=== PATIENT | male | born 1955 | race Caucasian/White ===

== ENCOUNTER 2017-08-20 07:09 | Outpatient (CLI) ==
--- NOTE | 2017-08-20 07:55 | DI ---
Exam: Three x-rays of the chest. Comparison: 12/23/2013. Reason for exam: Cough. FINDINGS: No pneumothorax, pleural effusion, or focal consolidation. The cardiac silhouette is not enlarged. Operative changes are seen after anterior cervical discectomy and fusion. There is flatten ing of the hemidiaphragms suggesting chronic lung disease. Impression: No acute cardiopulmonary process.
--- NOTE | 2017-08-20 07:58 | DI ---
Exam: Two x-rays of the right hip. Comparison: None available. Reason for exam: Pain. FINDINGS: No acute fracture or malalignment. The femoral head articulates with the acetabulum. Alexander gical clips are seen in the right groin. There is mild degenerative disease with acetabular sclerosi s. Impression: No acute fracture or malalignment in the right hip with mild degenerative disease
--- NOTE | 2017-08-20 08:00 | DI ---
Exam: Three x-rays of the lumbar spine. Comparison: None available. Reason for exam: Pain. FINDINGS: Intervertebral body graft spacer placement is seen at L4-L5. There is multilevel degenera tive disease with osteophyte formation and facet hypertrophy with intervertebral body disc space heig ht narrowing. There is no evidence of acute fracture or graft extrusion. Vascular calcifications ar e seen within the abdominal aorta. Impression: 1. No acute fracture or listhesis in the lumbar spine. 2. Multilevel degenerative disease with osteophyte formation, facet hypertrophy, and intervertebral body disc space height narrowing. 3. Intervertebral body graft spacer placement at L4-L5 without evidence of graft extrusion. Recomme nd comparison to previous imaging.
== END 2017-08-20 07:10 | disposition home or self-care (01) ==
LOC: RAD 07:09
PROVIDERS: ATTEND Internal Medicine
DX: M54.41 Lumbago with sciatica, right side (principal); R05 Cough

== ENCOUNTER 2018-04-19 16:46 | Emergency (ER) ==
[2018-04-19 16:52] VITALS: TEMP 97.8; BMI 26.9
[2018-04-19] MEDS ORDERED: DILAUDID 0.5 MG/0.5 ML SYRINGE IVP STA (17:05)
[2018-04-19] MEDS ORDERED: ZOFRAN 4 MG/2 ML IVP STA (17:07)
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
[2018-04-19] MEDS ORDERED: TENIVAC IM ONE (17:27)
[2018-04-19] MEDS ORDERED: ROCEPHIN 1 GM in SODIUM CHLORIDE 50 ML IV STA (17:28)
[2018-04-19] MEDS ORDERED: ROCEPHIN ONE (17:31)
[2018-04-19 18:06] VITALS: BP 100/70
== END 2018-04-19 18:25 | disposition short-term general hospital (02) ==
LOC: ED 16:46
DX: T23.352A Burn of third degree of left palm, initial encounter (principal); T23.342A Burn of third degree of multiple left fingers (nail), including thumb, initial encounter; T23.392A Burn of third degree of multiple sites of left wrist and hand, initial encounter; W40.1XXA Explosion of explosive gases, initial encounter; E11.9 Type 2 diabetes mellitus without complications; I10 Essential (primary) hypertension
CPT/HCPCS: 36415; 80053; 85025; 90471; 90714; 96361; 96365; 96375; 99285

== ENCOUNTER 2018-06-01 13:31 | Outpatient (CLI) ==
[2018-06-01 22:26] VITALS: TEMP 98.8
[2018-06-01 23:03] VITALS: BP 116/80
== END 2018-06-01 23:30 | disposition home or self-care (01) ==
LOC: LAB 13:31 → OPMED 23:30
PROVIDERS: ATTEND Internal Medicine
DX: R06.02 Shortness of breath (principal); I25.10 Atherosclerotic heart disease of native coronary artery without angina pectoris; D64.9 Anemia, unspecified
CPT/HCPCS: 36415; 36430; 82607; 82728; 82746; 83540; 83550; 85025; 85045; 86850; 86900; 86922

== ENCOUNTER 2018-06-08 10:51 | Outpatient (CLI) | END 2018-06-08 10:52 | disposition home or self-care (01) | LOC: LAB 10:51 | PROVIDERS: ATTEND Internal Medicine | DX: D64.9 Anemia, unspecified (principal) | CPT/HCPCS: 36415; 85025 ==

== ENCOUNTER 2018-06-15 10:37 | Outpatient (CLI) | END 2018-06-15 10:38 | disposition home or self-care (01) | LOC: LAB 10:37 | PROVIDERS: ATTEND Internal Medicine | DX: D64.9 Anemia, unspecified (principal) | CPT/HCPCS: 36415; 85025 ==

== ENCOUNTER 2022-01-29 16:25 | Inpatient (IN) ==
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
[2022-01-29] MEDS ORDERED: DUONEB NEB ONE (17:08)
[2022-01-29 17:09] LABS: BASOPHILS % (AUTO) 0.1 % (0.0-3.0); EOSINOPHILS % (AUTO) 0.1 % (0.0-7.0); HEMATOCRIT 22.9 % (42.0-52.0); IMMATURE GRANULOCYTE % (AUTO) 0.4 % (0.0-5.0); LYMPHOCYTES # (AUTO) 1.1 K/uL (0.60-3.4); LYMPHOCYTES % (AUTO) 13.2 (10.0-50.0); MEAN CORPUSCULAR HEMOGLOBIN 32.4 pg (27.0-31.0); MEAN CORPUSCULAR HGB CONC 34.9 (31.8-35.4); MEAN CORPUSCULAR VOLUME 92.7 fl (80.0-94.0); MONOCYTES # (AUTO) 0.7 K/uL (0.4-2.0); MONOCYTES % (AUTO) 8.3 (0-10); NEUTROPHILS # (AUTO) 6.4 K/ul (2.0-6.9); NEUTROPHILS % (AUTO) 77.9 % (42.2-75.2); PLATELET COUNT 104 10^3/uL (140-440); RDW COEFFICIENT OF VARIATION 14.1 % (11.6-14.8); RED BLOOD COUNT 2.47 10^6/ul (4.70-6.10); WHITE BLOOD COUNT 8.18 K/ul (4.2-10.2)
[2022-01-29 17:20] LABS: ALBUMIN 3.95 g/dL (3.5-5.0); ALKALINE PHOSPHATASE 48.5 U/L (56-119); ASPARTATE AMINO TRANSFERASE 146.6 U/L (17-59); BILIRUBIN,TOTAL 0.68 mg/dL (0.2-1.3); BLOOD UREA NITROGEN 38.8 mg/dL (9-20); CALCIUM 8.89 mg/dL (8.4-10.2); CARBON DIOXIDE 24.4 mmol/L (22-30.0); CHLORIDE 92.4 mmol/L (98-107); GLUCOSE 119.5 mg/dL (74-106); POTASSIUM 4.62 mmol/L (3.5-5.1); SODIUM 127.1 mmol/L (134.5-145); TOTAL PROTEIN 6.5 g/dL (6.3-8.2)
--- NOTE | 2022-01-29 18:46 | CT ---
EXAM: CT of the cervical spine without contrast TECHNIQUE: Noncontrast CT of the cervical spine performed with multiplanar reformats. HISTORY: Fall, neck pain. COMPARISON: CT cervical spine 09/06/2019. FINDINGS: No acute fracture. Straightening of the cervical lordosis. Status post C3 - C6 ACDF. No evidence of hardware complication. Multilevel degenerative changes are present including severe facet arthrosis on the left at C2-C3 and severe disc height loss and endplate degeneration and C6-C7. Degenerative pannus also noted around the dens. No evidence of severe osseous spinal canal stenosis. Multilevel moderate and severe osseous neural f oraminal stenosis. Multifocal calcific atherosclerosis including heavy calcified plaque at the bilaterally. Paraseptal emphysematous changes at the lung apices IMPRESSION: No fracture of the cervical spine. Status post C3 - C6 ACDF, no evidence of hardware complication. All CT scans are performed using dose optimization techniques as appropriate to the performed exam an d include at least one of the following: Automated exposure control, adjustment of the mA and/or kV according t o size, and the use of iterative reconstruction technique.
--- NOTE | 2022-01-29 18:46 | CT ---
EXAM: CT scan of head without contrast. HISTORY: Fall, forehead laceration COMPARISON: CT 09/06/2019 TECHNIQUE: Axial scans acquired at 5 mm slice thicknesses. Coronal and sagittal sequence completed FINDINGS: There is no intra or extra-axial hemorrhage seen. No mass or shift of midline structures is seen. There is some cortical atrophy involving the frontal and parietal lobes. There is decrease d attenuation seen in the periventricular matter consistent with chronic microvascular ischemic hyman es. No acute large vessel cerebrovascular accident is seen. Ventricles appear normal considering de gree of atrophy. There are no air-fluid levels visualized sinuses and no opacification mastoid air c ells is seen. IMPRESSION: 1. No acute intracranial finding is seen. 2. No intracranial hemorrhage or large vessel cerebrovascular accident identified. Mild cerebral at rophy and mild chronic supratentorial small vessel ischemic changes. Cavernous internal carotid kathrine morris atherosclerosis 3. Scalp contusion/laceration involving frontal scalp without adjacent cranial fracture. No radiopa que foreign body involving scalp All CT scans are performed using dose optimization techniques as appropriate to the performed exam an d include at least one of the following: Automated exposure control, adjustment of the mA and/or kV according t o size, and the use of iterative reconstruction technique.
[2022-01-29] MEDS ORDERED: NORCO 10-325 PO ONE (18:53)
[2022-01-29 20:19] LABS: OCCULT BLOOD SAMPLE 1 POSITIVE (NEGATIVE)
[2022-01-29 21:55] LABS: ADENOVIRUS (PCR) NOT DETECTED (NOT DETECT); BORDETELLA PARAPERTUSSIS (PCR) NOT DETECTED (NOT DETECT); BORDETELLA PERTUSSIS (PCR) NOT DETECTED (NOT DETECT); CHLAMYDIA PNEUMONIAE (PCR) NOT DETECTED (NOT DETECT); CORONAVIRUS 229E (PCR) NOT DETECTED (NOT DETECT); CORONAVIRUS HKU1 (PCR) NOT DETECTED (NOT DETECT); CORONAVIRUS NL63 (PCR) NOT DETECTED (NOT DETECT); CORONAVIRUS OC43 (PCR) NOT DETECTED (NOT DETECT); HUMAN METAPNEUMOVIRUS (PCR) NOT DETECTED (NOT DETECT); HUMAN RHINOVIRUS/ENTEROV (PCR) NOT DETECTED (NOT DETECT); INFLUENZA B (PCR) NOT DETECTED (NOT DETECT); MYCOPLASMA PNEUMONIAE (PCR) NOT DETECTED (NOT DETECT); PARAINFLUENZA VIRUS 1 (PCR) NOT DETECTED (NOT DETECT); PARAINFLUENZA VIRUS 2 (PCR) NOT DETECTED (NOT DETECT); PARAINFLUENZA VIRUS 3 (PCR) NOT DETECTED (NOT DETECT); PARAINFLUENZA VIRUS 4 (PCR) NOT DETECTED (NOT DETECT); RESPIRATORY SYNCYTIAL V (PCR) NOT DETECTED (NOT DETECT); SARS_COV_2 (PCR) NOT DETECTED (NOT DETECT)
[2022-01-29 22:12] LABS: ABG PH 7.52 (7.35-7.45)
[2022-01-29 22:13] LABS: BEecf 0.8 (-2.0-3.0); COHb 1.9 (0.5-1.5); HCO3 23.7 (21-28)
[2022-01-29 22:14] LABS: ABG O2 HGB 93.9 % (95-100); MetHb 1.4 (0-1.5); TCO2 24.6 (19-24); sO2 95.7 % (94-98); tHb 8.5 g/dl (11.7-17.4)
[2022-01-29] MEDS ORDERED: ATROPINE SULFATE PFS IVP PRN (23:34)
[2022-01-29] MEDS ORDERED: NITROSTAT SL PRN (23:34)
[2022-01-30] MEDS: SODIUM CHLORIDE 1,000 ML IV SCH ×2 (00:11→09:27)
[2022-01-30] MEDS: DECADRON IVP SCH ×2 (00:11→09:29)
[2022-01-30 01:13] VITALS: BMI 21.2
[2022-01-30] MEDS ORDERED: NORCO 10-325 PO PRN (01:53)
[2022-01-30 05:29] LABS: BASOPHILS % (AUTO) 0.2 % (0.0-3.0); HEMATOCRIT 20.3 % (42.0-52.0); HEMOGLOBIN 7.1 g/dl (14.0-18.0); IMMATURE GRANULOCYTE % (AUTO) 0.3 % (0.0-5.0); LYMPHOCYTES # (AUTO) 0.6 K/uL (0.60-3.4); LYMPHOCYTES % (AUTO) 10.2 (10.0-50.0); MEAN CORPUSCULAR HEMOGLOBIN 32.1 pg (27.0-31.0); MEAN CORPUSCULAR VOLUME 91.9 fl (80.0-94.0); MONOCYTES # (AUTO) 0.3 K/uL (0.4-2.0); MONOCYTES % (AUTO) 4.6 (0-10); NEUTROPHILS # (AUTO) 5.1 K/ul (2.0-6.9); NEUTROPHILS % (AUTO) 84.7 % (42.2-75.2); PLATELET COUNT 87 10^3/uL (140-440); RDW COEFFICIENT OF VARIATION 14.1 % (11.6-14.8); RED BLOOD COUNT 2.21 10^6/ul (4.70-6.10); WHITE BLOOD COUNT 6.06 K/ul (4.2-10.2)
[2022-01-30 05:42] LABS: ALANINE AMINOTRANSFERASE 70.7 U/L (0-50); ALBUMIN 3.55 g/dL (3.5-5.0); ALKALINE PHOSPHATASE 45.9 U/L (56-119); ASPARTATE AMINO TRANSFERASE 139.8 U/L (17-59); BILIRUBIN,TOTAL 0.58 mg/dL (0.2-1.3); BLOOD UREA NITROGEN 39.2 mg/dL (9-20); CALCIUM 8.28 mg/dL (8.4-10.2); CARBON DIOXIDE 23.8 mmol/L (22-30.0); CHLORIDE 93.9 mmol/L (98-107); CREATININE 1.79 mg/dL (0.60-1.10); GLUCOSE 120.5 mg/dL (74-106); POTASSIUM 4.19 mmol/L (3.5-5.1); TOTAL PROTEIN 6.05 g/dL (6.3-8.2)
[2022-01-30 05:53] LABS: TROPONIN I 0.051 ng/ml (0.0000-0.120)
[2022-01-30 05:58] LABS: CREATINE KINASE MB 2.77 ng/ml (0.0-2.38)
[2022-01-30 07:58] LABS: BILIRUBIN,URINE Negative (NEGATIVE); CLARITY,URINE Clear (CLEAR); COLOR,URINE Yellow (YELLOW); GLUCOSE, URINE (UA) Negative (NEGATIVE); KETONES,URINE Negative (NEGATIVE); LEUKOCYTE ESTERASE ,URINE Negative (NEGATIVE); NITRITE,URINE Negative (NEGATIVE); PH,URINE 5.5 (5-9); PROTEIN,URINE Negative (NEGATIVE); URINE, BLOOD Negative (NEGATIVE); UROBILINOGEN,URINE 0.2 (0.2)
[2022-01-30] MEDS ORDERED: GLUCOPHAGE PO SCH (08:30)
[2022-01-30] MEDS ORDERED: PRILOSEC PO SCH (09:00)
[2022-01-30] MEDS: PLAVIX PO SCH (09:29)
[2022-01-30] MEDS: LEXAPRO PO SCH (09:29)
[2022-01-30] MEDS: PROTONIX PO SCH ×2 (09:29→16:29)
[2022-01-30] MEDS: SODIUM CHLORIDE 500 ML IV SCH ×2 (09:29→15:57)
[2022-01-30] MEDS: ROCEPHIN 1 GM/50 ML D5W 1 GM/50 ML BAG IV SCH (09:29)
[2022-01-30] MEDS: NEURONTIN PO SCH ×2 (09:29→20:15)
[2022-01-30 10:14] LABS: ALANINE AMINOTRANSFERASE 73.1 U/L (0-50); ALBUMIN 3.51 g/dL (3.5-5.0); ALKALINE PHOSPHATASE 46.3 U/L (56-119); ASPARTATE AMINO TRANSFERASE 139.4 U/L (17-59); BILIRUBIN,TOTAL 0.62 mg/dL (0.2-1.3); TOTAL PROTEIN 5.76 g/dL (6.3-8.2)
--- NOTE | 2022-01-30 10:41 | PCM.PROG ---
Attending Provider: ATTENDING PROVIDER: Dr. CHIRAG JUDGE This patient is seen with Colleen Farmer, Nurse Practitioner. DATE OF SERVICE: 01/30/22 SUBJECTIVE: This 67 year old /WHITE M was hospitalized 01/29/22. The patient came through the ER last night. He had fallen at home hitting his head on coffee table. Kidney function is significantly elevated. Liver function is elevated. Renal function has improved this morning. Hgb is down to 7.1. He has weakness, pallor and shortness of breath. He says he has slight abdominal pain but denies any tenderness. REVIEW OF SYSTEMS: CONSTITUTIONAL: No night sweats. No fatigue, malaise, lethargy. No fever or chills. Weakness. HEENT: Eyes: No visual changes. No eye pain. No eye discharge. ENT: No runny nose. No epistaxis. No sinus pain. No odynophagia. No congestion. RESPIRATORY: No cough, no congestion. No hemoptysis. No shortness of breath. CARDIOVASCULAR: No angina symptoms. No CHF symptoms. No atypical chest pain for CAD. No palpitations. No orthopnea.. GASTROINTESTINAL: Abdominal pain. No nausea or vomiting. No diarrhea or constipation. No hematemesis. No hematochezia. GENITOURINARY: No urgency. No frequency. No dysuria. No hematuria. No obstructive symptoms. No discharge. No pain. No significant abnormal bleeding. MUSCULOSKELETAL: No musculoskeletal pain; no joint swelling. NEUROLOGICAL: Awake, alert, oriented to time, place and person. No headache. No neck pain. No syncope. No seizures. No dizziness. PSYCHIATRIC: Not anxious. No depression. No suicidal thoughts. No homicidal thoughts. SKIN: No rash. No lesions. No wounds. Pallor. ENDOCRINE: No unexplained weight loss. No weight gain. HEMATOLOGIC/LYMPHATIC: Anemia. No purpura. No petechiae. No prolonged or excessive bleeding. No palpable lymph nodes. PHYSICAL EXAMINATION: GENERAL: The patient is awake, alert and oriented, sitting in bed in no distress. VITAL SIGNS: Temperature 98.3 F, Pulse 95, Respiratory Rate 18, BP 119/68, Pulse Ox 96% HEENT: Head normocephalic, atraumatic. Eyes: Extraocular muscles are intact. Pupils are equal, round and reactive to light and accommodation. Ears: No lesions. Nose appeared normal. Throat: No exudate or erythema. NECK: Supple. No JVD, no carotid bruit. No lymphadenopathy or thyromegaly. LUNGS: Diminished breath sounds. Clear to auscultation. Percussion note normal. Chest symmetrical. HEART: S1, S2, no S3. No murmurs. No cyanosis or clubbing. No ascites. Pulses: Dorsalis pedis and posterior tibial pulses +1 to +2 both sides. ABDOMEN: Soft. Non-tender. Bowel sounds active. No CVA tenderness. No mass felt. EXTREMITIES: No edema. Full range of motion of all extremities, equal. NEUROLOGIC: No focal deficit. Cranial nerves II through XII are grossly intact. No headache. No double vision. SKIN: Not dry. Intact. Turgor-normal. Pallor LYMPHATIC: No palpable lymph nodes/no lymphedema. MUSCULOSKELETAL: Normal joints with no swelling. Muscle tone is normal. LAB REVIEW: 01/30/22 05:09 01/30/22 05:09 01/30/22 07:40: Urine Color Yellow, Urine Clarity Clear, Urine pH 5.5, Ur Specific [place] 1.025, Urine Protein Negative, Urine Glucose (UA) Negative, Urine Ketones Negative, Urine Blood Negative, Urine Nitrite Negative, Urine Bili giraldo Negative, Urine Urobilinogen 0.2, Ur Leukocyte Esterase Negative 01/30/22 05:09: Sodium 126.0 L, Potassium 4.19, Chloride 93.9 L, Carbon Dioxide 23.8, Anion Gap 12.49, BUN 39.2 H, Creatinine 1.79 H, Estimated GFR (MDRD) 38.00, BUN/Creatinine Ratio 21.89, Glucose 120.5 H, Calcium 8.28 L, Total Bilirubin 0.58, AST 139.8 H, ALT 70.7 H, Alkaline Phosphatase 45.9 L, Total Creatine Kinase 258.0 H, CK-MB (CK-2) 2.770 H, CK-MB (CK-2) % 1.0700, Troponin I 0.051, Total Protein 6.05 L, Albumin 3.55, Globulin 2.50, Albumin/Globulin Ratio 1.42 01/30/22 05:09: WBC 6.06, RBC 2.21 L, Hgb 7.1 L, Hct 20.3 L, MCV 91.9, MCH 32.1 H, MCHC 35.0, RDW Coeff of Delia 14.1, Plt Count 87 L, Immature Gran % (Auto) 0.3, Neut % (Auto) 84.7 H, Lymph % (Auto) 10.2, [place] % (Auto) 4.6, Eos % (Auto) 0.0, Baso % (Auto) 0.2, Neut # (Auto) 5.1, Lymph # (Auto) 0.6, [place] # (Auto) 0.3 L, Eos # (Auto) 0.0, Baso # (Auto) 0.0, Immature Gran # (Auto) 0.0 01/29/22 21:00: Adenovirus (PCR) Not detected, B. pertussis DNA (PCR) Not detected, B.parapertussis DNA PCR Not detected, C. pneumoniae DNA (PCR) Not detected, Coronavirus OC43 (PCR) Not detected, Coronavirus HKU1 (PCR) Not detected, Coronavirus 229E (PCR) Not detected, Coronavirus NL63 (PCR) Not detected, Human Metapneumovir PCR Not detected, Influenza Type A (PCR) Not detected, Influenza B (RT-PCR) Not detected, M. pneumoniae (PCR) Not detected, Parainfluenza 1 (PCR) Not detected, Parainfluenza 2 (PCR) Not detected, Parainfluenza 3 (PCR) Not detected, Parainfluenza 4 (PCR) Not detected, RSV (PCR) Not detected, Entero/Rhino (PCR) Not detected, SARS-CoV-2 (PCR) Not detected 01/29/22 21:00: Puncture Site Rrad, Base Excess 0.8, O2 Saturation 95.7, ABG pH 7.52 H*, ABG pCO2 29.0 L, ABG pO2 71.0 L, ABG HCO3 23.7, ABG Total CO2 24.6 H, Tony Test +, Hemoglobin 1.4, Oxyhemoglobin 93.9 L, Carboxyhemoglobin 1.9 H, Total Hemoglobin 8.5 L 01/29/22 18:53: Stl Occult Blood (IFOB) Positive 01/29/22 17:03: Sodium 127.1 L, Potassium 4.62, Chloride 92.4 L, Carbon Dioxide 24.4, Anion Gap 14.92, BUN 38.8 H, Creatinine 2.00 H, Estimated GFR (MDRD) 33 .00, BUN/Creatinine Ratio 19.40, Glucose 119.5 H, Calcium 8.89, Total Bilirubin 0.68, AST 146.6 H, ALT 59.0 H, Alkaline Phosphatase 48.5 L, Total Protein 6.50, Albumin 3.95, Globulin 2.55, Albumin/Globulin Ratio 1.54 01/29/22 17:03: WBC 8.18, RBC 2.47 L, Hgb 8.0 L, Hct 22.9 L, MCV 92.7, MCH 32.4 H, MCHC 34.9, RDW Coeff of Delia 14.1, Plt Count 104 L, Immature Gran % (Auto) 0.4, Neut % (Auto) 77.9 H, Lymph % (Auto) 13.2, [place] % (Auto) 8.3, Eos % (Auto) 0.1, Baso % (Auto) 0.1, Neut # (Auto) 6.4, Lymph # (Auto) 1.1, [place] # (Auto) 0.7, Eos # (Auto) 0.0, Baso # (Auto) 0.0, Immature Gran # (Auto) 0.0 ASSESSMENT: Please see below. 1. Symptomatic anemia, positive occult 2. Elevated liver function 3. Acute kidney injury 4. Head injury with laceration PLAN: 1. CTA neck 2. Type and cross and give two unit 3. CT of abdomen and pelvis with and without 3. Decrease fluids to 83cc an hour 5. Hepatitis Panel 6. Hold Metformin 7. Chest x-ray 8. Protonix 40mg BID 9. Discontinue Omeprazole 10.Hold Lipitor 11.Restart Plavix Plan and coordination of the patient's care discussed in the presence of Helper Shear Operator and nurse. SCRIBED BY: Kyle CARVERist scribed while in presence of service performed by Dr. Judge/Colleen Farmer APRN on 01/30/22 ([id number])
[2022-01-30] MEDS: TYLENOL PO PRN (12:03)
[2022-01-30 12:32] LABS: OCCULT BLOOD SAMPLE 2 NO SPECIMEN RECEIVED (NEGATIVE); OCCULT BLOOD SAMPLE 3 NO SPECIMEN RECEIVED (NEGATIVE)
--- NOTE | 2022-01-30 14:07 | DI ---
EXAM: Chest one view, frontal view only. HISTORY: Chest trauma due to a fall. Chronic obstructive pulmonary disease. COMPARISON: 01/21/2022. FINDINGS: The heart size is normal. There is no pulmonary vascular congestion. Calcified granuloma tous changes noted. The lungs are clear. No pleural effusion or pneumothorax is seen. No acute oss eous abnormality is identified. Old left-sided rib fractures. Since the prior study, there has been no significant interval change. IMPRESSION: No acute cardiopulmonary process.
--- NOTE | 2022-01-30 14:27 | PN ---
DATE OF SERVICE: 01/29/22 SUBJECTIVE: The patient was brought to the emergency room by family as he had fallen 2-[address] scan of the head was negative. Also had further test done where his creatinine was 2 with BUN more than 30 and dehydrated. The patient has history of anemia and atrial fibrillation. The patient's anemia is chronic. The patient's Guaiac stools were negative. The patient has been followed by hematology/oncologist and he was supposed to go there. We don't know where he has gone and seen artist color separation or not. In the patient he was followed by Hematology/oncologist for his anemia. The patient has no chest pain, no PND. She is just weak and tired. No cough and no congestion. Oxygen saturation on room air is 93%. PLAN: 1. Admit the patient 2. IV fluids 3. Telemetry 4. Monitor CBC and CMP 5. The patient is smoker, noncompliant of all aspect of medical care. 6. He is single and lives by himself with the help of ex-wfe. TIME SPENT: More than 30 minutes. Plan and coordination of the patient's care discussed in the presence of nurse. BERTA
--- NOTE | 2022-01-30 15:00 | CT ---
EXAM: CT abdomen pelvis with and without contrast HISTORY: Fall with stomach pain COMPARISON: None TECHNIQUE: Serial axial images of the abdomen pelvis were performed before and after 100 mL is of Om nipaque IV contrast was administered. These were obtained from the lung bases through the inferior p perez. FINDINGS: The lung bases are clear. The liver is unremarkable. Gallbladder is minimally distended. The adrenal glands are unremarkable. The kidneys are normal with two small low attenuation cysts on the left. Spleen demonstrates calci fied granulomas. Pancreas is unremarkable. The stomach is mildly distended with extensive gastric w all thickening. Small bowel in the abdomen pelvis is unremarkable. The colon is unremarkable. Prostate is normal. Urinary bladder is partially distended. The osseous structures demonstrate degenerative disease. IMPRESSION: 1. Extensive gastric wall thickening concerning for neoplasm versus lymphoma. Recommend direct visu alization to further evaluate. 2. Calcific atherosclerotic disease. All CT scans are performed using dose optimization techniques as appropriate to the performed exam an d include at least one of the following: Automated exposure control, adjustment of the mA and/or kV according t o size, and the use of iterative reconstruction technique.
--- NOTE | 2022-01-30 15:26 | CT ---
EXAM: CTA of the neck was performed with and without contrast TECHNIQUE: Helical axial CTA of the neck was performed with and without contrast with multiplanar re constructions and separate work station 3-D renderings. COMPARISON: Carotid duplex from 01/21/2022. HISTORY: Dizziness and weakness. FINDINGS: There is no acute soft tissue abnormality. There are no neck masses or pathologic lymph nod es. The thyroid gland is unremarkable. No acute abnormality in the upper chest. There are no acute os seous abnormalities. There are postoperative changes in the cervical spine and advanced degenerative changes. Aorta: The top of the aorta demonstrates a calcific atherosclerosis. There is a focal high-grade st enosis at the origin of the right subclavian artery with a post stenotic dilatation. There is normal branching anatomy of the great vessels. Right carotid artery: The right common carotid artery is occluded at its origin. There is some recon stitution of the external carotid artery branches via muscular collaterals from the thyrocervical yisel nks. Left carotid artery: The left common carotid artery is occluded at its origin. There is some reconst itution of the external carotid artery from collaterals from the thyrocervical trunks. Right vertebral artery: There is mild to moderate narrowing of the origin of the right vertebral art jm due to calcific atherosclerosis at the origin. The right vertebral artery is dominant. The cour se of the right vertebral artery in the neck is normal with no additional stenosis or dissection or a neurysm. Left vertebral artery: The left vertebral artery is occluded proximally and is reconstituted in the proximal V2 segment by muscular collaterals. The left vertebral artery is congenitally very diminuti ve but is patent in the V2 and V3 segments distally. Intracranial circulation: The vessels of the [place] are included in this examination des deep for evaluation of the cervical vessels. There is reconstitution of the bilateral supraclinoid in ternal carotid arteries via large posterior communicating arteries and retrograde flow in the ophthal lois arteries. Middle cerebral artery M1 and M2 segments appear to be widely patent as well as the an terior cerebral arteries. The vertebral basilar system is also widely patent. IMPRESSION: 1. Prior occlusion of the bilateral common carotid arteries at their origins from the aortic arch. There is reconstitution of the bilateral external carotid arteries via muscular collaterals from the bilateral thyrocervical trunks. 2. Prior occlusion of the proximal aspect of the left vertebral artery which is reconstituted in the proximal V2 segment via a muscular collaterals as well. The left vertebral artery is congenitally v jm diminutive but is patent to the skull base and the intracranial V4 segment. 3. Mild to moderate stenosis of the origin of the dominant right vertebral artery. The right verteb ral artery in the neck is otherwise widely patent. 4. Reconstitution of the bilateral supraclinoid internal carotid arteries via large posterior commun icating arteries as well as retrograde flow in the bilateral ophthalmic arteries. 5. No large vessel occlusion is seen intracranially. The middle cerebral artery M1 and M2 branches and the anterior cerebral arteries and basilar artery and vertebral arteries and posterior cerebral a rteries appear to be widely patent. 6. 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 Results called to Colleen Farmer NP at 3:[address] scans are performed using dose optimization techniques as appropriate to the performed exam an d include at least one of the following: Automated exposure control, adjustment of the mA and/or kV according t o size, and the use of iterative reconstruction technique.
[2022-01-30] MEDS: DUONEB NEB PRN (16:00)
[2022-01-30 17:29] LABS: HEMATOCRIT 26.2 % (42.0-52.0); HEMOGLOBIN 9.1 g/dl (14.0-18.0)
[2022-01-30] MEDS: ELIQUIS PO SCH (20:15)
[2022-01-31 04:54] LABS: BASOPHILS % (AUTO) 0.2 % (0.0-3.0); HEMATOCRIT 22.6 % (42.0-52.0); HEMOGLOBIN 8.1 g/dl (14.0-18.0); IMMATURE GRANULOCYTE % (AUTO) 0.7 % (0.0-5.0); LYMPHOCYTES # (AUTO) 0.9 K/uL (0.60-3.4); LYMPHOCYTES % (AUTO) 20.1 (10.0-50.0); MEAN CORPUSCULAR HEMOGLOBIN 31.8 pg (27.0-31.0); MEAN CORPUSCULAR HGB CONC 35.8 (31.8-35.4); MEAN CORPUSCULAR VOLUME 88.6 fl (80.0-94.0); MONOCYTES # (AUTO) 0.4 K/uL (0.4-2.0); MONOCYTES % (AUTO) 8.7 (0-10); NEUTROPHILS # (AUTO) 3.1 K/ul (2.0-6.9); NEUTROPHILS % (AUTO) 70.3 % (42.2-75.2); PLATELET COUNT 65 10^3/uL (140-440); RDW COEFFICIENT OF VARIATION 14.7 % (11.6-14.8); RED BLOOD COUNT 2.55 10^6/ul (4.70-6.10); WHITE BLOOD COUNT 4.38 K/ul (4.2-10.2)
[2022-01-31 05:15] LABS: ALANINE AMINOTRANSFERASE 81.8 U/L (0-50); ALBUMIN 3.15 g/dL (3.5-5.0); ALKALINE PHOSPHATASE 39.5 U/L (56-119); ASPARTATE AMINO TRANSFERASE 111.7 U/L (17-59); BILIRUBIN,TOTAL 1.27 mg/dL (0.2-1.3); BLOOD UREA NITROGEN 32.2 mg/dL (9-20); CALCIUM 8.12 mg/dL (8.4-10.2); CARBON DIOXIDE 22.2 mmol/L (22-30.0); CHLORIDE 97.6 mmol/L (98-107); CREATININE 1.37 mg/dL (0.60-1.10); GLUCOSE 108.3 mg/dL (74-106); POTASSIUM 3.44 mmol/L (3.5-5.1); SODIUM 127.9 mmol/L (134.5-145); TOTAL PROTEIN 5.52 g/dL (6.3-8.2)
[2022-01-31] MEDS: PROTONIX PO SCH ×2 (05:40→17:45)
[2022-01-31] MEDS: SODIUM CHLORIDE 500 ML IV SCH ×4 (07:11→22:10)
[2022-01-31] MEDS: NEURONTIN PO SCH ×2 (08:55→20:19)
[2022-01-31] MEDS: ELIQUIS PO SCH ×2 (08:56→20:19)
[2022-01-31] MEDS: LEXAPRO PO SCH (08:56)
[2022-01-31] MEDS: ROCEPHIN 1 GM/50 ML D5W 1 GM/50 ML BAG IV SCH (08:56)
[2022-01-31] MEDS: PLAVIX PO SCH (08:56)
[2022-01-31] MEDS ORDERED: K-DUR PO SCH (09:00)
[2022-01-31] MEDS: DECADRON IVP SCH (09:30)
[2022-01-31] MEDS: POTASSIUM CHL 10% ORAL SOL PO SCH ×2 (09:36→17:54)
--- NOTE | 2022-01-31 09:55 | PCM.PROG ---
Attending Provider: ATTENDING PROVIDER: Dr. CHIRAG RAZA DATE OF SERVICE: 01/31/22 SUBJECTIVE: This 67 year old /WHITE M was hospitalized 01/29/22 with dehydration and COPD exacerbation. The patient's COPD exacerbation seems under control. The patient had anemia. With hydration done by IV fluids HGB dropped to 7.1 and was symptomatic. He was given 2 units of PRBCs. He is oriented times three. REVIEW OF SYSTEMS: CONSTITUTIONAL: No night sweats. No fatigue, malaise, lethargy. No fever or chills. HEENT: Eyes: No visual changes. No eye pain. No eye discharge. ENT: No runny nose. No epistaxis. No sinus pain. No odynophagia. No congestion. RESPIRATORY: No cough, no congestion. No hemoptysis. No shortness of breath. CARDIOVASCULAR: No angina symptoms. No CHF symptoms. No atypical chest pain for CAD. No palpitations. No orthopnea.. GASTROINTESTINAL: Poor appetite. No abdominal pain. No nausea or vomiting. No diarrhea or constipation. No hematemesis. No hematochezia. GENITOURINARY: No urgency. No frequency. No dysuria. No hematuria. No obstructive symptoms. No discharge. No pain. No significant abnormal bleeding. MUSCULOSKELETAL: No musculoskeletal pain; no joint swelling. NEUROLOGICAL: Awake, alert, oriented to time, place and person. No headache. No neck pain. No syncope. No seizures. No dizziness. PSYCHIATRIC: Not anxious. No depression. No suicidal thoughts. No homicidal thoughts. SKIN: No rash. No lesions. No wounds. ENDOCRINE: No unexplained weight loss. No weight gain. HEMATOLOGIC/LYMPHATIC: No anemia. No purpura. No petechiae. No prolonged or excessive bleeding. No palpable lymph nodes. PHYSICAL EXAMINATION: GENERAL: The patient is awake, alert and oriented, lying/sitting in bed in no distress. VITAL SIGNS: Temperature 97.6 F, Pulse 71, Respiratory Rate 18, BP 121/70, Pulse Ox 96% HEENT: Head normocephalic, atraumatic. Eyes: Extraocular muscles are intact. Pupils are equal, round and reactive to light and accommodation. Ears: No lesions. Nose appeared normal. Throat: No exudate or erythema. NECK: Supple. No JVD, no carotid bruit. No lymphadenopathy or thyromegaly. LUNGS: Decreased breath sounds. Clear to auscultation. Percussion note normal. Chest symmetrical. HEART: S1, S2, no S3. No murmurs. No cyanosis or clubbing. No ascites. Pulses: Dorsalis pedis and posterior tibial pulses +1 to +2 both sides. ABDOMEN: Soft. Non-tender. Bowel sounds active. No CVA tenderness. No mass felt. EXTREMITIES: Pedal pulses feeble. No edema. Full range of motion of all extremities, equal. NEUROLOGIC: No focal deficit. Cranial nerves II through XII are grossly intact. No headache, no double vision or headache. SKIN: Warm and dry. Intact. Turgor-normal. LYMPHATIC: No palpable lymph nodes/no lymphedema. MUSCULOSKELETAL: Normal joints with no swelling. Muscle tone is normal. LAB REVIEW: 01/31/22 04:31 01/31/22 04:31 01/31/22 04:31: Sodium 127.9 L, Potassium 3.44 L, Chloride 97.6 L, Carbon Dioxide 22.2, Anion Gap 11.54, BUN 32.2 H, Creatinine 1.37 H, Estimated GFR (M DRD) 52.00, BUN/Creatinine Ratio 23.50, Glucose 108.3 H, Calcium 8.12 L, Total Bilirubin 1.27, AST 111.7 H D, ALT 81.8 H, Alkaline Phosphatase 39.5 L, Total Protein 5.52 L, Albumin 3.15 L, Globulin 2.37, Albumin/Globulin Ratio 1.32 01/31/22 04:31: WBC 4.38, RBC 2.55 L, Hgb 8.1 L, Hct 22.6 L, MCV 88.6, MCH 31.8 H, MCHC 35.8 H, RDW Coeff of Delia 14.7, Plt Count 65 L, Immature Gran % (Auto) 0.7, Neut % (Auto) 70.3, Lymph % (Auto) 20.1, [place] % (Auto) 8.7, Eos % (Auto) 0.0, Baso % (Auto) 0.2, Neut # (Auto) 3.1, Lymph # (Auto) 0.9, [place] # (Auto) 0.4, Eos # (Auto) 0.0, Baso # (Auto) 0.0, Immature Gran # (Auto) 0.0 01/30/22 17:20: Hgb 9.1 L, Hct 26.2 L 01/30/22 09:45: Total Bilirubin 0.62, Direct Bilirubin 0.00, AST 139.4 H, ALT 73.1 H, Alkaline Phosphatase 46.3 L, Total Protein 5.76 L, Albumin 3.51 01/30/22 09:45: Blood Type A NEGATIVE, Antibody Screen Negative, Crossmatch (AHG) See Detail 01/29/22 18:53: Stool Occult Blood #2 No specimen received, Stool Occult Blood #3 No specimen received ASSESSMENT: Please see below. 1. COPD is under control. 2. Renal azotemia resolved. 3. 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 He has refused to see a vascular surgeon. 4. He has paroxysmal atrial fibrillation and is on Eliquis. Monitoring CBC and CMP daily. 5. The other finding during this hospitalization is thickening of the gastric wall which could be lymphoma versus neoplasm. He has chronic anemia and may not be stable enough to undergo surgery. The patient declines to be referred to a GI specialist at the present time. 6. Hypokalemia treated with potassium supplement. PLAN: 1. D/C Plavix as the patient is on Eliquis. 2. Continue Rocephin IV. 3. K-tab 20 mEq twice a day. Plan and coordination of the patient's care discussed in the presence of Head Resident and nurse. EDUCATION: The patient's ex- is present today and all things discussed. Yesterday Lakeisha Wallis was present and all diagnoses discussed at that time. The patient is DNR and wants to be DNR. CONDITION: STABLE SCRIBED BY: ARELIS CARPENTER, Electronics Technology Department Chair scribed while in presence of service performed by Dr. CHIRAG RAZA on 01/31/22 ([id number])
--- NOTE | 2022-01-31 10:50 | RS.PTINEVL ---
Subjective - Patient information Date of Evaluation: 01/31/22 Date of Arrival on Unit: 01/29/22 Admitted From:: Home Diagnosis: anemia, falls, lacerations to head Usual Living Arrangement: Alone Home Environment: House, Stairs (few), Rail Medical History: Hypertension, COPD, Diabetes, Arthritis Medical History Comments:: GERD, depression, anxiety Surgical History: Cervical Spine, Lumbar Spine Surgical History Comments:: amputation L hand Medications: see chart Subjective Information/ Patient Comments:: pt states that he has fallen several times at home. He reports that he gets very dizzy. pt is agreeable to try to get up with PT. Nursing reports pt has refused treatment by vascular or GI and that he is aware of the risks. - Level of function Prior to this admission, the patient could do the following:: Independent Selfcare, Independent ADL's, Independent Ambulation Current Level of Function: Partially Dependent Current Equipment Used at Home: cane at times Interventions - Objective Patient Orientation: Person, Place, Time, Situation Current Interventions: IV's, Telemetry Observation: pt with lacerations to face and bruising due to fall. Range of Motion - ROM Right Upper Extremity AROM: WFL's Left Upper Extremity AROM: WFL's Right Lower Extremity AROM: WFL's Left Lower Extremity AROM: WFL's Muscle Strength - Muscle Strength Right Upper Extremity Strength: Mild Weakness (grossly 4/5) Left Upper Extremity Strength: Mild Weakness (shld flex 4-/5, elbow flex/ext 4/5) Right Lower Extremity Strength: Mild Weakness (hip flex 4-/5, knee flex/ext 4/5, ankle DF/PF 4/5) Left Lower Extremity Strength: Mild Weakness (hip flex 4-/5, knee flex/ext 4/5, ankle DF/PF 4/5) Sensation - Sensation Right Upper Extremity Sensation: Impaired (n/t R hand) Left Upper Extremity Sensation: Intact/Normal Right Lower Extremity Sensation: Intact/Normal Left Lower Extremity Sensation: Impaired (n/t LLE) Palpation Palpation Findings: None/Normal Balance - Sitting Balance and Reactions Static Sitting Balance: Good Dynamic Sitting Balance: Fair - Standing Balance and Reactions Static Standing Balance: Poor Dynamic Standing Balance: Poor Standing Equilibrium Reactions: Delayed Left, Delayed Right Standing Protective Reactions: Delayed Left, Delayed Right Functional Mobility - Bed Mobility Rolling R/L: CGA Supine to Sit: CGA Sit to Supine: Min Assist - Transfers Sit to Stand: Min Assist Stand to Sit: Min Assist - Safety Awareness Safety Awareness: Fair JIMMIE INDEX SCORE: n/a Ambulation - Ambulation Assistive Device Used: Platform Walker (rolling walker) Orthotic/Prosthetic Device: No Distance: 80ft Assistance needed with Ambulation: Min Assist, 1 person assist, 2 person assist Quality of Ambulation: min x 1 +1 for IV. Required assist to guide rwx Gait Deviations: Forward posture, Short stride, Deviates from path Factors Affecting Ambulation: Decreased Balance, Weakness, Decreased Safety, Limited Endurance, Limited Sensation Treatment time - Time with patient Length of Evaluation: 19 Total treatment time: 28 Patient Education - Education Patient Education: Activity Modification, Education of Plan of Care Teaching Recipient: Patient Teaching Methods: Discussion Comments: discussion regarding POC and safety with transfers Assessment - Assessment Problem List:: Decreased level of function, Requires training/education, Decreased safety/Risk of falls, Weakness, Cognitive status limits abilities Rehab Potential: Fair Further Therapy Indicated?: Yes Candidate for Swing Bed for Therapy Services?: Feel pt may not be a candidate for swing bed for therapy due to medical diagnosis, may not be able to tolerate amount of therapy time required in swing bed. Comments: Feel pt would benefit from w/c and/or rolling walker w platform attachment. Evaluation Complexity: HISTORY: Medium, EXAM OF BODY SYSTEMS: Medium, CLINICAL PRESENTATION: Medium, CLINICAL DECISION MAKING: Medium Patient's Goal(s): pt wants to return home. Short Term Goals GOAL #1: pt independent with rolling and scooting in bed. Goal to be met by: 02/03/22 GOAL #2: Transfer sup to/from sit SBA Goal to be met by: 02/03/22 GOAL #3: Transfers sit to/from stand CGA to SBA Goal to be met by: 02/03/22 GOAL #4: pt amb with platform RWX 100ft with CGA x 1. Goal to be met by: 02/03/22 GOAL #5: Dyn sit balance fair+ Goal to be met by: 02/03/22 [employer] Goals GOAL #1: pt transfer sup to/from sit to/from stand SBA to independent Goal to be met by: 02/05/22 GOAL #2: pt amb with platform rwx functional household distances SBA Goal to be met by: 02/05/22 GOAL #3: Dyn stand balance fair- Goal to be met by: 02/05/22 Plan Plan of Care: Therapeutic EX, Therapeutic Activity Other:: gait training Frequency of Treatment: 1-2 X day, as tolerated Duration of Treatment: 5 days Anticipated Discharge Destination: Home Treatment Diagnosis (ICD 10 Codes): impaired balance R 26.81. difficulty wa lking R 26.2. falls R 29.6. weakness M62.81 Has the Physician been added for Co-signature?: Yes
[2022-01-31] MEDS: DUONEB NEB PRN (15:35)
[2022-01-31] MEDS: HUMULIN R SUBCUT PRN (17:46)
[2022-02-01] MEDS: SODIUM CHLORIDE 500 ML IV SCH ×2 (05:06→17:42)
[2022-02-01 05:23] LABS: EOSINOPHILS % (AUTO) 0.3 % (0.0-7.0); HEMATOCRIT 22.8 % (42.0-52.0); HEMOGLOBIN 7.9 g/dl (14.0-18.0); IMMATURE GRANULOCYTE % (AUTO) 0.6 % (0.0-5.0); LYMPHOCYTES # (AUTO) 0.9 K/uL (0.60-3.4); LYMPHOCYTES % (AUTO) 28.3 (10.0-50.0); MEAN CORPUSCULAR HEMOGLOBIN 31.9 pg (27.0-31.0); MEAN CORPUSCULAR HGB CONC 34.6 (31.8-35.4); MEAN CORPUSCULAR VOLUME 91.9 fl (80.0-94.0); MONOCYTES # (AUTO) 0.3 K/uL (0.4-2.0); MONOCYTES % (AUTO) 8.9 (0-10); NEUTROPHILS % (AUTO) 61.9 % (42.2-75.2); PLATELET COUNT 84 10^3/uL (140-440); RDW COEFFICIENT OF VARIATION 14.9 % (11.6-14.8); RED BLOOD COUNT 2.48 10^6/ul (4.70-6.10); WHITE BLOOD COUNT 3.15 K/ul (4.2-10.2)
[2022-02-01 05:37] LABS: ALANINE AMINOTRANSFERASE 81.1 U/L (0-50); ALBUMIN 3.17 g/dL (3.5-5.0); ALKALINE PHOSPHATASE 36.1 U/L (56-119); ASPARTATE AMINO TRANSFERASE 86.1 U/L (17-59); BILIRUBIN,TOTAL 0.67 mg/dL (0.2-1.3); BLOOD UREA NITROGEN 23.4 mg/dL (9-20); CALCIUM 8.34 mg/dL (8.4-10.2); CARBON DIOXIDE 21.7 mmol/L (22-30.0); CHLORIDE 101.6 mmol/L (98-107); CREATININE 1.08 mg/dL (0.60-1.10); GLUCOSE 118.2 mg/dL (74-106); POTASSIUM 3.52 mmol/L (3.5-5.1); SODIUM 130.9 mmol/L (134.5-145); TOTAL PROTEIN 5.48 g/dL (6.3-8.2)
[2022-02-01] MEDS: PROTONIX PO SCH ×2 (05:41→16:27)
[2022-02-01] MEDS: LEXAPRO PO SCH (08:26)
[2022-02-01] MEDS: NEURONTIN PO SCH ×2 (08:26→21:01)
[2022-02-01] MEDS: POTASSIUM CHL 10% ORAL SOL PO SCH ×2 (08:27→16:28)
[2022-02-01] MEDS: ELIQUIS PO SCH ×3 (08:28→21:02)
[2022-02-01] MEDS: ROCEPHIN 1 GM/50 ML D5W 1 GM/50 ML BAG IV SCH (08:31)
[2022-02-01] MEDS: DECADRON IVP SCH (10:07)
[2022-02-01] MEDS: DUONEB NEB PRN (14:12)
[2022-02-01] MEDS: HUMULIN R SUBCUT PRN ×2 (17:20→21:06)
[2022-02-01] MEDS ORDERED: SODIUM CHLORIDE 1,000 ML IV SCH (17:36)
[2022-02-01] MEDS: SODIUM CHLORIDE 1,000 ML IV SCH (18:23)
[2022-02-02] MEDS: PROTONIX PO SCH ×2 (05:41→16:35)
[2022-02-02] MEDS: SODIUM CHLORIDE 1,000 ML IV SCH (06:23)
[2022-02-02] MEDS: DECADRON IVP SCH (08:27)
[2022-02-02] MEDS: ROCEPHIN 1 GM/50 ML D5W 1 GM/50 ML BAG IV SCH (08:27)
[2022-02-02] MEDS: LEXAPRO PO SCH (08:28)
[2022-02-02] MEDS: POTASSIUM CHL 10% ORAL SOL PO SCH ×2 (08:28→16:34)
[2022-02-02] MEDS: ELIQUIS PO SCH ×2 (08:29→20:24)
[2022-02-02] MEDS: NEURONTIN PO SCH ×2 (08:30→20:23)
[2022-02-02] MEDS: DUONEB NEB PRN ×2 (09:23→19:48)
[2022-02-02] MEDS: TYLENOL PO PRN (16:35)
[2022-02-02] MEDS: HUMULIN R SUBCUT PRN (16:35)
[2022-02-03 05:33] LABS: EOSINOPHILS # (AUTO) 0.1 K/ul (0.0-0.7); EOSINOPHILS % (AUTO) 1.6 % (0.0-7.0); HEMATOCRIT 23.5 % (42.0-52.0); IMMATURE GRANULOCYTE % (AUTO) 0.3 % (0.0-5.0); MEAN CORPUSCULAR HEMOGLOBIN 31.7 pg (27.0-31.0); MEAN CORPUSCULAR VOLUME 93.3 fl (80.0-94.0); MONOCYTES # (AUTO) 0.2 K/uL (0.4-2.0); MONOCYTES % (AUTO) 7.4 (0-10); NEUTROPHILS # (AUTO) 1.8 K/ul (2.0-6.9); NEUTROPHILS % (AUTO) 57.7 % (42.2-75.2); PLATELET COUNT 87 10^3/uL (140-440); RDW COEFFICIENT OF VARIATION 15.3 % (11.6-14.8); RED BLOOD COUNT 2.52 10^6/ul (4.70-6.10); WHITE BLOOD COUNT 3.12 K/ul (4.2-10.2)
[2022-02-03] MEDS: PROTONIX PO SCH ×2 (05:43→16:18)
[2022-02-03 05:44] LABS: ALANINE AMINOTRANSFERASE 98.2 U/L (0-50); ALBUMIN 3.03 g/dL (3.5-5.0); ALKALINE PHOSPHATASE 37.5 U/L (56-119); ASPARTATE AMINO TRANSFERASE 93.1 U/L (17-59); BILIRUBIN,TOTAL 0.46 mg/dL (0.2-1.3); BLOOD UREA NITROGEN 19.4 mg/dL (9-20); CALCIUM 8.29 mg/dL (8.4-10.2); CARBON DIOXIDE 26.6 mmol/L (22-30.0); CHLORIDE 102.5 mmol/L (98-107); CREATININE 0.98 mg/dL (0.60-1.10); GLUCOSE 102.7 mg/dL (74-106); POTASSIUM 3.47 mmol/L (3.5-5.1); SODIUM 133.2 mmol/L (134.5-145); TOTAL PROTEIN 5.29 g/dL (6.3-8.2)
[2022-02-03] MEDS: NEURONTIN PO SCH ×2 (08:53→20:22)
[2022-02-03] MEDS: GLUCOPHAGE PO SCH ×2 (08:53→16:18)
[2022-02-03] MEDS: LEXAPRO PO SCH (08:53)
[2022-02-03] MEDS: ROCEPHIN 1 GM/50 ML D5W 1 GM/50 ML BAG IV SCH (08:53)
[2022-02-03] MEDS: ELIQUIS PO SCH ×2 (08:54→20:22)
[2022-02-03] MEDS: POTASSIUM CHL 10% ORAL SOL PO SCH ×2 (08:54→16:18)
[2022-02-03] MEDS ORDERED: K-DUR PO ONE (09:25)
[2022-02-03] MEDS: DECADRON IVP SCH (09:26)
--- NOTE | 2022-02-03 10:07 | ECHO2D ---
Date of Exam: 02/01/2022 Ordering Physician: DR. CHIRAG RAZA Room #: 106 Reason for Echo: SOB, COPD, BILATERAL CAROTID ARTERY OCCLUSION, PAD M-Mode Normal Adult Results LV Dimensions Normal Adult Results AoV Opening excursions >1.6 >1.6 LVEDD-base- 3.5-5.8 4.0 Ao root dimensions 2.0-3.7 3.6 LVESD-base- 3.1-4.6 L. Atrium dimensions 1.9-3.8 4.2 Post. Wall thickness 0.8-1.1 1.1 IV septum (thickness) 0.7-1.2 1.2 Post. Wall excursion 0.72-1.3 NORMAL Septal motion 0.7 Systolic motion R. Ventricular cavity 1.5-2.0 3.0 LVEF 60% 55% Paradoxical septal wall motion NORMAL 2-D : MILDLY HYPOKINETIC SEPTAL WALL--ENLARGED LEFT ATRIAL CAVITY AND RIGHT VENTRICLE CAVITIES--NORMAL VALVES--NO EFFUSION, NO THROMBUS M-MODE: MV: NORMAL AV: NORMAL TV: NORMAL PV: CHAMBER SIZE: ENLARGED LEFT ATRIAL AND RIGHT VENTRICLE CAVITIES WALL MOTION: HYPOKINETIC SEPTUM PERICARDIUM: NORMAL INTERPRETATION: 1. BORDERLINE LEFT VENTRICLE HYPERTROPHY WITH ENLARGED LEFT ATRIAL CAVITY 2. ENLARGED RIGHT VENTRICLE CAVITY 3. HYPOKINETIC SEPTAL WALL WITH EJECTION FRACTION 55% 4. NORMAL VALVES MTDD
--- NOTE | 2022-02-03 11:20 | PCM.PROG ---
Attending Provider: ATTENDING PROVIDER: Dr. CHIRAG RAZA This patient is seen with Colleen Farmer, Nurse Practitioner. DATE OF SERVICE: 02/03/22 SUBJECTIVE: This 67 year old /WHITE M was hospitalized 01/29/22. Hgb stable at 8, still very weak and dizzy on standing. Therapy provided a new walker to accommodate amputation. He will continue to work with therapy. REVIEW OF SYSTEMS: CONSTITUTIONAL: No night sweats. No fatigue, malaise, lethargy. No fever or chills. Weakness. HEENT: Eyes: No visual changes. No eye pain. No eye discharge. ENT: No runny nose. No epistaxis. No sinus pain. No odynophagia. No congestion. RESPIRATORY: No cough, no congestion. No hemoptysis. No shortness of breath. CARDIOVASCULAR: No angina symptoms. No CHF symptoms. No atypical chest pain for CAD. No palpitations. No orthopnea.. GASTROINTESTINAL: No abdominal pain. No nausea or vomiting. No diarrhea or constipation. No hematemesis. No hematochezia. GENITOURINARY: No urgency. No frequency. No dysuria. No hematuria. No obstructive symptoms. No discharge. No pain. No significant abnormal bleeding. MUSCULOSKELETAL: No musculoskeletal pain; no joint swelling. NEUROLOGICAL: Awake, alert, oriented to time, place and person. No headache. No neck pain. No syncope. No seizures. Dizziness. PSYCHIATRIC: Not anxious. No depression. No suicidal thoughts. No homicidal thoughts. SKIN: No rash. No lesions. No wounds. ENDOCRINE: No unexplained weight loss. No weight gain. HEMATOLOGIC/LYMPHATIC: Anemia. No purpura. No petechiae. No prolonged or excessive bleeding. No palpable lymph nodes. PHYSICAL EXAMINATION: GENERAL: The patient is awake, alert and oriented, lying in bed in no distress. VITAL SIGNS: Temperature 97.4 F, Pulse 66, Respiratory Rate 20, BP 150/70, Pulse Ox 100% HEENT: Head normocephalic, atraumatic. Eyes: Extraocular muscles are intact. Pupils are equal, round and reactive to light and accommodation. Ears: No lesions. Nose appeared normal. Throat: No exudate or erythema. NECK: Supple. No JVD, no carotid bruit. No lymphadenopathy or thyromegaly. LUNGS: Diminished breath sounds. Clear to auscultation. Percussion note jenny l. Chest symmetrical. HEART: S1, S2, no S3. No murmurs. No cyanosis or clubbing. No ascites. P ulses: Dorsalis pedis and posterior tibial pulses +1 to +2 both sides. ABDOMEN: Soft. Non-tender. Bowel sounds active. No CVA tenderness. No mass felt. EXTREMITIES: No edema. Full range of motion of all extremities, equal. NEUROLOGIC: No focal deficit. Cranial nerves II through XII are grossly intact. No headache. No double vision. SKIN: Not dry. Intact. Turgor-normal. LYMPHATIC: No palpable lymph nodes/no lymphedema. MUSCULOSKELETAL: Normal joints with no swelling. Muscle tone is normal. LAB REVIEW: 02/03/22 05:12 02/03/22 05:12 02/03/22 05:12: Sodium 133.2 L, Potassium 3.47 L, Chloride 102.5, Carbon Dioxide 26.6, Anion Gap 7.57, BUN 19.4, Creatinine 0.98, Estimated GFR (MDRD) 76.00, BUN/Creatinine Ratio 19.79, Glucose 102.7, Calcium 8.29 L, Total Bilirubin 0.46, AST 93.1 H, ALT 98.2 H, Alkaline Phosphatase 37.5 L, Total Protein 5.29 L, Albumin 3.03 L, Globulin 2.26, Albumin/Globulin Ratio 1.34 02/03/22 05:12: WBC 3.12 L, RBC 2.52 L, Hgb 8.0 L, Hct 23.5 L, MCV 93.3, MCH 3 1.7 H, MCHC 34.0, RDW Coeff of Delia 15.3 H, Plt Count 87 L, Immature Gran % (Auto) 0.3, Neut % (Auto) 57.7, Lymph % (Auto) 33.0, Thurston % (Auto) 7.4, Eos % (Auto) 1.6, Baso % (Auto) 0.0, Neut # (Auto) 1.8 L, Lymph # (Auto) 1.0, Thurston # (Auto) 0.2 L, Eos # (Auto) 0.1, Baso # (Auto) 0.0, Immature Gran # (Auto) 0.0 ASSESSMENT: Please see below. 1. Acute COPD exacerbation 2. Chronic anemia 3. 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 Hypokalemia 5. Severe Carotid artery occlusion. PLAN: 1. The patient continues to refused vascular and oncology. he states he is a DNR. We have discussed his prognosis at length this morning. He is agreeable to Hospice at discharge. This will likely be the best option 2. Metformin 500mg BID Plan and coordination of the patient's care discussed in the presence of [employer] Fishing Crew Member and nurse. SCRIBED BY: DEEPTI VIDAL Wet Machine Operator scribed while in presence of service performed by Dr. Raza/Colleen Farmer APRN on 02/03/22 ([id number])
--- NOTE | 2022-02-03 13:21 | PN ---
DATE OF SERVICE: 02/02/22 SUBJECTIVE: 67 year old white female hospitalized with dehydration and acute renal azotemia. The patient's kidney functions now are creatinine of 1 with BUN of 23. His overall status has improved. He says that he is eating and his appetite has improved. Feeling a lot better. Less dizziness. REVIEW OF SYSTEMS: CONSTITUTIONAL: No night sweats. No fatigue, malaise, lethargy. No fever or chills. HEENT: Eyes: No visual changes. No eye pain. No eye discharge. ENT: No runny nose. No epistaxis. No sinus pain. No sore throat. No odynophagia. No congestion. RESPIRATORY: No cough, no congestion. No hemoptysis. No shortness of breath. CARDIOVASCULAR: No angina symptoms. No CHF symptoms. No atypical chest pain for CAD. No palpitations. No PND. No orthopnea. GASTROINTESTINAL: No abdominal pain. No nausea or vomiting. No diarrhea or constipation. No hematemesis. No hematochezia. GENITOURINARY: No urgency. No frequency. No dysuria. No hematuria. No obstructive symptoms. No discharge. No pain. No significant abnormal bleeding. MUSCULOSKELETAL: No musculoskeletal pain; no joint swelling. NEUROLOGICAL: No headache. No neck pain. No syncope. No seizures. No dizziness. PSYCHIATRIC: Not anxious. No depression. No suicidal thoughts. No homicidal thoughts. SKIN: No rash. No lesions. No wounds. ENDOCRINE: No unexplained weight loss. No weight gain. HEMATOLOGIC/LYMPHATIC: No anemia. No purpura. No petechiae. No prolonged or excessive bleeding. No palpable lymph nodes. PHYSICAL EXAMINATION: VITAL SIGNS: Temperature 97.8,. pulse 70, respiratory rate 20, blood pressure 122/62 and pulse ox 99%. HEENT: Head normocephalic, atraumatic. Eyes: Extraocular muscles are intact. Pupils are equal, round and reactive to light and accommodation. Ears: No lesions. Nose appeared normal. Throat: No exudate or erythema. NECK: Supple. No JVD, no carotid bruit. No lymphadenopathy or thyromegaly. LUNGS: Decreased breath sounds but Clear to auscultation. Percussion note normal. Chest symmetrical. HEART: S1, S2, no S3. No murmurs. No cyanosis or clubbing. No ascites. Pulses: Dorsalis pedis and posterior tibial pulses +1 to +2 bilaterally. ABDOMEN: Soft. Nontender. Bowel sounds active. No CVA tenderness. No mass felt. EXTREMITIES: No edema. Full range of motion of all extremities, equal. NEUROLOGIC: No focal deficit. Cranial nerves II through XII are grossly intact. No headache. No double vision. SKIN: Not dry. Intact. Turgor - normal. LYMPHATIC: No palpable lymph nodes/no lymphedema. MUSCULOSKELETAL: Normal joints with no swelling. Muscle tone is normal. LABS: hgb 7.9, hct 22, WBC 3,100 normal differential, creatinine 1, BUN 23, potassium 3.5. ASSESSMENT: 1. Acute renal azotemia seems to have resolved 2. Dehydration, resolved 3. Anemia, seems to be stable with no evidence of GI bleed 4. The patient has possibility of lymphoma. Stomach wall is thickened along with neoplasm that needs to do EGD. PLAN: 1. We will refer the patient to GI specialist but the patient's medical condition may not be able or could be high risk for any procedures. 2. The patient declined any referral for his carotid occlusive disease. I talked to him and the daughter the day before yesterday and explained to her about all his medical conditions. Explained to her that his prognosis is poor. 3. The patient is a smoker. Counseling for smoking done. 4. The patient is intelligent. Noncompliant of all aspects of medical care. TIME SPENT: More than 30 minutes. Plan and coordination of the patient's care discussed in the presence of nurse. [facility]
[2022-02-03 15:49] LABS: OCCULT BLOOD SAMPLE 1 POSITIVE (NEGATIVE)
[2022-02-04] MEDS: PROTONIX PO SCH ×2 (05:44→17:06)
[2022-02-04 05:49] LABS: EOSINOPHILS # (AUTO) 0.1 K/ul (0.0-0.7); EOSINOPHILS % (AUTO) 2.3 % (0.0-7.0); HEMATOCRIT 22.9 % (42.0-52.0); HEMOGLOBIN 7.8 g/dl (14.0-18.0); IMMATURE GRANULOCYTE % (AUTO) 0.4 % (0.0-5.0); MEAN CORPUSCULAR HEMOGLOBIN 32.1 pg (27.0-31.0); MEAN CORPUSCULAR HGB CONC 34.1 (31.8-35.4); MEAN CORPUSCULAR VOLUME 94.2 fl (80.0-94.0); MONOCYTES # (AUTO) 0.2 K/uL (0.4-2.0); MONOCYTES % (AUTO) 8.2 (0-10); NEUTROPHILS # (AUTO) 1.3 K/ul (2.0-6.9); NEUTROPHILS % (AUTO) 52.1 % (42.2-75.2); PLATELET COUNT 95 10^3/uL (140-440); RED BLOOD COUNT 2.43 10^6/ul (4.70-6.10); WHITE BLOOD COUNT 2.57 K/ul (4.2-10.2)
[2022-02-04 05:59] LABS: ALANINE AMINOTRANSFERASE 122.9 U/L (0-50); ALBUMIN 2.94 g/dL (3.5-5.0); ALKALINE PHOSPHATASE 40.7 U/L (56-119); ASPARTATE AMINO TRANSFERASE 109.5 U/L (17-59); BILIRUBIN,TOTAL 0.52 mg/dL (0.2-1.3); BLOOD UREA NITROGEN 15.2 mg/dL (9-20); CALCIUM 8.02 mg/dL (8.4-10.2); CARBON DIOXIDE 26.6 mmol/L (22-30.0); CHLORIDE 103.2 mmol/L (98-107); CREATININE 0.94 mg/dL (0.60-1.10); GLUCOSE 89.1 mg/dL (74-106); POTASSIUM 3.89 mmol/L (3.5-5.1); SODIUM 134.8 mmol/L (134.5-145); TOTAL PROTEIN 5.21 g/dL (6.3-8.2)
[2022-02-04 06:08] LABS: OCCULT BLOOD SAMPLE 2 NO SPECIMEN RECEIVED (NEGATIVE); OCCULT BLOOD SAMPLE 3 NO SPECIMEN RECEIVED (NEGATIVE)
[2022-02-04] MEDS: LEXAPRO PO SCH (09:18)
[2022-02-04] MEDS: NEURONTIN PO SCH ×2 (09:18→20:50)
[2022-02-04] MEDS: GLUCOPHAGE PO SCH ×2 (09:18→17:07)
[2022-02-04] MEDS: ELIQUIS PO SCH (09:19)
[2022-02-04] MEDS: POTASSIUM CHL 10% ORAL SOL PO SCH ×2 (09:19→17:09)
[2022-02-04] MEDS: DECADRON IVP SCH (09:43)
--- NOTE | 2022-02-04 10:46 | PCM.PROG ---
Attending Provider: ATTENDING PROVIDER: Dr. CHIRAG JUDGE This patient is seen with Colleen Farmer, Nurse Practitioner. DATE OF SERVICE: 02/04/22 SUBJECTIVE: This 67 year old /WHITE M was hospitalized 01/29/22. Hgb is down to 7.8, still dizzy. New walker provided by therapy which helped. Yesterday I spoke with the patient about going home with Hospice, he did not want any referrals. Ex- is present and would like him to see GI and Hematology/Oncology. We have discussed that the Patient and family need to be in agreement with treatment plan. REVIEW OF SYSTEMS: CONSTITUTIONAL: No night sweats. No fatigue, malaise, lethargy. No fever or chills. Weakness. HEENT: Eyes: No visual changes. No eye pain. No eye discharge. ENT: No runny nose. No epistaxis. No sinus pain. No odynophagia. No congestion. RESPIRATORY: No cough, no congestion. No hemoptysis. Shortness of breath. CARDIOVASCULAR: No angina symptoms. No CHF symptoms. No atypical chest pain for CAD. No palpitations. No orthopnea.. GASTROINTESTINAL: No abdominal pain. No nausea or vomiting. No diarrhea or constipation. No hematemesis. No hematochezia. GENITOURINARY: No urgency. No frequency. No dysuria. No hematuria. No obstructive symptoms. No discharge. No pain. No significant abnormal bleeding. MUSCULOSKELETAL: No musculoskeletal pain; no joint swelling. NEUROLOGICAL: Awake, alert, oriented to time, place and person. No headache. No neck pain. No syncope. No seizures. Dizziness. PSYCHIATRIC: Not anxious. No depression. No suicidal thoughts. No homicidal thoughts. SKIN: No rash. No lesions. No wounds. ENDOCRINE: No unexplained weight loss. No weight gain. HEMATOLOGIC/LYMPHATIC: Anemia. No purpura. No petechiae. No prolonged or excessive bleeding. No palpable lymph nodes. PHYSICAL EXAMINATION: GENERAL: The patient is awake, alert and oriented, lying in bed in no distress. VITAL SIGNS: Temperature 98.4 F, Pulse 68, Respiratory Rate 18, BP 140/68, Pulse Ox 99% HEENT: Head normocephalic, atraumatic. Eyes: Extraocular muscles are intact. Pupils are equal, round and reactive to light and accommodation. Ears: No lesions. Nose appeared normal. Throat: No exudate or erythema. NECK: Supple. No JVD, no carotid bruit. No lymphadenopathy or thyromegaly. LUNGS: Diminished breath sounds. Clear to auscultation. Percussion note normal. Chest symmetrical. HEART: S1, S2, no S3. No murmurs. No cyanosis or clubbing. No ascites. Pulses: Dorsalis pedis and posterior tibial pulses +1 to +2 both sides. ABDOMEN: Soft. Non-tender. Bowel sounds active. No CVA tenderness. No mass felt. EXTREMITIES: No edema. Full range of motion of all extremities, equal. NEUROLOGIC: No focal deficit. Cranial nerves II through XII are grossly intact. No headache. No double vision. SKIN: Not dry. Intact. Turgor-normal. Pallor. LYMPHATIC: No palpable lymph nodes/no lymphedema. MUSCULOSKELETAL: Normal joints with no swelling. Muscle tone is normal. LAB REVIEW: 02/04/22 05:15 02/04/22 05:15 02/04/22 05:15: Sodium 134.8, Potassium 3.89, Chloride 103.2, Carbon Dioxide 26.6, Anion Gap 8.89, BUN 15.2, Creatinine 0.94, Estimated GFR (MDRD) 80.00, BUN/Creatinine Ratio 16.17, Glucose 89.1, Calcium 8.02 L, Total Bilirubin 0.52, AST 109.5 H, ALT 122.9 H, Alkaline Phosphatase 40.7 L, Total Protein 5.21 L, Albumin 2.94 L, Globulin 2.27, Albumin/Globulin Ratio 1.29 02/04/22 05:15: WBC 2.57 L, RBC 2.43 L, Hgb 7.8 L, Hct 22.9 L, MCV 94.2 H, MCH 32.1 H, MCHC 34.1, RDW Coeff of Delia 15.0 H, Plt Count 95 L, Immature Gran % (Auto) 0.4, Neut % (Auto) 52.1, Lymph % (Auto) 37.0, Upson % (Auto) 8.2, Eos % (Auto) 2.3, Baso % (Auto) 0.0, Neut # (Auto) 1.3 L, Lymph # (Auto) 1.0, Upson # (Auto) 0.2 L, Eos # (Auto) 0.1, Baso # (Auto) 0.0, Immature Gran # (Auto) 0.0 02/03/22 15:37: Stl Occult Blood (IFOB) Positive, Stool Occult Blood #2 No specimen received, Stool Occult Blood #3 No specimen received ASSESSMENT: Please see below. 1. Symptomatic anemia causing shortness of breath and dizziness 2. Lymphoma possible causing anemia PLAN: 1. We will make appointment with Dr. Harris 2. The patient already has appointment with Dr. Valencia 3. At this point the patient has been transfused two units and blood count still dropping. Unable to be by himself. Anemia is causing shortness of breath. He is having some confusion and altered mental status since being here. Plan and coordination of the patient's care discussed in the presence of Printing Pressman and nurse. SCRIBED BY: DEEPTI VIDAL Peer Specialist scribed while in presence of service performed by Dr. Judge/Colleen Farmer APRN on 02/04/22 ([id number])
--- NOTE | 2022-02-04 11:13 | PN ---
DATE OF SERVICE: 02/03/22 SUBJECTIVE: The patient was seen and examined with the Nurse Practitioner. The patient's has accepted Hospice but the family I don't know about. His and daughter don't accept that. In any case the patient is going to be step up to see [facility] and hematology/oncologist. Abnormal finding on CT scan which showed stomach wall to be thickened with possibility of lymphoma on neoplasm. The patient has severe anemia, chronic. He is being followed by Dr. Harris but he is noncompliant on followups. TIME SPENT: More than 30 minutes. Plan and coordination of the patient's care discussed in the presence of nurse. BERTA
[2022-02-04] MEDS: DUONEB NEB PRN (13:15)
--- NOTE | 2022-02-04 13:33 | PN ---
DATE OF SERVICE: 02/04/22 SUBJECTIVE: The patient was seen and examined with the Nurse Practitioner. The patient's condition is stable. We are going to give him one more unit of packed red cells because he is feeling fatigued, tired. He is still thinking about having Hospice. Family doesn't seem to be interested in it but in any case it is the patient's decision. TIME SPENT: More than 30 minutes. Plan and coordination of the patient's care discussed in the presence of nurse. BERTA
[2022-02-04 19:29] LABS: HEMATOCRIT 26.8 % (42.0-52.0)
[2022-02-04] MEDS: HUMULIN R SUBCUT PRN (20:50)
[2022-02-05 05:33] LABS: BASOPHILS % (AUTO) 0.4 % (0.0-3.0); EOSINOPHILS # (AUTO) 0.1 K/ul (0.0-0.7); EOSINOPHILS % (AUTO) 2.2 % (0.0-7.0); HEMATOCRIT 26.5 % (42.0-52.0); HEMOGLOBIN 8.8 g/dl (14.0-18.0); IMMATURE GRANULOCYTE % (AUTO) 0.4 % (0.0-5.0); LYMPHOCYTES # (AUTO) 1.1 K/uL (0.60-3.4); LYMPHOCYTES % (AUTO) 40.1 (10.0-50.0); MEAN CORPUSCULAR HEMOGLOBIN 30.9 pg (27.0-31.0); MEAN CORPUSCULAR HGB CONC 33.2 (31.8-35.4); MONOCYTES # (AUTO) 0.3 K/uL (0.4-2.0); MONOCYTES % (AUTO) 9.4 (0-10); NEUTROPHILS # (AUTO) 1.3 K/ul (2.0-6.9); NEUTROPHILS % (AUTO) 47.5 % (42.2-75.2); PLATELET COUNT 96 10^3/uL (140-440); RDW COEFFICIENT OF VARIATION 15.1 % (11.6-14.8); RED BLOOD COUNT 2.85 10^6/ul (4.70-6.10); WHITE BLOOD COUNT 2.77 K/ul (4.2-10.2)
[2022-02-05] MEDS: PROTONIX PO SCH ×2 (05:39→18:01)
[2022-02-05 05:48] LABS: ALANINE AMINOTRANSFERASE 117.5 U/L (0-50); ASPARTATE AMINO TRANSFERASE 86.1 U/L (17-59); BILIRUBIN,TOTAL 0.62 mg/dL (0.2-1.3); BLOOD UREA NITROGEN 14.4 mg/dL (9-20); CALCIUM 7.98 mg/dL (8.4-10.2); CARBON DIOXIDE 28.1 mmol/L (22-30.0); CHLORIDE 101.6 mmol/L (98-107); CREATININE 0.99 mg/dL (0.60-1.10); GLUCOSE 89.6 mg/dL (74-106); POTASSIUM 3.84 mmol/L (3.5-5.1); SODIUM 134.7 mmol/L (134.5-145); TOTAL PROTEIN 5.35 g/dL (6.3-8.2)
[2022-02-05] MEDS: POTASSIUM CHL 10% ORAL SOL PO SCH ×2 (08:59→18:01)
[2022-02-05] MEDS: XARELTO PO SCH ×2 (09:01→21:18)
[2022-02-05] MEDS: NEURONTIN PO SCH ×2 (09:17→21:18)
[2022-02-05] MEDS: GLUCOPHAGE PO SCH ×2 (09:18→18:01)
[2022-02-05] MEDS: LEXAPRO PO SCH (09:18)
[2022-02-05] MEDS: DECADRON IVP SCH (09:18)
[2022-02-05] MEDS: DUONEB NEB PRN (09:27)
[2022-02-06 05:42] LABS: BASOPHILS % (AUTO) 0.3 % (0.0-3.0); EOSINOPHILS # (AUTO) 0.1 K/ul (0.0-0.7); EOSINOPHILS % (AUTO) 1.9 % (0.0-7.0); HEMATOCRIT 25.4 % (42.0-52.0); HEMOGLOBIN 8.6 g/dl (14.0-18.0); IMMATURE GRANULOCYTE % (AUTO) 0.3 % (0.0-5.0); LYMPHOCYTES # (AUTO) 1.1 K/uL (0.60-3.4); LYMPHOCYTES % (AUTO) 34.4 (10.0-50.0); MEAN CORPUSCULAR HEMOGLOBIN 31.3 pg (27.0-31.0); MEAN CORPUSCULAR HGB CONC 33.9 (31.8-35.4); MEAN CORPUSCULAR VOLUME 92.4 fl (80.0-94.0); MONOCYTES # (AUTO) 0.3 K/uL (0.4-2.0); MONOCYTES % (AUTO) 8.4 (0-10); NEUTROPHILS # (AUTO) 1.7 K/ul (2.0-6.9); NEUTROPHILS % (AUTO) 54.7 % (42.2-75.2); PLATELET COUNT 91 10^3/uL (140-440); RDW COEFFICIENT OF VARIATION 14.8 % (11.6-14.8); RED BLOOD COUNT 2.75 10^6/ul (4.70-6.10); WHITE BLOOD COUNT 3.08 K/ul (4.2-10.2)
[2022-02-06] MEDS: PROTONIX PO SCH ×2 (05:47→17:50)
[2022-02-06 06:00] LABS: ALANINE AMINOTRANSFERASE 100.8 U/L (0-50); ALBUMIN 2.97 g/dL (3.5-5.0); ALKALINE PHOSPHATASE 40.1 U/L (56-119); ASPARTATE AMINO TRANSFERASE 64.6 U/L (17-59); BILIRUBIN,TOTAL 0.45 mg/dL (0.2-1.3); BLOOD UREA NITROGEN 16.3 mg/dL (9-20); CALCIUM 8.13 mg/dL (8.4-10.2); CARBON DIOXIDE 27.1 mmol/L (22-30.0); CHLORIDE 101.4 mmol/L (98-107); CREATININE 1.04 mg/dL (0.60-1.10); GLUCOSE 86.5 mg/dL (74-106); POTASSIUM 3.54 mmol/L (3.5-5.1); TOTAL PROTEIN 5.31 g/dL (6.3-8.2)
[2022-02-06] MEDS: PREDNISONE PO SCH (10:41)
[2022-02-06] MEDS: LIPITOR PO SCH (10:42)
[2022-02-06] MEDS: GLUCOPHAGE PO SCH ×2 (10:42→17:50)
[2022-02-06] MEDS: NEURONTIN PO SCH ×2 (10:43→20:57)
[2022-02-06] MEDS: LEXAPRO PO SCH (10:44)
--- NOTE | 2022-02-06 10:49 | PCM.PROG ---
Attending Provider: ATTENDING PROVIDER: Dr. CHIRAG RAZA This patient is seen with Colleen Farmer, Nurse Practitioner. DATE OF SERVICE: 02/06/22 SUBJECTIVE: This 67 year old /WHITE M was hospitalized 01/29/22. HGb is stable. Blood pressure is stable. Has had some constipation issues. Still with si gnificant dizziness. REVIEW OF SYSTEMS: CONSTITUTIONAL: No night sweats. No fatigue, malaise, lethargy. No fever or chills. Weakness. HEENT: Eyes: No visual changes. No eye pain. No eye discharge. ENT: No runny nose. No epistaxis. No sinus pain. No odynophagia. No congestion. RESPIRATORY: No cough, no congestion. No hemoptysis. No shortness of breath. CARDIOVASCULAR: No angina symptoms. No CHF symptoms. No atypical chest pain for CAD. No palpitations. No orthopnea.. GASTROINTESTINAL: No abdominal pain. No nausea or vomiting. No diarrhea or constipation. No hematemesis. No hematochezia. GENITOURINARY: No urgency. No frequency. No dysuria. No hematuria. No obstruct zach symptoms. No discharge. No pain. No significant abnormal bleeding. MUSCULOSKELETAL: No musculoskeletal pain; no joint swelling. NEUROLOGICAL: Awake, alert, oriented to time, place and person. No headache. No neck pain. No syncope. No seizures. Dizziness. PSYCHIATRIC: Not anxious. No depression. No suicidal thoughts. No homicidal thoughts. SKIN: No rash. No lesions. No wounds. ENDOCRINE: No unexplained weight loss. No weight gain. HEMATOLOGIC/LYMPHATIC: Anemia. No purpura. No petechiae. No prolonged or excessive bleeding. No palpable lymph nodes. PHYSICAL EXAMINATION: GENERAL: The patient is awake, alert and oriented, sitting in bed in no distress. VITAL SIGNS: Temperature 98.1 F, Pulse 68, Respiratory Rate 15, BP 91/55, Pulse Ox 97% HEENT: Head normocephalic, atraumatic. Eyes: Extraocular muscles are intact. Pupils are equal, round and reactive to light and accommodation. Ears: No lesions. Nose appeared normal. Throat: No exudate or erythema. NECK: Supple. No JVD, no carotid bruit. No lymphadenopathy or thyromegaly. LUNGS: Diminished breath sounds. Clear to auscultation. Percussion note normal. Chest symmetrical. HEART: S1, S2, no S3. No murmurs. No cyanosis or clubbing. No ascites. Pulses: Dorsalis pedis and posterior tibial pulses +1 to +2 both sides. ABDOMEN: Soft. Non-tender. Bowel sounds active. No CVA tenderness. No mass felt. EXTREMITIES: No edema. Full range of motion of all extremities, equal. NEUROLOGIC: No focal deficit. Cranial nerves II through XII are grossly intact. No headache. No double vision. SKIN: Not dry. Intact. Turgor-normal. Pallor. LYMPHATIC: No palpable lymph nodes/no lymphedema. MUSCULOSKELETAL: Normal joints with no swelling. Muscle tone is normal. LAB REVIEW: 02/06/22 05:03 02/06/22 05:03 02/06/22 05:03: Sodium 134.0 L, Potassium 3.54, Chloride 101.4, Carbon Dioxide 27.1, Anion Gap 9.04, BUN 16.3, Creatinine 1.04, Estimated GFR (MDRD) 71.00, BUN/Creatinine Ratio 15.67, Glucose 86.5, Calcium 8.13 L, Total Bilirubin 0.45, AST 64.6 H, ALT 100.8 H, Alkaline Phosphatase 40.1 L, Total Protein 5.31 L, Albumin 2.97 L, Globulin 2.34, Albumin/Globulin Ratio 1.26 02/06/22 05:03: WBC 3.08 L, RBC 2.75 L, Hgb 8.6 L, Hct 25.4 L, MCV 92.4, MCH 31.3 H, MCHC 33.9, RDW Coeff of Delia 14.8, Plt Count 91 L, Immature Gran % (Auto) 0.3, Neut % (Auto) 54.7, Lymph % (Auto) 34.4, Hall % (Auto) 8.4, Eos % (Auto) 1.9, Baso % (Auto) 0.3, Neut # (Auto) 1.7 L, Lymph # (Auto) 1.1, Hall # (Auto) 0.3 L, Eos # (Auto) 0.1, Baso # (Auto) 0.0, Immature Gran # (Auto) 0.0 ASSESSMENT: Please see below. 1. Anemia 2. Hypotension 3. Lymphoma 4. Bilateral carotid occlusion 5. Severe PAD 6. COPD PLAN: 1. Continue to monitor hgb Plan and coordination of the patient's care discussed in the presence of Ball Truing Machine Operator and nurse. SCRIBED BY: DEEPTI VIDAL Safety Consultant scribed while in presence of service performed by Dr. Raza/Colleen Farmer APRN on 02/06/22 ([id number])
[2022-02-06] MEDS: XARELTO PO SCH ×2 (10:50→20:57)
[2022-02-06] MEDS: POTASSIUM CHL 10% ORAL SOL PO SCH ×2 (10:55→17:50)
[2022-02-06] MEDS: MIRALAX PO SCH (10:57)
[2022-02-07 05:36] LABS: BASOPHILS % (AUTO) 0.6 % (0.0-3.0); EOSINOPHILS # (AUTO) 0.1 K/ul (0.0-0.7); HEMATOCRIT 27.3 % (42.0-52.0); HEMOGLOBIN 9.2 g/dl (14.0-18.0); IMMATURE GRANULOCYTE % (AUTO) 0.3 % (0.0-5.0); LYMPHOCYTES # (AUTO) 1.1 K/uL (0.60-3.4); LYMPHOCYTES % (AUTO) 30.8 (10.0-50.0); MEAN CORPUSCULAR HEMOGLOBIN 31.6 pg (27.0-31.0); MEAN CORPUSCULAR HGB CONC 33.7 (31.8-35.4); MEAN CORPUSCULAR VOLUME 93.8 fl (80.0-94.0); MONOCYTES # (AUTO) 0.2 K/uL (0.4-2.0); MONOCYTES % (AUTO) 5.6 (0-10); NEUTROPHILS # (AUTO) 2.2 K/ul (2.0-6.9); NEUTROPHILS % (AUTO) 60.7 % (42.2-75.2); PLATELET COUNT 103 10^3/uL (140-440); RDW COEFFICIENT OF VARIATION 14.7 % (11.6-14.8); RED BLOOD COUNT 2.91 10^6/ul (4.70-6.10); WHITE BLOOD COUNT 3.54 K/ul (4.2-10.2)
[2022-02-07 05:48] LABS: ALANINE AMINOTRANSFERASE 99.4 U/L (0-50); ALBUMIN 3.18 g/dL (3.5-5.0); ALKALINE PHOSPHATASE 47.8 U/L (56-119); BILIRUBIN,TOTAL 0.32 mg/dL (0.2-1.3); BLOOD UREA NITROGEN 17.8 mg/dL (9-20); CALCIUM 8.23 mg/dL (8.4-10.2); CHLORIDE 102.2 mmol/L (98-107); CREATININE 1.03 mg/dL (0.60-1.10); GLUCOSE 88.6 mg/dL (74-106); POTASSIUM 3.86 mmol/L (3.5-5.1); TOTAL PROTEIN 5.66 g/dL (6.3-8.2)
[2022-02-07] MEDS: PROTONIX PO SCH ×2 (06:14→17:27)
[2022-02-07] MEDS: XARELTO PO SCH ×2 (09:34→20:44)
[2022-02-07] MEDS: LIPITOR PO SCH (09:34)
[2022-02-07] MEDS: PREDNISONE PO SCH (09:35)
[2022-02-07] MEDS: MIRALAX PO SCH (09:36)
[2022-02-07] MEDS: GLUCOPHAGE PO SCH ×2 (09:36→17:27)
[2022-02-07] MEDS: NEURONTIN PO SCH ×2 (09:36→20:43)
[2022-02-07] MEDS: LEXAPRO PO SCH (09:36)
[2022-02-07] MEDS: POTASSIUM CHL 10% ORAL SOL PO SCH (09:36)
[2022-02-07] MEDS ORDERED: K-DUR PO SCH (10:00)
[2022-02-07] MEDS: K-DUR PO SCH ×2 (10:11→17:28)
[2022-02-07] MEDS: TYLENOL PO PRN (10:11)
--- NOTE | 2022-02-07 10:18 | PCM.PROG ---
Attending Provider: ATTENDING PROVIDER: Dr. CHIRAG RAZA DATE OF SERVICE: 02/07/22 SUBJECTIVE: This 67 year old /WHITE M was hospitalized 01/29/22 with dehydration and COPD exacerbation. The patient's other problems is continued smoking with COPD. He also has carotid occlusive disease bilaterally with common carotid artery blockage, one vertebral blockage. He also has peripheral arterial disease . The patient has thickening of the stomach wall with possible lymphoma with chronic anemia. The patient is going to [facility] in [place], waiting on insurance clearance. Family and patient have decided against Hospice. REVIEW OF SYSTEMS: CONSTITUTIONAL: No night sweats. No fatigue, malaise, lethargy. No fever or chills. HEENT: Eyes: No visual changes. No eye pain. No eye discharge. ENT: No runny nose. No epistaxis. No sinus pain. No odynophagia. No congestion. RESPIRATORY: No cough, no congestion. No hemoptysis. No shortness of breath. CARDIOVASCULAR: No angina symptoms. No CHF symptoms. No atypical chest pain for CAD. No palpitations. No orthopnea.. GASTROINTESTINAL: No abdominal pain. No nausea or vomiting. No diarrhea or constipation. No hematemesis. No hematochezia. GENITOURINARY: No urgency. No frequency. No dysuria. No hematuria. No obstructive symptoms. No discharge. No pain. No significant abnormal bleeding. MUSCULOSKELETAL: No musculoskeletal pain; no joint swelling. NEUROLOGICAL: Awake, alert, oriented to time, place and person. No headache. No neck pain. No syncope. No seizures. Mild dizziness. PSYCHIATRIC: Not anxious. No depression. No suicidal thoughts. No homicidal thoughts. SKIN: No rash. No lesions. No wounds. ENDOCRINE: No unexplained weight loss. No weight gain. HEMATOLOGIC/LYMPHATIC: No anemia. No purpura. No petechiae. No prolonged or excessive bleeding. No palpable lymph nodes. PHYSICAL EXAMINATION: GENERAL: The patient is awake, alert and oriented, lying in bed in no distress. VITAL SIGNS: Temperature 97.9 F, Pulse 70, Respiratory Rate 18, BP 141/75, Pulse Ox 97% HEENT: Head normocephalic, atraumatic. Eyes: Extraocular muscles are intact. Pupils are equal, round and reactive to light and accommodation. Ears: No lesions. Nose appeared normal. Throat: No exudate or erythema. NECK: Supple. No JVD, no carotid bruit. No lymphadenopathy or thyromegaly. LUNGS: Clear to auscultation. Percussion note normal. Chest symmetrical. HEART: S1, S2, no S3. No murmurs. No cyanosis or clubbing. No ascites. Pulses: Dorsalis pedis and posterior tibial pulses +1 to +2 both sides. ABDOMEN: Soft. Non-tender. Bowel sounds active. No CVA tenderness. No mass felt. EXTREMITIES: No edema. Full range of motion of all extremities, equal. NEUROLOGIC: No focal deficit. Cranial nerves II through XII are grossly intact. No headache, no double vision or headache. SKIN: Warm and dry. Intact. Turgor-normal. LYMPHATIC: No palpable lymph nodes/no lymphedema. MUSCULOSKELETAL: Normal joints with no swelling. Muscle tone is normal. LAB REVIEW: 02/07/22 05:30 02/07/22 05:08 02/07/22 05:30: WBC 3.54 L, RBC 2.91 L, Hgb 9.2 L, Hct 27.3 L, MCV 93.8, MCH 31.6 H, MCHC 33.7, RDW Coeff of Delia 14.7, Plt Count 103 L, Immature Gran % (Auto) 0.3, Neut % (Auto) 60.7, Lymph % (Auto) 30.8, Dewitt % (Auto) 5.6, Eos % (Auto) 2.0, Baso % (Auto) 0.6, Neut # (Auto) 2.2, Lymph # (Auto) 1.1, Dewitt # (Auto) 0.2 L, Eos # (Auto) 0.1, Baso # (Auto) 0.0, Immature Gran # (Auto) 0.0 02/07/22 05:08: Sodium 136.0, Potassium 3.86, Chloride 102.2, Carbon Dioxide 28.0, Anion Gap 9.66, BUN 17.8, Creatinine 1.03, Estimated GFR (MDRD) 72.00, BUN/Creatinine Ratio 17.28, Glucose 88.6, Calcium 8.23 L, Total Bilirubin 0.32, AST 68.0 H, ALT 99.4 H, Alkaline Phosphatase 47.8 L, Total Protein 5.66 L, Albumin 3.18 L, Globulin 2.48, Albumin/Globulin Ratio 1.28 ASSESSMENT: Please see below. 1. Anemia 2. Hypotension 3. Lymphoma 4. Bilateral carotid occlusion 5. Severe PAD 6. COPD PLAN: 1. The patient is to be seen by Gastroenteritis, Informatics Scientist/Oncologist. Plan and coordination of the patient's care discussed in the presence of Production Material Handler and nurse. CONDITION: Stable PROGNOSIS: Poor SCRIBED BY: Lillie CARVER scribed while in presence of service performed by Dr. CHIRAG RAZA on 02/07/22 ([id number])
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
--- NOTE | 2022-02-07 11:47 | PN ---
DATE OF SERVICE: 02/06/22 SUBJECTIVE: The patient was seen and examined with the Nurse Practitioner. The patient is going to be discharged to one of the places which is more or less a rehab type of center to the [facility]. In any case the patient's prognosis is poor considering his multiple medical problems. Always changing what they want to do everyday. Usually goes along with it but his ideas are different. The patient is DNR. TIME SPENT: More than 30 minutes. Plan and coordination of the patient's care discussed in the presence of nurse. BERTA
--- NOTE | 2022-02-07 13:33 | PN ---
DATE OF SERVICE: 02/05/22 SUBJECTIVE: 67 year old white male hospitalized with dehydration, renal azotemia and COPD exacerbation. The patient's condition has improved. His appetite has improved and he is gaining weight. The ex- is present in the room and agreed to see Hospice when he is discharged. The patient is going to be seen by clinical staff anesthesiologist and Dr. Harris registered nurse bone marrow transplant. REVIEW OF SYSTEMS: CONSTITUTIONAL: No night sweats. No fatigue, malaise, lethargy. No fever or chills. HEENT: Eyes: No visual changes. No eye pain. No eye discharge. ENT: No runny nose. No epistaxis. No sinus pain. No sore throat. No odynophagia. No congestion. RESPIRATORY: No cough, no congestion. No hemoptysis. No shortness of breath. CARDIOVASCULAR: No angina symptoms. No CHF symptoms. No atypical chest pain for CAD. No palpitations. No PND. No orthopnea. GASTROINTESTINAL: No abdominal pain. No nausea or vomiting. No diarrhea or constipation. No hematemesis. No hematochezia. GENITOURINARY: No urgency. No frequency. No dysuria. No hematuria. No obstructive symptoms. No discharge. No pain. No significant abnormal bleeding. MUSCULOSKELETAL: No musculoskeletal pain; no joint swelling. NEUROLOGICAL: No headache. No neck pain. No syncope. No seizures. less dizziness. PSYCHIATRIC: Not anxious. No depression. No suicidal thoughts. No homicidal thoughts. SKIN: No rash. No lesions. No wounds. ENDOCRINE: No unexplained weight loss. No weight gain. HEMATOLOGIC/LYMPHATIC: No anemia. No purpura. No petechiae. No prolonged or excessive bleeding. No palpable lymph nodes. PHYSICAL EXAMINATION: VITAL SIGNS: Temperature 98.1, pulse 65, respiratory rate 18, blood pressure 150/75 and pulse ox 100% on room air. HEENT: Head normocephalic, atraumatic. Eyes: Extraocular muscles are intact. Pupils are equal, round and reactive to light and accommodation. Ears: No lesions. Nose appeared normal. Throat: No exudate or erythema. NECK: Supple. No JVD, no carotid bruit. No lymphadenopathy or thyromegaly. LUNGS: Decreased breath sounds but clear to auscultation. Percussion note normal. Chest symmetrical. HEART: S1, S2, no S3. No murmurs. No cyanosis or clubbing. No ascites. Pulses: Feeble pulses. ABDOMEN: Soft. Nontender. Bowel sounds active. No CVA tenderness. No mass felt. EXTREMITIES: No edema. Full range of motion of all extremities, equal. NEUROLOGIC: No focal deficit. Cranial nerves II through XII are grossly intact. No headache. No double vision. SKIN: Not dry. Intact. Turgor - normal. LYMPHATIC: No palpable lymph nodes/no lymphedema. MUSCULOSKELETAL: Normal joints with no swelling. Muscle tone is normal. LABS: hgb 8.8, hct 26, WBC 2,700 normal differential, creatinine 0.9, BUN 14, potassium 3.8 ASSESSMENT: 1. Acute renal azotemia, resolved 2. Exacerbation of COPD under control 3. Chronic lung disease 4. Possibility of lymphoma with thickening of the stomach wall 5. Chronic anemia, multifactorial 6. Peripheral arterial disease completely occluded one of the vertebral arteries and both common carotid arteries. 7. History of smoking PLAN: 1. The patient's prognosis is poor. He is being referred to the consultants mentioned above. TIME SPENT: More than 30 minutes. Plan and coordination of the patient's care discussed in the presence of nurse. BERTA
[2022-02-07] MEDS ORDERED: NORCO 10-325 PO PRN (15:22)
[2022-02-08 05:17] LABS: BASOPHILS % (AUTO) 0.5 % (0.0-3.0); EOSINOPHILS # (AUTO) 0.1 K/ul (0.0-0.7); EOSINOPHILS % (AUTO) 2.1 % (0.0-7.0); IMMATURE GRANULOCYTE % (AUTO) 0.2 % (0.0-5.0); LYMPHOCYTES # (AUTO) 1.2 K/uL (0.60-3.4); LYMPHOCYTES % (AUTO) 27.9 (10.0-50.0); MEAN CORPUSCULAR HEMOGLOBIN 31.1 pg (27.0-31.0); MEAN CORPUSCULAR HGB CONC 33.3 (31.8-35.4); MEAN CORPUSCULAR VOLUME 93.4 fl (80.0-94.0); MONOCYTES # (AUTO) 0.3 K/uL (0.4-2.0); MONOCYTES % (AUTO) 6.6 (0-10); NEUTROPHILS # (AUTO) 2.7 K/ul (2.0-6.9); NEUTROPHILS % (AUTO) 62.7 % (42.2-75.2); PLATELET COUNT 99 10^3/uL (140-440); RDW COEFFICIENT OF VARIATION 14.6 % (11.6-14.8); RED BLOOD COUNT 2.89 10^6/ul (4.70-6.10); WHITE BLOOD COUNT 4.27 K/ul (4.2-10.2)
[2022-02-08 05:30] LABS: ALBUMIN 3.15 g/dL (3.5-5.0); ALKALINE PHOSPHATASE 48.5 U/L (56-119); ASPARTATE AMINO TRANSFERASE 65.4 U/L (17-59); BILIRUBIN,TOTAL 0.46 mg/dL (0.2-1.3); BLOOD UREA NITROGEN 19.1 mg/dL (9-20); CALCIUM 8.45 mg/dL (8.4-10.2); CARBON DIOXIDE 26.6 mmol/L (22-30.0); CREATININE 0.95 mg/dL (0.60-1.10); GLUCOSE 85.8 mg/dL (74-106); POTASSIUM 4.11 mmol/L (3.5-5.1); SODIUM 134.7 mmol/L (134.5-145); TOTAL PROTEIN 5.66 g/dL (6.3-8.2)
[2022-02-08] MEDS: PROTONIX PO SCH ×2 (05:58→17:14)
[2022-02-08] MEDS: NEURONTIN PO SCH ×2 (08:57→20:32)
[2022-02-08] MEDS: LEXAPRO PO SCH (08:58)
[2022-02-08] MEDS: LIPITOR PO SCH (08:58)
[2022-02-08] MEDS: XARELTO PO SCH ×2 (08:58→20:30)
[2022-02-08] MEDS: K-DUR PO SCH ×2 (08:58→17:14)
[2022-02-08] MEDS: MIRALAX PO SCH (08:59)
[2022-02-08] MEDS: GLUCOPHAGE PO SCH ×2 (08:59→17:14)
[2022-02-08] MEDS: PREDNISONE PO SCH (08:59)
[2022-02-08] MEDS: TYLENOL PO PRN (14:33)
[2022-02-08] MEDS ORDERED: SODIUM CHLORIDE 1,000 ML IV ONE (17:16)
[2022-02-08] MEDS: HUMULIN R SUBCUT PRN (20:32)
[2022-02-09 05:40] LABS: BASOPHILS % (AUTO) 0.5 % (0.0-3.0); EOSINOPHILS # (AUTO) 0.1 K/ul (0.0-0.7); EOSINOPHILS % (AUTO) 2.3 % (0.0-7.0); HEMATOCRIT 26.5 % (42.0-52.0); HEMOGLOBIN 8.7 g/dl (14.0-18.0); IMMATURE GRANULOCYTE % (AUTO) 0.3 % (0.0-5.0); LYMPHOCYTES # (AUTO) 1.2 K/uL (0.60-3.4); LYMPHOCYTES % (AUTO) 30.8 (10.0-50.0); MEAN CORPUSCULAR HEMOGLOBIN 31.2 pg (27.0-31.0); MEAN CORPUSCULAR HGB CONC 32.8 (31.8-35.4); MONOCYTES # (AUTO) 0.3 K/uL (0.4-2.0); MONOCYTES % (AUTO) 7.7 (0-10); NEUTROPHILS # (AUTO) 2.3 K/ul (2.0-6.9); NEUTROPHILS % (AUTO) 58.4 % (42.2-75.2); PLATELET COUNT 80 10^3/uL (140-440); RDW COEFFICIENT OF VARIATION 14.6 % (11.6-14.8); RED BLOOD COUNT 2.79 10^6/ul (4.70-6.10)
[2022-02-09 05:51] LABS: ALBUMIN 3.15 g/dL (3.5-5.0); ALKALINE PHOSPHATASE 54.5 U/L (56-119); ASPARTATE AMINO TRANSFERASE 68.7 U/L (17-59); BILIRUBIN,TOTAL 0.3 mg/dL (0.2-1.3); BLOOD UREA NITROGEN 18.6 mg/dL (9-20); CALCIUM 8.13 mg/dL (8.4-10.2); CARBON DIOXIDE 26.4 mmol/L (22-30.0); CHLORIDE 105.9 mmol/L (98-107); CREATININE 0.99 mg/dL (0.60-1.10); GLUCOSE 90.3 mg/dL (74-106); POTASSIUM 4.35 mmol/L (3.5-5.1); SODIUM 136.9 mmol/L (134.5-145); TOTAL PROTEIN 5.59 g/dL (6.3-8.2)
[2022-02-09] MEDS: PROTONIX PO SCH ×2 (06:03→16:27)
[2022-02-09] MEDS: K-DUR PO SCH ×2 (08:32→16:27)
[2022-02-09] MEDS: LIPITOR PO SCH (08:33)
[2022-02-09] MEDS: LEXAPRO PO SCH (08:33)
[2022-02-09] MEDS: PREDNISONE PO SCH (08:33)
[2022-02-09] MEDS: XARELTO PO SCH ×2 (08:33→20:18)
[2022-02-09] MEDS: GLUCOPHAGE PO SCH ×2 (08:33→16:27)
[2022-02-09] MEDS: NEURONTIN PO SCH ×2 (08:33→20:18)
[2022-02-09] MEDS: MIRALAX PO SCH (08:38)
[2022-02-09] MEDS: TYLENOL PO PRN (09:20)
[2022-02-09] MEDS: HUMULIN R SUBCUT PRN (11:50)
[2022-02-10 04:57] LABS: BASOPHILS % (AUTO) 0.5 % (0.0-3.0); EOSINOPHILS # (AUTO) 0.1 K/ul (0.0-0.7); EOSINOPHILS % (AUTO) 2.7 % (0.0-7.0); HEMATOCRIT 26.1 % (42.0-52.0); HEMOGLOBIN 8.6 g/dl (14.0-18.0); IMMATURE GRANULOCYTE % (AUTO) 0.3 % (0.0-5.0); LYMPHOCYTES # (AUTO) 1.1 K/uL (0.60-3.4); LYMPHOCYTES % (AUTO) 30.8 (10.0-50.0); MEAN CORPUSCULAR HEMOGLOBIN 30.9 pg (27.0-31.0); MEAN CORPUSCULAR VOLUME 93.9 fl (80.0-94.0); MONOCYTES # (AUTO) 0.3 K/uL (0.4-2.0); MONOCYTES % (AUTO) 7.9 (0-10); NEUTROPHILS # (AUTO) 2.1 K/ul (2.0-6.9); NEUTROPHILS % (AUTO) 57.8 % (42.2-75.2); PLATELET COUNT 100 10^3/uL (140-440); RDW COEFFICIENT OF VARIATION 14.4 % (11.6-14.8); RED BLOOD COUNT 2.78 10^6/ul (4.70-6.10); WHITE BLOOD COUNT 3.67 K/ul (4.2-10.2)
[2022-02-10 05:12] LABS: ALANINE AMINOTRANSFERASE 90.9 U/L (0-50); ALBUMIN 3.11 g/dL (3.5-5.0); ALKALINE PHOSPHATASE 51.4 U/L (56-119); ASPARTATE AMINO TRANSFERASE 66.3 U/L (17-59); BILIRUBIN,TOTAL 0.22 mg/dL (0.2-1.3); BLOOD UREA NITROGEN 19.5 mg/dL (9-20); CALCIUM 8.45 mg/dL (8.4-10.2); CARBON DIOXIDE 24.9 mmol/L (22-30.0); CHLORIDE 104.4 mmol/L (98-107); CREATININE 1.02 mg/dL (0.60-1.10); GLUCOSE 84.1 mg/dL (74-106); POTASSIUM 4.3 mmol/L (3.5-5.1); SODIUM 135.4 mmol/L (134.5-145); TOTAL PROTEIN 5.57 g/dL (6.3-8.2)
[2022-02-10] MEDS ORDERED: VISTARIL PO PRN (05:25)
[2022-02-10] MEDS: PROTONIX PO SCH ×2 (05:51→16:36)
[2022-02-10] MEDS: XARELTO PO SCH ×2 (09:08→20:52)
[2022-02-10] MEDS: NEURONTIN PO SCH ×2 (09:10→20:52)
[2022-02-10] MEDS: LIPITOR PO SCH (09:10)
[2022-02-10] MEDS: GLUCOPHAGE PO SCH ×2 (09:10→16:36)
[2022-02-10] MEDS: LEXAPRO PO SCH (09:11)
[2022-02-10] MEDS: K-DUR PO SCH ×2 (09:11→16:37)
[2022-02-10] MEDS: PREDNISONE PO SCH (09:11)
[2022-02-10] MEDS: MIRALAX PO SCH (09:12)
--- NOTE | 2022-02-10 09:35 | PCM.PROG ---
Attending Provider: ATTENDING PROVIDER: Dr. CHIRAG JUDGE This patient is seen with Colleen Farmer, Nurse Practitioner. DATE OF SERVICE: 02/10/22 SUBJECTIVE: This 67 year old /WHITE M was hospitalized 01/29/22. The patient will be discharge home and agreeable to [facility]. I do believe this is the best option for the patient as he does need it. The patient lives at home by himself. He would benefit from PT/OT. Agreeable to see Hematology/Oncologist nad GI. He has an appointment with Dr. Harris on and Annie on the . REVIEW OF SYSTEMS: CONSTITUTIONAL: No night sweats. No fatigue, malaise, lethargy. No fever or chills. Weakness. HEENT: Eyes: No visual changes. No eye pain. No eye discharge. ENT: No runny nose. No epistaxis. No sinus pain. No odynophagia. No congestion. RESPIRATORY: No cough, no congestion. No hemoptysis. No shortness of breath. CARDIOVASCULAR: No angina symptoms. No CHF symptoms. No atypical chest pain for CAD. No palpitations. No orthopnea.. GASTROINTESTINAL: No abdominal pain. No nausea or vomiting. No diarrhea or constipation. No hematemesis. No hematochezia. GENITOURINARY: No urgency. No frequency. No dysuria. No hematuria. No obstructive symptoms. No discharge. No pain. No significant abnormal bleeding. MUSCULOSKELETAL: No musculoskeletal pain; no joint swelling. NEUROLOGICAL: Awake, alert, oriented to time, place and person. No headache. No neck pain. No syncope. No seizures. No dizziness. PSYCHIATRIC: Not anxious. No depression. No suicidal thoughts. No homicidal thoughts. SKIN: No rash. No lesions. No wounds. ENDOCRINE: No unexplained weight loss. No weight gain. HEMATOLOGIC/LYMPHATIC: Anemia. No purpura. No petechiae. No prolonged or excessive bleeding. No palpable lymph nodes. PHYSICAL EXAMINATION: GENERAL: The patient is awake, alert and oriented, lying in bed in no distress. VITAL SIGNS: Temperature 97.7 F, Pulse 83, Respiratory Rate 18, BP 137/73, Pulse Ox 99% HEENT: Head normocephalic, atraumatic. Eyes: Extraocular muscles are intact. Pupils are equal, round and reactive to light and accommodation. Ears: No lesions. Nose appeared normal. Throat: No exudate or erythema. NECK: Supple. No JVD, no carotid bruit. No lymphadenopathy or thyromegaly. LUNGS: Diminished breath sounds. Clear to auscultation. Percussion note normal. Chest symmetrical. HEART: S1, S2, no S3. No murmurs. No cyanosis or clubbing. No ascites. Pulses: Dorsalis pedis and posterior tibial pulses +1 to +2 both sides. ABDOMEN: Soft. Non-tender. Bowel sounds active. No CVA tenderness. No mass felt. EXTREMITIES: No edema. Full range of motion of all extremities, equal. NEUROLOGIC: No focal deficit. Cranial nerves II through XII are grossly intact. No headache. No double vision. SKIN: Not dry. Intact. Turgor-normal. LYMPHATIC: No palpable lymph nodes/no lymphedema. MUSCULOSKELETAL: Normal joints with no swelling. Muscle tone is normal. LAB REVIEW: 02/10/22 04:45 02/10/22 04:45 02/10/22 04:45: Sodium 135.4, Potassium 4.30, Chloride 104.4, Carbon Dioxide 24.9, Anion Gap 10.40, BUN 19.5, Creatinine 1.02, Estimated GFR (MDRD) 72.00, BUN/Creatinine Ratio 19.11, Glucose 84.1, Calcium 8.45, Total Bilirubin 0.22, AST 66.3 H, ALT 90.9 H, Alkaline Phosphatase 51.4 L, Total Protein 5.57 L, Albumin 3.11 L, Globulin 2.46, Albumin/Globulin Ratio 1.26 02/10/22 04:45: WBC 3.67 L, RBC 2.78 L, Hgb 8.6 L, Hct 26.1 L, MCV 93.9, MCH 30.9, MCHC 33.0, RDW Coeff of Delia 14.4, Plt Count 100 L, Immature Gran % (Auto) 0.3, Neut % (Auto) 57.8, Lymph % (Auto) 30.8, [place] % (Auto) 7.9, Eos % (Auto) 2.7, Baso % (Auto) 0.5, Neut # (Auto) 2.1, Lymph # (Auto) 1.1, [place] # (Auto) 0.3 L, Eos # (Auto) 0.1, Baso # (Auto) 0.0, Immature Gran # (Auto) 0.0 ASSESSMENT: Please see below. 1. Anemia likely due to Lymphoma 2. Extensive gastric wall thickening likely due to lymphoma 3. Carotid occlusion 4. Severe PAD 5. COPD 6. Smoker 7. History of noncompliance with medication and followup 8. Diabetes mellitus type II 9. Chronic back pain. PLAN: 1. Discharge to [facility] 2. The patient would significantly benefit from PT/OT 3. Agreed to referral to Dr. Harris on the and GI on the . 4. He is declining Hospice 5. Medications have been reviewed 6. Xarelto 2.5mg BID 7. Followup in the office next week. Plan and coordination of the patient's care discussed in the presence of Performance Reporter and nurse. SCRIBED BY: Lillie CARVER scribed while in presence of service performed by Dr. Judge/Colleen Farmer APRN on 02/10/22 ([id number])
[2022-02-11 05:11] VITALS: BP 122/59; TEMP 97.4
[2022-02-11] MEDS: PROTONIX PO SCH (05:38)
--- NOTE | 2022-02-11 09:33 | PCM.PROG ---
Attending Provider: ATTENDING PROVIDER: Dr. CHIRAG RAZA This patient is seen with Colleen Farmer, Nurse Practitioner. DATE OF SERVICE: 02/11/22 SUBJECTIVE: This 67 year old /WHITE M was hospitalized 01/29/22. Pleasant this morning. Stable for discharge. He is agreeable to [facility] I do believe this is the best option for him as he is a danger to himself at home alone. He is and home alone. Labs are stable. Followup appointment have been made. REVIEW OF SYSTEMS: CONSTITUTIONAL: No night sweats. No fatigue, malaise, lethargy. No fever or chills. Weakness. HEENT: Eyes: No visual changes. No eye pain. No eye discharge. ENT: No runny nose. No epistaxis. No sinus pain. No odynophagia. No congestion. RESPIRATORY: No cough, no congestion. No hemoptysis. No shortness of breath. CARDIOVASCULAR: No angina symptoms. No CHF symptoms. No atypical chest pain for CAD. No palpitations. No orthopnea.. GASTROINTESTINAL: No abdominal pain. No nausea or vomiting. No diarrhea or constipation. No hematemesis. No hematochezia. GENITOURINARY: No urgency. No frequency. No dysuria. No hematuria. No obstructive symptoms. No discharge. No pain. No significant abnormal bleeding. MUSCULOSKELETAL: No musculoskeletal pain; no joint swelling. NEUROLOGICAL: Awake, alert, oriented to time, place and person. No headache. No neck pain. No syncope. No seizures. Dizziness. PSYCHIATRIC: Not anxious. No depression. No suicidal thoughts. No homicidal thoughts. SKIN: No rash. No lesions. No wounds. Pallor. ENDOCRINE: No unexplained weight loss. No weight gain. HEMATOLOGIC/LYMPHATIC: No anemia. No purpura. No petechiae. No prolonged or excessive bleeding. No palpable lymph nodes. PHYSICAL EXAMINATION: GENERAL: The patient is awake, alert and oriented, lying in bed in no distress. VITAL SIGNS: Temperature 97.4 F, Pulse 59, Respiratory Rate 18, BP 122/59, Pulse Ox 99% HEENT: Head normocephalic, atraumatic. Eyes: Extraocular muscles are intact. Pupils are equal, round and reactive to light and accommodation. Ears: No lesions. Nose appeared normal. Throat: No exudate or erythema. NECK: Supple. No JVD, no carotid bruit. No lymphadenopathy or thyromegaly. LUNGS: Diminished breath sounds. Clear to auscultation. Percussion note normal. Chest symmetrical. HEART: S1, S2, no S3. No murmurs. No cyanosis or clubbing. No ascites. Pulses: Dorsalis pedis and posterior tibial pulses +1 to +2 both sides. ABDOMEN: Soft. Non-tender. Bowel sounds active. No CVA tenderness. No mass felt. EXTREMITIES: No edema. Full range of motion of all extremities, equal. NEUROLOGIC: No focal deficit. Cranial nerves II through XII are grossly intact. No headache. No double vision. SKIN: Not dry. Intact. Turgor-normal. LYMPHATIC: No palpable lymph nodes/no lymphedema. MUSCULOSKELETAL: Normal joints with no swelling. Muscle tone is normal. LAB REVIEW: 02/10/22 04:45 02/10/22 04:45 ASSESSMENT: Please see below. 1. Anemia likely due to Lymphoma 2. Extensive gastric wall thickening likely due to lymphoma 3. Carotid occlusion 4. Severe PAD 5. COPD 6. Smoker 7. History of noncompliance with medication and followup 8. Diabetes mellitus type II 9. Chronic back pain. PLAN: 1. Discharge to [facility] for PT/OT 2. Again I do feel a correction facility is the best option as he has persistent dizziness and weakness due to sever PAD, Carotid occlusion and Lymphoma. He would be a danger to himself at home along. Plan and coordination of the patient's care discussed in the presence of Detective Supervisor and nurse. SCRIBED BY: Lillie CARVER scribed while in presence of service performed by Dr. Raza/Colleen Farmer APRN on 02/11/22 ([id number])
[2022-02-11] MEDS: XARELTO PO SCH (10:08)
[2022-02-11] MEDS: PREDNISONE PO SCH (10:08)
[2022-02-11] MEDS: NEURONTIN PO SCH (10:09)
[2022-02-11] MEDS: LIPITOR PO SCH (10:09)
[2022-02-11] MEDS: K-DUR PO SCH (10:10)
[2022-02-11] MEDS: LEXAPRO PO SCH (10:10)
[2022-02-11] MEDS: GLUCOPHAGE PO SCH (10:11)
[2022-02-11] MEDS: MIRALAX PO SCH (10:12)
--- NOTE | 2022-02-11 10:54 | PN ---
DATE OF SERVICE: 02/10/22 SUBJECTIVE: The patient was seen and examined with the Nurse Practitioner. The patient's condition is more or less stable. Prognosis is poor considering the patient's severe Carotid bilateral complete occlusive disease along with one the vertebral that are also clogged up. The patient has the possibility of lymphoma of the stomach and severe anemia which could be combination of Myelodysplastic syndrome with lymphoma. Also has peripheral arterial disease, heavy smoking with chronic lung disease. He is going to be discharged to some place in [facility]. He is going to have a rehab. TIME SPENT: More than 30 minutes. Plan and coordination of the patient's care discussed in the presence of nurse. BERTA
--- NOTE | 2022-02-11 12:00 | PN ---
DATE OF SERVICE: 02/09/22 SUBJECTIVE: 67 year old white male who is hospitalized with dehydration, COPD exacerbation. The patient's condition has improved and he is feeling a lot better. Appetite has improved. REVIEW OF SYSTEMS: CONSTITUTIONAL: No night sweats. No fatigue, malaise, lethargy. No fever or chills. HEENT: Eyes: No visual changes. No eye pain. No eye discharge. ENT: No runny nose. No epistaxis. No sinus pain. No sore throat. No odynophagia. No congestion. RESPIRATORY: No cough, no congestion. No hemoptysis. No shortness of breath. CARDIOVASCULAR: No angina symptoms. No CHF symptoms. No atypical chest pain for CAD. No palpitations. No PND. No orthopnea. GASTROINTESTINAL: No abdominal pain. No nausea or vomiting. No diarrhea or constipation. No hematemesis. No hematochezia. GENITOURINARY: No urgency. No frequency. No dysuria. No hematuria. No obstructive symptoms. No discharge. No pain. No significant abnormal bleeding. MUSCULOSKELETAL: No musculoskeletal pain; no joint swelling. NEUROLOGICAL: No headache. No neck pain. No syncope. No seizures. Mild dizziness. PSYCHIATRIC: Not anxious. No depression. No suicidal thoughts. No homicidal thoughts. SKIN: No rash. No lesions. No wounds. ENDOCRINE: No unexplained weight loss. No weight gain. HEMATOLOGIC/LYMPHATIC: No anemia. No purpura. No petechiae. No prolonged or excessive bleeding. No palpable lymph nodes. PHYSICAL EXAMINATION: GENERAL: The patient is oriented to time, place and person. VITAL SIGNS: Temperature 97.2, pulse 60, respiratory rate 18, blood pressure 113/64 and pulse ox 98%. HEENT: Head normocephalic, atraumatic. Eyes: Extraocular muscles are intact. Pupils are equal, round and reactive to light and accommodation. Ears: No lesions. Nose appeared normal. Throat: No exudate or erythema. NECK: Supple. No JVD, no carotid bruit. No lymphadenopathy or thyromegaly. LUNGS: Decreased breath sounds but clear to auscultation. Percussion note normal. Chest symmetrical. HEART: S1, S2, no S3. No murmurs. No cyanosis or clubbing. No ascites. Pulses: Dorsalis pedis and posterior tibial pulses +1 to +2 bilaterally. ABDOMEN: Soft. Nontender. Bowel sounds active. No CVA tenderness. No mass felt. EXTREMITIES: Trace edema. Full range of motion of all extremities, equal. NEUROLOGIC: No focal deficit. Cranial nerves II through XII are grossly intact. No headache. No double vision. SKIN: Not dry. Intact. Turgor - normal. LYMPHATIC: No palpable lymph nodes/no lymphedema. MUSCULOSKELETAL: Normal joints with no swelling. Muscle tone is normal. LABS: hgb 8.7, hct 26, WBC 3,900 normal differential, plt count 80,000, creatinine and potassium all normal ASSESSMENT: 1. COPD exacerbation seems to have resolved 2. Dehydration resolved 3. Severe carotid and vertebral occlusive disease 4. Severe peripheral arterial disease 5. Severe chronic lung disease 6. Abnormal CT scan of the abdomen and chest indicating thickening of the stomach wall raising the possibility of lymphoma neoplasm. PLAN: 1. The patient is going to be discharged tomorrow. He doesn't want to go to institution, [facility] in [place]. The patient simple wants to go home according to him. He said he doesn't want anybody to tell him what to do and he was referring to his family members. 3. TIME SPENT: More than 30 minutes. Plan and coordination of the patient's care discussed in the presence of nurse. BERTA
--- NOTE | 2022-02-11 13:48 | DS ---
DATE OF SERVICE: 02/11/22 FINAL DIAGNOSIS: 1. Symptomatic anemia requiring transfusion 2. Acute COPD exacerbation 3. Esophageal thickening consistent with lymphoma 4. Bilateral carotid occlusion 5. Severe PAD DISCHARGE INSTRUCTIONS: Discharge from [facility] today February 10, 2022. Followup with Dr. Judge/Colleen Farmer APRN/ Yi Berg APRN in office on 02/17/22. Referral to GI requested per Dr. Judge, called Dr. Valencia. New appointment 02-25-22 at 9:30am. Appointment with Char Ríos NP at Dr. Harris on 02-13-22 at 11:30. MEDICATIONS AT DISCHARGE: Escitalopram Oxalate 20mg PO daily Gabapentin 300mg PO BID Hydrocodone/Acetaminophen 10-325mg PO BID PRN Atorvastatin 20mg PO daily NEW PRESCRIPTIONS: Protonix 40 mg by mouth TWICE a day Prednisone 10 mg by mouth ONCE a day for 5 days Metformin 500 mg by mouth TWICE a day (THIS IS A DECREASE IN DOSAGE) Xarelto 2.5 mg by mouth TWICE a day (sample was provided to you) DISCONTINUED MEDICATIONS: Plavix Omeprazole (Prilosec) DIET INSTRUCTIONS: Regular diet ACTIVITY: Activity as tolerated. HOSPITAL COURSE: This is a 67 year old white male who presented to the emergency room after falling at home from dizziness. He was also found to be short of breath and coughing. Chest x-ray showed changes associated with COPD. He was admitted and started on IV fluids, IV anitbiotics and IV steroids. A carotid scan has been done as an outpatient about 7-10 days prior for dizziness which recommended as CTA. A CTA was ordered while he was hospitalized which indicated that he had bilateral carotid occlusion with 1 vertebral artery open and he had collaterals which was the cause of his dizziness. A CT chest and abdomen also showed possible metastatic lymphadenopathy in the chest and abdomen along with esophageal thickening consistent with possible neoplasm or lymphoma. He had significant anemia upon admission. Hgb got down to 7.2. He was transfused with two units and went up to about 8.9 and then back down to 8.6 and again down to 7.6. He was started on Eliquis due to the Carotid stenosis and discontinued his Plavix after findings the carotid occlusion. It then became apparent that he was still actively bleeding and that the anemia was a combination of blood loss due to the Eliquis along with the Lymphoma so we discontinued the Eliquis and placed him on Xarelto 2.5mg BID which is indicated for severe PAD. He has tolerated this well. On day of discharge hgb is stable at 8.6. He still has significant dizziness which is likely due to the severe carotid stenosis. He has been working well with physical therapy. He is and lives at home by himself. At this time he has agreed to go to [facility] for physical and occupational therapy which I believe is the best option. I do believe that he would be a danger to himself to go home along as he does need some assistance with ADL's. 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 He labs have improved and are stable. His cough and congestion has cleared up. We have discontinued his IV steroids. He is transitioned to PO steroids. He did require some IV fluids two days ago due to hypotension and this has since resolved. He is agreeable and he has an appointment with GI I believe on the and then has an appointment with Dr. Harris, Hemo/ Onco I believe next Thursday. We will discharge him in stable condition. He is to go to [facility] again for PT/OT and we will followup with him in the next 10-14 days. TIME SPENT: More than 60 minutes. BERTA
--- NOTE | 2022-02-11 14:46 | PN ---
DATE OF SERVICE: 02/08/22 SUBJECTIVE: 67 year old white male hospitalized with dehydration, COPD exacerbation and both of them resolved. His appetite has improved, he is feeling better. Hgb and hct has been stable. No active GI bleed. REVIEW OF SYSTEMS: CONSTITUTIONAL: No night sweats. No fatigue, malaise, lethargy. No fever or chills. HEENT: Eyes: No visual changes. No eye pain. No eye discharge. ENT: No runny nose. No epistaxis. No sinus pain. No sore throat. No odynophagia. No congestion. RESPIRATORY: No cough, no congestion. No hemoptysis. No shortness of breath. CARDIOVASCULAR: No angina symptoms. No CHF symptoms. No atypical chest pain for CAD. No palpitations. No PND. No orthopnea. GASTROINTESTINAL: No abdominal pain. No nausea or vomiting. No diarrhea or constipation. No hematemesis. No hematochezia. GENITOURINARY: No urgency. No frequency. No dysuria. No hematuria. No obstructive symptoms. No discharge. No pain. No significant abnormal bleeding. MUSCULOSKELETAL: No musculoskeletal pain; no joint swelling. NEUROLOGICAL: No headache. No neck pain. No syncope. No seizures. Dizziness much less. PSYCHIATRIC: Not anxious. No depression. No suicidal thoughts. No homicidal thoughts. SKIN: No rash. No lesions. No wounds. ENDOCRINE: No unexplained weight loss. No weight gain. HEMATOLOGIC/LYMPHATIC: No anemia. No purpura. No petechiae. No prolonged or excessive bleeding. No palpable lymph nodes. PHYSICAL EXAMINATION: VITAL SIGNS: Temperature 97.9, pulse 66, respiratory rate 18, blood pressure 105/55 and pulse ox 97%. HEENT: Head normocephalic, atraumatic. Eyes: Extraocular muscles are intact. Pupils are equal, round and reactive to light and accommodation. Ears: No lesions. Nose appeared normal. Throat: No exudate or erythema. NECK: Supple. No JVD, no carotid bruit. No lymphadenopathy or thyromegaly. LUNGS: Decreased breath sounds but clear to auscultation. Percussion note normal. Chest symmetrical. HEART: S1, S2, no S3. No murmurs. No cyanosis or clubbing. No ascites. Pulses: Dorsalis pedis and posterior tibial pulses Feeble bilaterally. ABDOMEN: Soft. Nontender. Bowel sounds active. No CVA tenderness. No mass felt. EXTREMITIES: Trace edema. Full range of motion of all extremities, equal. NEUROLOGIC: No focal deficit. Cranial nerves II through XII are grossly intact. No headache. No double vision. SKIN: Not dry. Intact. Turgor - normal. LYMPHATIC: No palpable lymph nodes/no lymphedema. MUSCULOSKELETAL: Normal joints with no swelling. Muscle tone is normal. LABS: Hgb 9, hct 27, WBC 4,200 normal differential, creatinine 0.9, BUN 19, potassium 4.1 ASSESSMENT: 1. COPD exacerbation resolved with history of smoking, counseling for smoking done. 2. 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 Severe peripheral arterial disease 4. Other problem which is thickening of the stomach wall indicating possibility of lymphoma or neoplasma PLAN: 1. Discharge the patient to [facility] in [place]. Today the patient says that he is not going anywhere he is going to go home. He has changed his mind practically everyday or twice a day. CONDITION: Overall has improved Hospice has been discussed with him. Family also thoughts what the patient is going to do. The patient's condition is stable and prognosis is poor. The patient has GI and hematology/oncologist consult waiting. 3. TIME SPENT: More than 30 minutes. Plan and coordination of the patient's care discussed in the presence of nurse. BERTA
--- NOTE | 2022-02-13 11:48 | PN ---
01/29/22: Level 5 01/30/22: Intermediate 01/31/22: Intermediate 02/01/22: Intermediate 02/02/22: Intermediate 02/03/22: Intermediate 02/04/22: Intermediate 02/05/22: Intermediate 02/06/22: Intermediate 02/07/22: Intermediate 02/08/22: Intermediate 02/09/22: Intermediate 02/10/22: Intermediate 02/11/22: D as in discharge. MTDD
== END 2022-02-11 13:42 | DRG 812 ==
LOC: ED 16:25 → INTOOBSV 22:15 → MEDSURG A 22:15 → OBSVTOIN 22:15 → MEDSURG A 01-30 00:25
PROVIDERS: ADMIT Internal Medicine; ATTEND Internal Medicine
DX: W19.XXXA Unspecified fall, initial encounter; E11.9 Type 2 diabetes mellitus without complications; N17.9 Acute kidney failure, unspecified; D64.9 Anemia, unspecified; S01.91XA Laceration without foreign body of unspecified part of head, initial encounter; M54.2 Cervicalgia; R42 Dizziness and giddiness; Z79.899 Other long term (current) drug therapy; R53.83 Other fatigue; Z20.822 Contact with and (suspected) exposure to COVID-19; J44.0 Chronic obstructive pulmonary disease with (acute) lower respiratory infection; R06.02 Shortness of breath; F17.210 Nicotine dependence, cigarettes, uncomplicated; Z79.84 Long term (current) use of oral hypoglycemic drugs; E86.0 Dehydration; I10 Essential (primary) hypertension; Z51.81 Encounter for therapeutic drug level monitoring; Z91.14 Patient's other noncompliance with medication regimen; K22.89 Other specified disease of esophagus; I73.9 Peripheral vascular disease, unspecified; E87.71 Transfusion associated circulatory overload; I65.23 Occlusion and stenosis of bilateral carotid arteries

== ENCOUNTER 2024-08-08 12:14 | Inpatient (IN) ==
[2024-08-08] MEDS: SODIUM CHLORIDE 1,000 ML IV ONE (13:00)
[2024-08-08 13:15] LABS: BASOPHILS % (AUTO) 0.1 % (0.0-3.0); HEMATOCRIT 41.3 % (42.0-52.0); HEMOGLOBIN 13.2 g/dl (14.0-18.0); IMMATURE GRANULOCYTE % (AUTO) 0.2 % (0.0-5.0); LYMPHOCYTES # (AUTO) 0.6 K/uL (0.60-3.4); LYMPHOCYTES % (AUTO) 5.2 (10.0-50.0); MEAN CORPUSCULAR HEMOGLOBIN 29.9 pg (27.0-31.0); MEAN CORPUSCULAR VOLUME 93.7 fl (80.0-94.0); MONOCYTES # (AUTO) 0.3 K/uL (0.4-2.0); MONOCYTES % (AUTO) 2.8 (0-10); NEUTROPHILS # (AUTO) 10.6 K/ul (2.0-6.9); NEUTROPHILS % (AUTO) 91.7 % (42.2-75.2); PLATELET COUNT 242 10^3/uL (140-440); RDW COEFFICIENT OF VARIATION 13.8 % (11.6-14.8); RED BLOOD COUNT 4.41 10^6/ul (4.70-6.10); WHITE BLOOD COUNT 11.51 K/ul (4.2-10.2)
[2024-08-08] MEDS: ZOFRAN 4 MG/2 ML IVP ONE (13:19)
[2024-08-08] MEDS: PROTONIX IVP ONE (13:20)
--- NOTE | 2024-08-08 13:24 | ED.PDOC ---
General ED Provider: Dr. MANGO VÁSQUEZ MD Chief Complaint: Abdominal Pain Stated Complaint: 69 yo WM brought in by EMS for lower abdominal pain. Vague historian. Said pain for 2 days, comes and goes, no radiating but now points to the suprapubic area. Pain has subsided quite a bit. Did vomit half dozen times, brownish liquid. No diarrhea or rectal bleeding. No urinary sx. No fever. Some vague chest pain (said it's not his heart) and unk duration. When pressed, he replied 2 days and intermittent, over the xiphoid area. He reports he is always SOB. Call the office about any history and they report no recent stress test. He did have carotid blockages and anemia and has been referred to vascular and hematology and non-compliant with follow up. Sees pain management and had recent MRI of the lumbar spine and Kelvin Price recommended epidural injection of L5-S1. 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 Time Seen by Provider: 08/08/24 12:24 Mode of Arrival: Ambulance Information Source: Patient and Family Exam Limitations: Clinical condition Primary Care Provider: CHIRAG RAZA MD Referred to ED by: Other (self) Nursing and Triage Documentation Reviewed and Agree: Yes Does Patient Take Opioids?: Yes What is Opioid Naive?: *Opioid Naive implies the patient is not already taking opioids or not chronically receiving opioids on a daily basis. *PRN dosing is not "usually" associated with tolerance. *Patients are at higher risk of over-sedation and aspiration. What is Opioid Tolerant?: *Opioid Tolerance implies less than the expected response to an opioid. *Acquired tolerance is defined by the patient taking 60mg of oral morphine daily (or equianalgesic dose of another opioid) for 1 week or more. *Often associated with chronic pain. *May take more than usual dose to achieve desired pain control. Review of Systems Review Of Systems Constitutional: Reports No symptoms Eyes: Reports No symptoms Respiratory: Reports Cough and Shortness of Breath Cardiac: Reports Chest pain GI: Reports Abdominal pain and Vomiting; Denies Diarrhea : Reports No symptoms Musculoskeletal: Reports Back pain Skin: Reports No symptoms Neurological: Denies Anxiety, Depressed or Headache Endocrine: Reports No symptoms [facility] Medical History DVT (deep venous thrombosis) left leg I82.409 - Acute embolism and thrombosis of unspecified deep veins of unspecified lower extremity (ICD-10) Syncope and collapse R55 - Syncope and collapse (ICD-10) Esophageal thickening K22.89 - Other specified disease of esophagus (ICD-10) Family History FATHER Diabetes Mother Diabetes SISTER Diabetes Social History Smoking and tobacco status: Current every day smoker Tobacco type: cigarettes Smoking packs per day: 1 Smoking cigarettes per day: 20.0 Alcohol intake: current Alcohol intake frequency: 3 or more drinks per day Alcohol type: beer Substance use type: former substance user Special antonio needs: No Agree to transfusion: Yes Adopted: No Caregiver/support person: No Foster care: No Household members: none Housing: house Marital status: M Number of children: 2 service: No [facility]: No History of recent travel: No Do you think of yourself as: straight/heterosexual Current gender identity: male Seatbelt use: always Drives intoxicated or rides with intoxicated fire truck driver: No Water heater temperature set < 120 degrees: Yes Working smoke detector in home: Yes Fire extinguisher in home: Yes Carbon monoxide detector in home: Yes Surgical History Hx of neck surgery Z98.890 - Other specified postprocedural states (ICD-10) Previous back surgery Z98.890 - Other specified postprocedural states (ICD-10) History of appendectomy Z90.49 - Acquired absence of other specified parts of digestive tract (ICD- 10) History of vein stripping Dr. Mendoza Z98.890 - Other specified postprocedural states (ICD-10) Physical Exam Physical Exam Appearance: Reports Well-nourished Ill-appearing: Mild Pain Distress: Mild ENT: Reports Nose normal and Oropharynx normal Neck: Supple Respiratory: Reports Airway patent, Breath sounds clear, Respirations nonlabored and Rhonchi Cardiovascular: Reports RRR, Pulses normal, No rub, No murmur and Irregular rhythm GI/: Reports Soft, No masses, Bowel sounds normal and Tender (Mild at lower quadrants. ) Musculoskeletal: Reports Normal strength, No edema and No calf tenderness; Denies Limited strength Skin: Reports Warm, Dry and Other (urticarial rash on torso.) Neurological: Reports Sensation intact, Motor intact, Cranial nerves intact, Alert and Oriented Psychiatric: Reports Mood appropriate Course Course 08/08/24 12:58 08/08/24 13:06 Orders, Labs, Meds: Lab Review 08/08/24 08/08/24 08/08/24 12:58 13:06 15:40 WBC 11.51 H RBC 4.41 L Hgb 13.2 L Hct 41.3 L MCV 93.7 MCH 29.9 MCHC 32.0 RDW Coeff of Delia 13.8 Plt Count 242 Immature Gran % (Auto) 0.2 Neut % (Auto) 91.7 H Lymph % (Auto) 5.2 L [place] % (Auto) 2.8 Eos % (Auto) 0.0 Baso % (Auto) 0.1 Neut # (Auto) 10.6 H Lymph # (Auto) 0.6 [place] # (Auto) 0.3 L Eos # (Auto) 0.0 Baso # (Auto) 0.0 Immature Gran # (Auto) 0.0 Sodium 138.0 Potassium 3.19 L Chloride 90.3 L Carbon Dioxide 25.6 Anion Gap 25.29 BUN 35.9 H Creatinine 3.07 H Estimated GFR (MDRD) 20.00 BUN/Creatinine Ratio 11.69 Glucose 223.2 H Lactic Acid 6.70 H Calcium 9.78 Magnesium 1.05 L Total Bilirubin 0.76 AST 50.3 ALT 80.1 H Alkaline Phosphatase 71.4 Troponin I 0.101 NT-Pro-B Natriuret Pep 1570 H Total Protein 7.95 Albumin 4.85 Globulin 3.10 Albumin/Globulin Ratio 1.56 Lipase 72.2 Procalcitonin 0.33 H Urine Color Yellow Urine Clarity Clear Urine pH 5.0 Ur Specific [place] >=1.030 Urine Protein 1+ H Urine Glucose (UA) Negative Urine Ketones 1+ H Urine Blood Trace-intact H Urine Nitrite Negative Urine Bilirubin 1+ H Urine Urobilinogen 0.2 Ur Leukocyte Esterase Negative Urine Microscopic RBC 2-5 Ur Squamous Epith Cells Not Reportable Ur Renal Epithelial Cell 0-2 Amorphous Sediment 2+ Hyaline Casts Tntc SARS CoV-2 RNA Rapid ARCHIE 08/08/24 08/08/24 16:35 17:08 WBC RBC Hgb Hct MCV MCH MCHC RDW Coeff of Delia Plt Count Immature Gran % (Auto) Neut % (Auto) Lymph % (Auto) [place] % (Auto) Eos % (Auto) Baso % (Auto) Neut # (Auto) Lymph # (Auto) [place] # (Auto) Eos # (Auto) Baso # (Auto) Immature Gran # (Auto) Sodium Potassium Chloride Carbon Dioxide Anion Gap BUN Creatinine Estimated GFR (MDRD) BUN/Creatinine Ratio Glucose Lactic Acid 3.41 H Calcium Magnesium Total Bilirubin AST ALT Alkaline Phosphatase Troponin I NT-Pro-B Natriuret Pep Total Protein Albumin Globulin Albumin/Globulin Ratio Lipase Procalcitonin Urine Color Urine Clarity Urine pH Ur Specific [place] Urine Protein Urine Glucose (UA) Urine Ketones Urine Blood Urine Nitrite Urine Bilirubin Urine Urobilinogen Ur Leukocyte Esterase Urine Microscopic RBC Ur Squamous Epith Cells Ur Renal Epithelial Cell Amorphous Sediment Hyaline Casts SARS CoV-2 RNA Rapid ARCHIE Negative Orders Category Date Time Status ADMIT OBSERVATION [PLACE PATIENT OBSERVATION] .TO ADMISSION 08/08/24 16:57 Active MEDSURG (MONITORED BED) EKG-(ED ONLY) Stat CARDIO 08/08/24 12:52 Completed NEBULIZER TREATMENT Routine CARDIO 08/08/24 13:27 Completed NEBULIZER TREATMENT Stat CARDIO 08/08/24 13:27 Completed ACTIVITY .Early Mobilization for VTE Prevention CARE 08/08/24 16:55 Active INTAKE & OUTPUT Q8HR CARE 08/08/24 16:55 Active NPO REMINDER: IMAGING ONCE CARE 08/08/24 12:53 Completed TELEMETRY MONITORING TELE CARE 08/08/24 16:58 Active VITAL SIGNS Q4HR CARE 08/08/24 16:55 Active REGULAR DIET DIETARY 08/08/24 Dinner Ordered BLOOD CULTURE Stat LAB 08/08/24 15:26 Received CBC W/ AUTO DIFF DAILY@0600 LAB 08/09/24 06:00 Ordered CBC W/ AUTO DIFF DAILY@0600 LAB 08/10/24 06:00 Ordered CBC W/ AUTO DIFF Stat LAB 08/08/24 12:58 Completed CMP [COMPREHENSIVE METABOLIC PANEL] Stat LAB 08/08/24 13:06 Completed COMPREHENSIVE METABOLIC PANEL DAILY@0600 LAB 08/09/24 06:00 Ordered COMPREHENSIVE METABOLIC PANEL DAILY@0600 LAB 08/10/24 06:00 Ordered COVID [SARS COV-2 RNA RAPID ARCHIE] Stat LAB 08/08/24 17:08 Completed H. PYLORI STOOL AG Routine LAB 08/08/24 Uncollected LACTIC ACID DAILY@0600 LAB 08/09/24 06:00 Ordered LACTIC ACID Stat LAB 08/08/24 13:06 Completed LACTIC ACID Stat LAB 08/08/24 16:35 Completed LIPASE Stat LAB 08/08/24 13:06 Completed MAGNESIUM Stat LAB 08/08/24 13:06 Completed NT-PROBNP(ED) Stat LAB 08/08/24 13:06 Completed PROCALCITONIN Stat LAB 08/08/24 12:58 Completed ROTAVIRUS,STOOL Routine LAB 08/08/24 17:01 Uncollected STOOL CULTURE Routine LAB 08/08/24 Uncollected TROPONIN I Stat LAB 08/08/24 13:06 Completed URINALYSIS C & S IF INDICATED Stat LAB 08/08/24 15:40 Completed Acetaminophen [Tylenol] Meds 08/08/24 16:55 Active 650 mg PO Q4H PRN Albuterol Sulfate 0.083% Neb [Albuterol 0.083% Neb] Meds 08/08/24 13:27 Discontinued 2.5 mg NEB ONCE ONE Ceftriaxone/D5w 1 gm Premix [Rocephin 1 gm/50 ml D5w] Meds 08/09/24 09:00 Active 1 gm in 50 ml IV DAILY Ceftriaxone/D5w 1 gm Premix [Rocephin 1 gm/50 ml D5w] Meds 08/08/24 16:16 Discontinued 1 gm in 50 ml IV ONCE Diphenhydramine Inj [Benadryl] Meds 08/08/24 13:38 Discontinued 25 mg IVP ONCE STA Magnesium Sulfate in Water [Magnesium Sulf 2 G/50 ml Meds 08/08/24 16:54 Active Bag] 2 gm in 50 ml IV ONCE Methylprednisolone Sod Succ/Pf [Solu-Medrol 40 mg] Meds 08/08/24 13:35 Discontinued 40 mg IVP ONCE ONE Metoclopramide HCl [Reglan] Meds 08/08/24 16:55 Active 5 mg IVP Q6H PRN Metronidazole/Sodium Chloride [Flagyl 500 mg/100 ml] Meds 08/08/24 21:00 Active 500 mg in 100 ml IV Q8HR Ondansetron HCl/Pf [Zofran 4 mg/2 ml] Meds 08/08/24 12:54 Discontinued 4 mg IVP ONCE ONE Ondansetron HCl/Pf [Zofran 4 mg/2 ml] Meds 08/08/24 16:55 Active 4 mg IVP Q6H PRN Pantoprazole Sodium [Protonix] Meds 08/09/24 09:00 Active 40 mg IVP DAILY Pantoprazole Sodium [Protonix] Meds 08/08/24 12:54 Discontinued 40 mg IVP ONCE ONE Potassium Chloride [K-Dur] Meds 08/08/24 16:59 Discontinued 40 meq PO ONCE ONE Ringers Lactated Solution [Lactated Ringers] 1,000 ml Meds 08/08/24 17:00 Active IV 100 mls/hr Ringers Lactated Solution [Lactated Ringers] 1,000 ml Meds 08/08/24 12:53 Discontinued IV BOLUS Ringers Lactated Solution [Lactated Ringers] 1,000 ml Meds 08/08/24 16:19 Discontinued IV BOLUS Sodium Chloride 0.9% [Sodium Chloride] 1,000 ml Meds 08/08/24 13:00 Discontinued IV BOLUS CHEST, 1V AP ONLY Stat RADS 08/08/24 12:[address] ABDOMEN/PELVIS WO CONTRAST Stat RADS 08/08/24 13:41 Completed Medications Generic Name Dose Route Start Last Admin Trade Name Freq PRN Reason Stop Dose Admin Acetaminophen 650 mg 08/08/24 16:55 Acetaminophen 325 Mg Tablet PO Q4H PRN Mild Pain MAGNESIUM SULFATE IN WATER 2 gm in 50 mls @ 25 mls/hr 08/08/24 16:54 08/08/24 18:14 Magnesium Sulf 2 G/50 Ml Bag IV 08/08/24 18:53 25 mls/hr ONCE ONE Administration Lactated Ringer's 1,000 mls @ 100 mls/hr 08/08/24 17:00 Lactated Ringers IV .Q10H BERNARDO CEFTRIAXONE/D5W 1 GM PREMIX 1 gm in 50 mls @ 100 mls/hr 08/09/24 09:00 Rocephin 1 Gm/50 Ml D5w IV 08/12/24 08:59 DAILY BERNARDO Metronidazole 500 mg in 100 mls @ 100 mls/hr 08/08/24 21:00 Flagyl 500 Mg/100 Ml IV 08/11/24 20:59 Q8HR BERNARDO Metoclopramide HCl 5 mg 08/08/24 16:55 Metoclopramide Hcl 10 Mg/2 Ml IVP Q6H PRN Nausea / Vomiting Ondansetron HCl 4 mg 08/08/24 16:55 Ondansetron Hcl/Pf 4 Mg/2 Ml Sdv IVP Q6H PRN Nausea / Vomiting Pantoprazole Sodium 40 mg 08/09/24 09:00 Pantoprazole Sodium 40 Mg Vial IVP DAILY BERNARDO Discontinued Medications Generic Name Dose Route Start Last Admin Trade Name Freq PRN Reason Stop Dose Admin Albuterol Sulfate 2.5 mg 08/08/24 13:27 08/08/24 13:40 Albuterol Sulfate 0.083% Vial.Neb NEB 08/08/24 13:28 2.5 mg ONCE ONE Administration Diphenhydramine HCl 25 mg 08/08/24 13:38 08/08/24 13:44 Diphenhydramine Inj 50 Mg/Ml Vial IVP 08/08/24 13:39 25 mg ONCE STA Administration Lactated Ringer's 1,000 mls @ 1,000 mls/hr 08/08/24 12:53 08/08/24 13:34 Lactated Ringers IV 08/08/24 13:52 Not Given BOLUS ONE Sodium Chloride 1,000 mls @ 1,000 mls/hr 08/08/24 13:00 08/08/24 14:13 Sodium Chloride IV 08/08/24 13:59 Infused BOLUS ONE Infusion CEFTRIAXONE/D5W 1 GM PREMIX 1 gm in 50 mls @ 100 mls/hr 08/08/24 16:16 08/08/24 16:45 Rocephin 1 Gm/50 Ml D5w IV 08/08/24 16:45 100 mls/hr ONCE ONE Administration Lactated Ringer's 1,000 mls @ 1,000 mls/hr 08/08/24 16:19 08/08/24 17:46 Lactated Ringers IV 08/08/24 17:18 1,000 mls/hr BOLUS ONE Administration Methylprednisolone Sodium Succinate 40 mg 08/08/24 13:35 08/08/24 13:44 Methylprednisolone Sod Succ/Pf 40 Mg/Ml Vial IVP 08/08/24 13:36 40 mg ONCE ONE Administration Ondansetron HCl 4 mg 08/08/24 12:54 08/08/24 13:19 Ondansetron Hcl/Pf 4 Mg/2 Ml Sdv IVP 08/08/24 12:55 4 mg ONCE ONE Administration Pantoprazole Sodium 40 mg 08/08/24 12:54 08/08/24 13:20 Pantoprazole Sodium 40 Mg Vial IVP 08/08/24 12:55 40 mg ONCE ONE Administration Potassium Chloride 40 meq 08/08/24 16:59 08/08/24 17:42 Potassium Chloride 20 Meq Tab PO 08/08/24 17:00 40 meq ONCE ONE Administration Vital Signs: Temp Pulse Resp BP Pulse Ox 08/08/24 14:31 112 H 19 119/82 100 08/08/24 12:19 98.1 F 124 H 28 H 86/62 L 97 Discharge Plan Discharge Patient Disposition: PLACED OBSERVATION Discharge Problem: Abdominal pain, Acute kidney injury Did you review [place] PUBLICATION DESIGNER for ALL controlled substances?: Not Applicable ED Provider: MANGO VÁSQUEZ Condition: Fair Physician Progress Note: Discussed with hospitalist Osvaldo and will admit OBS. Patient continued to have tachycardia but feeling a lot better. CT noted. Office did say he tend to be non-compliant with recommendation
[2024-08-08 13:26] LABS: ALANINE AMINOTRANSFERASE 80.1 U/L (0-50); ALBUMIN 4.85 g/dL (3.5-5.0); ALKALINE PHOSPHATASE 71.4 U/L (56-119); ASPARTATE AMINO TRANSFERASE 50.3 U/L (17-59); BILIRUBIN,TOTAL 0.76 mg/dL (0.2-1.3); BLOOD UREA NITROGEN 35.9 mg/dL (9-20); CALCIUM 9.78 mg/dL (8.4-10.2); CARBON DIOXIDE 25.6 mmol/L (22-30.0); CHLORIDE 90.3 mmol/L (98-107); CREATININE 3.07 mg/dL (0.60-1.10); GLUCOSE 223.2 mg/dL (74-106); LIPASE 72.2 U/L (23-300); MAGNESIUM 1.05 mg/dL (1.6-2.3); POTASSIUM 3.19 mmol/L (3.5-5.1); TOTAL PROTEIN 7.95 g/dL (6.3-8.2)
[2024-08-08] MEDS: LACTATED RINGERS 1,000 ML IV ONE ×2 (13:34→17:46)
[2024-08-08] MEDS ORDERED: BENADRYL 25 MG in SODIUM CHLORIDE 100ML 100 ML IV STA (13:35)
[2024-08-08 13:37] LABS: TROPONIN I 0.101 ng/ml (0.0000-0.120)
[2024-08-08] MEDS: ALBUTEROL 0.083% NEB NEB ONE (13:40)
[2024-08-08] MEDS: BENADRYL IVP STA (13:44)
[2024-08-08] MEDS: SOLU-MEDROL 40 MG IVP ONE (13:44)
--- NOTE | 2024-08-08 13:45 | DI ---
EXAM: CHEST, SINGLE VIEW HISTORY: Dyspnea. COMPARISON: Chest radiograph 01/30/2022. FINDINGS: Heart size within normal limits. Vascular calcifications and mild tortuosity of the thoracic aorta. No pleural effusion or pneumothorax. Minimal left lung base airspace opacities could represent atel ectasis versus pneumonia and correlation with clinical presentation is recommended. No lobar consoli dation. Emphysematous changes of the lungs with minimal biapical scarring. IMPRESSION: Minimal left lung base airspace opacities may represent atelectasis though correlation for signs of i nfection/pneumonia is recommended. Recommend short-term follow-up radiographs with PA and lateral vi ews. Emphysematous changes of the lungs with minimal biapical scarring.
--- NOTE | 2024-08-08 14:45 | CT ---
EXAM: CT ABDOMEN AND PELVIS WITHOUT CONTRAST HISTORY: Lower abdominal pain. Kidney failure. Vomiting blood today with progressively worsening sy mptoms. Heart failure. Previous appendectomy. COMPARISON: Chest radiograph 08/08/2024. CT abdomen and pelvis 01/30/2022. TECHNIQUE: CT acquisition of the abdomen and pelvis from the lower thorax through the pelvis without IV contrast administration. Axial reconstructions with sagittal and coronal reformats were provided. Submitted images are mildly limited by patient motion artifact. IV contrast: None. Oral contrast: None. FINDINGS: Lower Thorax: Mild dependent atelectasis bilaterally. *Limited assessment of the solid organs of the abdomen due to the lack of intravenous contrast.* Liver: Within normal limits in size, morphology and attenuation. No definite lesion/mass. Scattered calcified granulomas. Biliary: Gallbladder is unremarkable. No hepatic or extrahepatic biliary ductal dilation. Pancreas: No definite lesion/mass or abnormal dilation of the main duct. No adjacent inflammation or fluid collection. Spleen: Within normal limits in size. No definite lesion/mass. Calcified granulomas. Adrenals: No mass. Kidneys/Ureters/Bladder: No mass, radiopaque calculus, or hydronephrosis/hydroureter. Mild bladder w all thickening may be related to incomplete distension. Correlate for signs of cystitis. GI Tract: There is wall thickening throughout the stomach most pronounced along the greater curvature as noted on previous imaging which could be related to underlying gastritis, though infiltrating mas s is not excluded on the basis of CT imaging. Correlation with results of previous workup is recomme nded. Mild distension and wall thickening of the distal esophagus with air-fluid levels concerning f or underlying esophagitis though infiltrative process is not excluded. Distension with air and fluid involving the distal stomach through the proximal duodenum may be related to gastroduodenitis. Ther e are are fluid filled but nondistended loops of proximal small bowel with scattered air-fluid levels which is nonspecific and could be seen in the setting of enteritis. No evidence of a high-grade bow el obstruction. It would the appendix is not visualized in keeping with previously provided history of appendectomy. No definite pneumatosis. Colonic diverticulosis without definite evidence of acute diverticulitis. Peritoneal Cavity: No free fluid or free air. Mild edema along the mesentery in the lower abdomen pe lvis is nonspecific. Retroperitoneum: No fluid collection. Lymph Nodes: Sub centimeter shawanda hepatis, mesenteric or retroperitoneal lymph nodes are not patholog ic by size criteria and overall similar in appearance. Vasculature: Limited assessment due to the lack of intravenous contrast. Extends aortic atherosclero tic calcifications. No aortic or iliac aneurysm. Small varicosities/collateral vessels within the an terior abdominal wall at the level of the pelvis through the inguinal region with similar appearance. Pelvis: No free fluid. Pelvic organs are grossly unremarkable. Bones/Soft Tissues: Chronic compression fracture of T12 with mild chronic compression fracture of L1. Similar appearance. Interbody spacer at L4/L5. Marked multilevel degenerative changes of the spin e. Grade 1 anterolisthesis at L5/S1 with chronic bilateral pars defects at L5. Mild to moderate deg enerative changes at the hips and bony pelvis. Visualized soft tissues are within normal limits. IMPRESSION: Gastric wall thickening and esophageal wall thickening could be related to marked gastritis/esophagit is though underlying mass/infiltrative process at the level of the stomach is not excluded as noted o n previous imaging. Correlation with previous workup is recommended. Further assessment with direct visualization/upper endoscopy is recommended given the clinical history. No evidence of a high-grade bowel obstruction. Findings concerning for gastroenteritis as detailed a aline. Minimal edema involving the mesentery in the lower abdomen pelvis is nonspecific. Sub-centimeter int ra-abdominal and intrapelvic lymph nodes are not pathologic by size criteria and may be reactive in n ature. Chronic diverticulosis without definite evidence of acute diverticulitis. Atherosclerotic vascular disease. Mild wall thickening of the urinary bladder may be related to incomplete distension. Correlate for s igns of cystitis. Additional chronic / degenerative changes as detailed above. All CT scans are performed using dose optimization techniques as appropriate to the performed exam an d include at least one of the following: Automated exposure control, adjustment of the mA and/or kV according t o size, and the use of iterative reconstruction technique.
[2024-08-08 15:55] LABS: BILIRUBIN,URINE 1+ (NEGATIVE); CLARITY,URINE Clear (CLEAR); COLOR,URINE Yellow (YELLOW); GLUCOSE, URINE (UA) Negative (NEGATIVE); KETONES,URINE 1+ (NEGATIVE); LEUKOCYTE ESTERASE ,URINE Negative (NEGATIVE); NITRITE,URINE Negative (NEGATIVE); PROTEIN,URINE 1+ (NEGATIVE); URINE, BLOOD Trace-intact (NEGATIVE); UROBILINOGEN,URINE 0.2 (0.2)
[2024-08-08 16:03] LABS: AMORPHOUS SEDIMENT,UR 2+ (NOT PRESENT)
[2024-08-08 16:04] LABS: HYALINE CASTS, URINE TNTC (NOT PRESENT)
[2024-08-08 16:05] LABS: RENAL EPITHELIAL CELLS,URINE 0-2 (NOT PRESENT)
[2024-08-08] MEDS: ROCEPHIN 1 GM/50 ML D5W 1 GM/50 ML BAG IV ONE (16:45)
[2024-08-08] MEDS ORDERED: REGLAN IVP PRN (16:55)
[2024-08-08] MEDS ORDERED: TYLENOL PO PRN (16:55)
[2024-08-08] MEDS ORDERED: ZOFRAN 4 MG/2 ML IVP PRN (16:55)
[2024-08-08 17:23] LABS: SARS COV-2 RNA RAPID NAAT NEGATIVE (NEGATIVE)
[2024-08-08] MEDS: K-DUR PO ONE (17:42)
[2024-08-08] MEDS: MAGNESIUM SULF 2 G/50 ML BAG 2 GM/50 ML PIGGYBACK IV ONE ×2 (18:14→18:23)
[2024-08-08 20:04] VITALS: BMI 25.2
[2024-08-08] MEDS: FLAGYL 500 MG/100 ML 500 MG/100 ML BAG IV SCH (20:14)
[2024-08-08] MEDS: LYRICA PO SCH (21:16)
[2024-08-08] MEDS: VENTOLIN HFA IH PRN (21:17)
[2024-08-08] MEDS: NORCO 10-325 PO PRN (21:57)
[2024-08-09] MEDS: ATIVAN PO PRN ×2 (00:27→12:45)
[2024-08-09 05:41] LABS: BASOPHILS % (AUTO) 0.2 % (0.0-3.0); EOSINOPHILS % (AUTO) 0.1 % (0.0-7.0); HEMATOCRIT 29.6 % (42.0-52.0); HEMOGLOBIN 9.7 g/dl (14.0-18.0); IMMATURE GRANULOCYTE % (AUTO) 0.2 % (0.0-5.0); LYMPHOCYTES # (AUTO) 1.6 K/uL (0.60-3.4); LYMPHOCYTES % (AUTO) 17.4 (10.0-50.0); MEAN CORPUSCULAR HEMOGLOBIN 29.9 pg (27.0-31.0); MEAN CORPUSCULAR HGB CONC 32.8 (31.8-35.4); MEAN CORPUSCULAR VOLUME 91.4 fl (80.0-94.0); MONOCYTES # (AUTO) 0.6 K/uL (0.4-2.0); NEUTROPHILS # (AUTO) 6.7 K/ul (2.0-6.9); NEUTROPHILS % (AUTO) 75.1 % (42.2-75.2); PLATELET COUNT 111 10^3/uL (140-440); RDW COEFFICIENT OF VARIATION 14.2 % (11.6-14.8); RED BLOOD COUNT 3.24 10^6/ul (4.70-6.10); WHITE BLOOD COUNT 8.89 K/ul (4.2-10.2)
[2024-08-09 05:59] LABS: ALANINE AMINOTRANSFERASE 21.6 U/L (0-50); ALBUMIN 3.69 g/dL (3.5-5.0); ALKALINE PHOSPHATASE 57.6 U/L (56-119); ASPARTATE AMINO TRANSFERASE 45.1 U/L (17-59); BILIRUBIN,TOTAL 0.73 mg/dL (0.2-1.3); BLOOD UREA NITROGEN 43.7 mg/dL (9-20); CALCIUM 8.62 mg/dL (8.4-10.2); CARBON DIOXIDE 28.5 mmol/L (22-30.0); CHLORIDE 94.4 mmol/L (98-107); CREATININE 2.11 mg/dL (0.60-1.10); GLUCOSE 122.2 mg/dL (74-106); POTASSIUM 3.59 mmol/L (3.5-5.1); SODIUM 132.7 mmol/L (134.5-145); TOTAL PROTEIN 6.36 g/dL (6.3-8.2)
[2024-08-09] MEDS: LIPITOR PO SCH (08:38)
[2024-08-09] MEDS: LOPRESSOR PO SCH (08:38)
[2024-08-09] MEDS: ROCEPHIN 1 GM/50 ML D5W 1 GM/50 ML BAG IV SCH (08:39)
[2024-08-09] MEDS: PROTONIX IVP SCH (08:39)
[2024-08-09] MEDS: DUONEB NEB SCH (08:45)
[2024-08-09] MEDS: SOLU-MEDROL 40 MG IVP SCH (08:55)
[2024-08-09] MEDS: LACTATED RINGERS 1,000 ML IV SCH (10:42)
[2024-08-09] MEDS: ZITHROMAX PO SCH (12:40)
[2024-08-09] MEDS: THIAMINE PO SCH (12:40)
[2024-08-09] MEDS: FOLIC ACID PO SCH (12:40)
[2024-08-09] MEDS: MULTIVITAMIN TABLET PO SCH (12:41)
--- NOTE | 2024-08-09 12:51 | PCM ---
Date of Service Date Seen by Provider: 08/09/24 Time Seen by Provider: 08:40 Admit Day/Time Admission Date: 08/08/24 Reason for Admission Chief Complaint: NED, GASTRONENTERITIS Hospital Provider Hospital Provider: REJI ESTRADA, [facility] Primary Care Physician Primary Care Physician: CHIRAG JUDGE MD History of Present Illness History of Present Illness: 69 yo male presented to the ER with complaints of abdominal pain, nausea, vomiting, and diarrhea. Reports this started 2 days ago and persisted. Denies bloody vomitus or stool. Upon exam, patient audibly wheezing and difficulty answering questions due to m ild distress. States he also has been having trouble with sob intermittently. Uses albuterol at home but does not wear home oxygen. Requiring 2L via NC at this time. Denies fever, chills, chest pain, or other symptoms. Patient found to have gastroenteritis and underlying mass at the level of the stomach in which patient is aware of and does not wish to seek treatment for. Creatinine elevated at 3 with last result of 1.8 back in April of this year. Admitted to med/surg observation. Case Discussed With Case Discussed With: Patient's case was discussed with the ER Physicians, Dr. Rascon. [facility] Medical History DVT (deep venous thrombosis) left leg I82.409 - Acute embolism and thrombosis of unspecified deep veins of unspecified lower extremity (ICD-10) Syncope and collapse R55 - Syncope and collapse (ICD-10) Esophageal thickening K22.89 - Other specified disease of esophagus (ICD-10) Surgical History Hx of neck surgery Z98.890 - Other specified postprocedural states (ICD-10) Previous back surgery Z98.890 - Other specified postprocedural states (ICD-10) History of appendectomy Z90.49 - Acquired absence of other specified parts of digestive tract (ICD- 10) History of vein stripping Dr. Mendoza Z98.890 - Other specified postprocedural states (ICD-10) Family History FATHER Diabetes Hypertension Mother Diabetes Hypertension SISTER Diabetes BROTHER Diabetes Social History Smoking and tobacco status: Current every day smoker Tobacco type: cigarettes Smoking packs per day: 1 Smoking cigarettes per day: 20.0 Alcohol intake: current Alcohol intake frequency: 3 or more drinks per day Alcohol type: beer Substance use type: former substance user Special antonio needs: No Agree to transfusion: Yes Adopted: No Caregiver/support person: No Foster care: No Household members: none Housing: house Marital status: D Lives independently: Yes Number of children: 2 Highest education level completed: high school graduate Financial difficulty paying for basics: not very hard service: No half-way: No Current occupational status: disabled History of recent travel: No Do you think of yourself as: straight/heterosexual Current gender identity: male Seatbelt use: always Drives 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 Current diet type/program: regular Water heater temperature set < 120 degrees: Yes Working smoke detector in home: Yes Fire extinguisher in home: Yes Carbon monoxide detector in home: Yes What type of physical activity do you participate in?: walking Allergies Allergies Allergy/AdvReac Type Severity Reaction Status Date / Time codeine AdvReac Unknown Verified 08/08/24 12:31 Penicillins AdvReac Unknown Verified 08/08/24 12:31 Current Medications Home Medications pantoprazole 40 mg tablet,delayed release (Protonix) 40 mg PO BID #60 tabs 06/07/24 [Rx Confirmed 08/08/24 Last Taken 08/08/24 09:00 40 mg] albuterol sulfate 90 mcg/actuation aerosol inhaler 2 puff inhalation QID PRN shortness of breath or wheezing #8.5 grams 06/21/24 [Rx Confirmed 08/08/24 Last Taken 08/08/24 09:00 2 puff] atorvastatin 20 mg tablet (Lipitor) 20 mg PO QDAY #90 tabs 07/26/24 [Rx Confirmed 08/08/24 Last Taken 08/08/24 09:00 20 mg] metoprolol tartrate 50 mg tablet 50 mg PO QDAY #30 tabs 07/26/24 [Rx Confirmed 08/08/24 Last Taken 08/08/24 09:00 50 mg] pregabalin 100 mg capsule 100 mg PO BID 07/26/24 [History Confirmed 08/08/24 Last Taken 08/08/24 09:00 100 mg] hydrocodone 10 mg-acetaminophen 325 mg tablet 1 tab PO 2XD PRN pain 08/08/24 [History Confirmed 08/08/24 Last Taken 08/07/24 09:00 1 tab] Home Acetaminophen (Acetaminophen 325 Mg Tablet) 650 mg PO Q4H PRN PRN Reason: Mild Pain Hydrocodone Bitart/Acetaminophen (Hydrocodone Bit/Acetaminophen 10/325 Mg Tablet) 1 tab PO 2XD PRN PRN Reason: Pain Last Admin: 08/09/24 08:44 Dose: 1 tab Albuterol Sulfate (Albuterol Sulfate 8 Gm Inhaler) 2 puff IH QID PRN PRN Reason: Wheezing Last Admin: 08/08/24 21:17 Dose: 2 puff Albuterol/Ipratropium (Ipratropium/Albuterol Vial.Neb) 3 ml NEB RTQ4H BERNARDO Last Admin: 08/09/24 08:45 Dose: 3 ml Atorvastatin Calcium (Atorvastatin Calcium 20 Mg Tablet) 20 mg PO DAILY [facility] Last Admin: 08/09/24 08:38 Dose: 20 mg Azithromycin (Azithromycin 250 Mg Tablet) 500 mg PO DAILY BERNARDO Stop: 08/12/24 11:14 Last Admin: 08/09/24 12:40 Dose: 500 mg Folic Acid (Folic Acid 1 Mg Tablet) 1 mg PO DAILY [facility] Last Admin: 08/09/24 12:40 Dose: 1 mg Lactated Ringer's (Lactated Ringers) 1,000 mls @ 100 mls/hr IV .Q10H [facility] Last Admin: 08/09/24 10:43 Dose: 100 mls/hr CEFTRIAXONE/D5W 1 GM PREMIX (Rocephin 1 Gm/50 Ml D5w) 1 gm in 50 mls @ 100 mls/hr IV DAILY BERNARDO Stop: 08/12/24 08:59 Last Admin: 08/09/24 08:39 Dose: 100 mls/hr Lorazepam (Lorazepam 0.5 Mg Tablet) 0.5 mg PO ONCE PRN PRN Reason: Anxiety Last Admin: 08/09/24 00:27 Dose: 0.5 mg Lorazepam (Lorazepam 1 Mg Tablet) 1 mg PO Q2HR PRN PRN Reason: Withdrawal Last Admin: 08/09/24 12:45 Dose: 1 mg Methylprednisolone Sodium Succinate (Methylprednisolone Sod Succ/Pf 40 Mg/Ml Vial) 40 mg IVP Q8HR [facility] Last Admin: 08/09/24 12:45 Dose: 40 mg Metoclopramide HCl (Metoclopramide Hcl 10 Mg/2 Ml) 5 mg IVP Q6H PRN PRN Reason: Nausea / Vomiting Metoprolol Tartrate (Metoprolol Tartrate 50 Mg Tablet) 50 mg PO DAILY [facility] Last Admin: 08/09/24 08:38 Dose: 50 mg Multivitamins (Multivitamin 1 Tab) 1 tab PO DAILY [facility] Last Admin: 08/09/24 12:41 Dose: 1 tab Ondansetron HCl (Ondansetron Hcl/Pf 4 Mg/2 Ml Sdv) 4 mg IVP Q6H PRN PRN Reason: Nausea / Vomiting Pantoprazole Sodium (Pantoprazole Sodium 40 Mg Vial) 40 mg IVP DAILY [facility] Last Admin: 08/09/24 08:39 Dose: 40 mg Pregabalin (Pregabalin 50 Mg Capsule) 100 mg PO BID [facility] Last Admin: 08/09/24 08:38 Dose: 100 mg Thiamine HCl (Vitamin B-1 100 Mg Tablet) 100 mg PO DAILY [facility] Last Admin: 08/09/24 12:40 Dose: 100 mg Discontinued Medications Albuterol Sulfate (Albuterol Sulfate 0.083% Vial.Neb) 2.5 mg NEB ONCE ONE Stop: 08/08/24 13:28 Last Admin: 08/08/24 13:40 Dose: 2.5 mg Diphenhydramine HCl (Diphenhydramine Inj 50 Mg/Ml Vial) 25 mg IVP ONCE STA Stop: 08/08/24 13:39 Last Admin: 08/08/24 13:44 Dose: 25 mg Lactated Ringer's (Lactated Ringers) 1,000 mls @ 1,000 mls/hr IV BOLUS ONE Stop: 08/08/24 13:52 Last Admin: 08/08/24 13:34 Dose: Not Given Sodium Chloride (Sodium Chloride) 1,000 mls @ 1,000 mls/hr IV BOLUS ONE Stop: 08/08/24 13:59 Last Infusion: 08/08/24 14:13 Dose: Infused CEFTRIAXONE/D5W 1 GM PREMIX (Rocephin 1 Gm/50 Ml D5w) 1 gm in 50 mls @ 100 mls/hr IV ONCE ONE Stop: 08/08/24 16:45 Last Admin: 08/08/24 16:45 Dose: 100 mls/hr Lactated Ringer's (Lactated Ringers) 1,000 mls @ 1,000 mls/hr IV BOLUS ONE Stop: 08/08/24 17:18 Last Admin: 08/08/24 17:46 Dose: 1,000 mls/hr MAGNESIUM SULFATE IN WATER (Magnesium Sulf 2 G/50 Ml Bag) 2 gm in 50 mls @ 25 mls/hr IV ONCE ONE Stop: 08/08/24 18:53 Last Admin: 08/08/24 18:14 Dose: 25 mls/hr Metronidazole (Flagyl 500 Mg/100 Ml) 500 mg in 100 mls @ 100 mls/hr IV Q8HR BERNARDO Stop: 08/11/24 20:59 Last Admin: 08/09/24 04:20 Dose: 100 mls/hr Methylprednisolone Sodium Succinate (Methylprednisolone Sod Succ/Pf 40 Mg/Ml Via l) 40 mg IVP ONCE ONE Stop: 08/08/24 13:36 Last Admin: 08/08/24 13:44 Dose: 40 mg Ondansetron HCl (Ondansetron Hcl/Pf 4 Mg/2 Ml Sdv) 4 mg IVP ONCE ONE Stop: 08/08/24 12:55 Last Admin: 08/08/24 13:19 Dose: 4 mg Pantoprazole Sodium (Pantoprazole Sodium 40 Mg Vial) 40 mg IVP ONCE ONE Stop: 08/08/24 12:55 Last Admin: 08/08/24 13:20 Dose: 40 mg Potassium Chloride (Potassium Chloride 20 Meq Tab) 40 meq PO ONCE ONE Stop: 08/08/24 17:00 Last Admin: 08/08/24 17:42 Dose: 40 meq Opioid Naive vs. Tolerant Does Patient Take Opioids?: No Is Patient Opioid Naive?: Yes What is Opioid Naive?: *Opioid Naive implies the patient is not already taking opioids or not chronically receiving opioids on a daily basis. *PRN dosing is not "usually" associated with tolerance. *Patients are at higher risk of over-sedation and aspiration. Is Patient Opioid Tolerant?: No What is Opioid Tolerant?: *Opioid Tolerance implies less than the expected response to an opioid. *Acquired tolerance is defined by the patient taking 60mg of oral morphine daily (or equianalgesic dose of another opioid) for 1 week or more. *Often associated with chronic pain. *May take more than usual dose to achieve desired pain control. Review of Systems Constitutional: Reports Weakness Head: Reports Normocephalic Eyes: Reports No symptoms Ears: Reports No symptoms Nose: Reports No symptoms Mouth: Reports No symptoms Throat: Reports No symptoms Cardiovascular: Reports No symptoms Respiratory: Reports Cough and Shortness of air Gastrointestinal: Reports Nausea, Vomiting and Diarrhea Genitourinary: Reports No Symptoms Musculoskeletal: Reports No symptoms Endocrine: Reports No symptoms Hematology: Reports No symptoms Immunology: Reports No symptoms Neurological: Reports No symptoms Psychiatric: Reports No symptoms Physical examination Most Recent Vital Signs: Most Recent Vital Signs Temperature 97.3 F L 08/09/24 09:33 Temperature Source Temporal Artery Scan 08/09/24 09:33 Temperature Source Oral 08/08/24 12:19 Pulse Rate 105 H 08/09/24 09:33 Respiratory Rate 19 08/09/24 09:33 Blood Pressure 119/66 08/09/24 09:33 Blood Pressure Mean 83 08/09/24 09:33 Blood Pressure Left Arm 147/91 08/08/24 18:19 Blood Pressure Location Left Arm 08/09/24 09:33 Blood Pressure Position Sitting 08/09/24 09:33 O2 Sat by Pulse Oximetry 97 08/09/24 09:33 Oxygen Delivery Method Nasal Cannula 08/09/24 11:00 Oxygen Flow Rate 2 08/09/24 05:40 Height 6 ft 1 in 08/08/24 18:19 Weight 86.6 kg 08/08/24 18:19 Telemetry Type Remote Telemetry 08/09/24 07:00 Telemetry Monitoring Continues 08/09/24 07:00 Telemetry Heart Rate 87 08/09/24 07:00 Telemetry SPO2 97 08/09/24 07:00 EKG KS Interval 0.16 08/09/24 07:00 EKG QRS Interval 0.08 08/09/24 07:00 Telemetry Strip Reading Sinus Arrhythmia 08/09/24 07:00 Appearance: Positive No Apparent Distress and Alert and Oriented x3 Skin: Positive Warm and Good Turgor HEENT: Positive Normocephalic and PERRLA Neck: Positive Supple and Midline Trachea Chest/Lungs: Positive Symmetrical With Equal Breath Sounds and Wheezes (throughout lung burleson, diminished) Heart: Positive RRR and Pulses Normal GI/: Positive Soft, Nontender, Bowel Sounds Normal and No Distention Musculoskeletal: Positive Not Examined Extremities: Positive Intact Peripheral Pulses, Stable Joints Without Laxity, Good ROM in All Joints and Other Neurological: Positive Sensation Intact, Motor intact, Alert and Oriented Labs This Visit Labs This Visit: Labs This Visit 08/08/24 08/08/24 08/08/24 12:58 13:06 15:40 WBC 11.51 H RBC 4.41 L Hgb 13.2 L Hct 41.3 L MCV 93.7 MCH 29.9 MCHC 32.0 RDW Coeff of Delia 13.8 Plt Count 242 Immature Gran % (Auto) 0.2 Neut % (Auto) 91.7 H Lymph % (Auto) 5.2 L Davidson % (Auto) 2.8 Eos % (Auto) 0.0 Baso % (Auto) 0.1 Neut # (Auto) 10.6 H Lymph # (Auto) 0.6 Davidson # (Auto) 0.3 L Eos # (Auto) 0.0 Baso # (Auto) 0.0 Immature Gran # (Auto) 0.0 Sodium 138.0 Potassium 3.19 L Chloride 90.3 L Carbon Dioxide 25.6 Anion Gap 25.29 BUN 35.9 H Creatinine 3.07 H Estimated GFR (MDRD) 20.00 BUN/Creatinine Ratio 11.69 Glucose 223.2 H Lactic Acid 6.70 H Calcium 9.78 Magnesium 1.05 L Total Bilirubin 0.76 AST 50.3 ALT 80.1 H Alkaline Phosphatase 71.4 Troponin I 0.101 NT-Pro-B Natriuret Pep 1570 H Total Protein 7.95 Albumin 4.85 Globulin 3.10 Albumin/Globulin Ratio 1.56 Lipase 72.2 Procalcitonin 0.33 H Urine Color Yellow Urine Clarity Clear Urine pH 5.0 Ur Specific [place] >=1.030 Urine Protein 1+ H Urine Glucose (UA) Negative Urine Ketones 1+ H Urine Blood Trace-intact H Urine Nitrite Negative Urine Bilirubin 1+ H Urine Urobilinogen 0.2 Ur Leukocyte Esterase Negative Urine Microscopic RBC 2-5 Ur Squamous Epith Cells Not Reportable Ur Renal Epithelial Cell 0-2 Amorphous Sediment 2+ Hyaline Casts Tntc SARS CoV-2 RNA Rapid ARCHIE 08/08/24 08/08/24 08/09/24 16:35 17:08 05:32 WBC 8.89 RBC 3.24 L Hgb 9.7 L D Hct 29.6 L D MCV 91.4 MCH 29.9 MCHC 32.8 RDW Coeff of Delia 14.2 Plt Count 111 L D Immature Gran % (Auto) 0.2 Neut % (Auto) 75.1 Lymph % (Auto) 17.4 Davidson % (Auto) 7.0 Eos % (Auto) 0.1 Baso % (Auto) 0.2 Neut # (Auto) 6.7 Lymph # (Auto) 1.6 Davidson # (Auto) 0.6 Eos # (Auto) 0.0 Baso # (Auto) 0.0 Immature Gran # (Auto) 0.0 Sodium 132.7 L Potassium 3.59 Chloride 94.4 L Carbon Dioxide 28.5 Anion Gap 13.39 BUN 43.7 H Creatinine 2.11 H D Estimated GFR (MDRD) 31.00 BUN/Creatinine Ratio 20.71 Glucose 122.2 H D Lactic Acid 3.41 H 0.70 Calcium 8.62 Magnesium Total Bilirubin 0.73 AST 45.1 ALT 21.6 D Alkaline Phosphatase 57.6 Troponin I NT-Pro-B Natriuret Pep Total Protein 6.36 Albumin 3.69 Globulin 2.67 Albumin/Globulin Ratio 1.38 Lipase Procalcitonin Urine Color Urine Clarity Urine pH Ur Specific [place] Urine Protein Urine Glucose (UA) Urine Ketones Urine Blood Urine Nitrite Urine Bilirubin Urine Urobilinogen Ur Leukocyte Esterase Urine Microscopic RBC Ur Squamous Epith Cells Ur Renal Epithelial Cell Amorphous Sediment Hyaline Casts SARS CoV-2 RNA Rapid ARCHIE Negative Imaging Imaging: EXAM: CT ABDOMEN AND PELVIS WITHOUT CONTRAST FINDINGS: Lower Thorax: Mild dependent atelectasis bilaterally. *Limited assessment of the solid organs of the abdomen due to the lack of intravenous contrast.* Liver: Within normal limits in size, morphology and attenuation. No definite lesion/mass. Scattered calcified granulomas. Biliary: Gallbladder is unremarkable. No hepatic or extrahepatic biliary ductal dilation. Pancreas: No definite lesion/mass or abnormal dilation of the main duct. No adjacent inflammation or fluid collection. Spleen: Within normal limits in size. No definite lesion/mass. Calcified granulomas. Adrenals: No mass. Kidneys/Ureters/Bladder: No mass, radiopaque calculus, or hydronephrosis/hydroureter. Mild bladder wall thickening may be related to incomplete distension. Correlate for signs of cystitis. GI Tract: There is wall thickening throughout the stomach most pronounced along the greater curvature as noted on previous imaging which could be related to underlying gastritis, though infiltrating mass is not excluded on the basis of CT imaging. Correlation with results of previous workup is recommended. Mild distension and wall thickening of the distal esophagus with air-fluid levels concerning for underlying esophagitis though infiltrative process is not excluded. Distension with air and fluid involving the distal stomach through the proximal duodenum may be related to gastroduodenitis. There are are fluid filled but nondistended loops of proximal small bowel with scattered air-fluid levels which is nonspecific and could be seen in the setting of enteritis. No evidence of a high-grade bowel obstruction. It would the appendix is not visualized in keeping with previously provided history of appendectomy. No definite pneumatosis. Colonic diverticulosis without definite evidence of acute diverticulitis. Peritoneal Cavity: No free fluid or free air. Mild edema along the mesentery in the lower abdomen pelvis is nonspecific. Retroperitoneum: No fluid collection. Lymph Nodes: Sub centimeter shawanda hepatis, mesenteric or retroperitoneal lymph nodes are not pathologic by size criteria and overall similar in appearance. Vasculature: Limited assessment due to the lack of intravenous contrast. Extends aortic atherosclerotic calcifications. No aortic or iliac aneurysm. Small varicosities/collateral vessels within the anterior abdominal wall at the level of the pelvis through the inguinal region with similar appearance. Pelvis: No free fluid. Pelvic organs are grossly unremarkable. Bones/Soft Tissues: Chronic compression fracture of T12 with mild chronic compression fracture of L1. Similar appearance. Interbody spacer at L4/L5. Marked multilevel degenerative changes of the spine. Grade 1 anterolisthesis at L5/S1 with chronic bilateral pars defects at L5. Mild to moderate degenerative changes at the hips and bony pelvis. Visualized soft tissues are within normal limits. IMPRESSION: Gastric wall thickening and esophageal wall thickening could be related to marked gastritis/esophagitis though underlying mass/infiltrative process at the level of the stomach is not excluded as noted on previous imaging. Correlation with previous workup is recommended. Further assessment with direct visualization/upper endoscopy is recommended given the clinical history. No evidence of a high-grade bowel obstruction. Findings concerning for gastroenteritis as detailed above. Minimal edema involving the mesentery in the lower abdomen pelvis is nonspecific. Sub-centimeter intra-abdominal and intrapelvic lymph nodes are not pathologic by size criteria and may be reactive in nature. Chronic diverticulosis without definite evidence of acute diverticulitis. Atherosclerotic vascular disease. Mild wall thickening of the urinary bladder may be related to incomplete distension. Correlate for signs of cystitis. Additional chronic / degenerative changes as detailed above. Review Statement Review Statement: I have independently reviewed and interpreted the labs/EKGs/imaging that were ordered by the ER provider. I have reviewed all outside records that are available currently in our EMR including imaging/notes/labs from previous visits. Plan Plan: 1. Acute Hypoxic Respiratory Failure in setting of COPD Exacerbation - wean oxygen as tolerated, steroids, nebs, rocephin and azith 2. COPD Exacerbation - rocephin and azith, steroids, nebs 3. Gastroenteritis - no further episodes of vomiting or diarrhea, tolerating PO, received 2 doses of flagyl 4. NED secondary to gastroenteritis - Improving, LR@100mL/hr, avoid nephrotoxins/hypotension 5. Underlying mass at level of stomach - Patient does not wish intervention 6. Alcohol abuse - CIWA per protocol, MVI, thiamine, and folic acid daily 7. Hypertension - chronic, continue home medications DVT Prophylaxis: Ambulation Time Spent: Greater than 80 minutes spent with patient, 50% of the time spent with this patient was devoted to counseling and coordination of care. Advanced Care Plannin minutes spent discussing advance care planning. Smoking Cessation: 3-10 minutes spent discussing smoking cessation. Disposition: Admit to: Med/surg Observation, admit to inpatient due to likely need for >48 hours of care Discussed Plan of Care with Dr. Amanda Judge. Medications Medication Orders: Medications Ordered Category Date Time Status Acetaminophen [Tylenol] Meds 08/08/24 16:55 Active 650 mg PO Q4H PRN Albuterol Sulfate [Ventolin Hfa] Meds 08/08/24 20:43 Active 2 puff IH QID PRN Atorvastatin Calcium [Lipitor] Meds 08/09/24 09:00 Active 20 mg PO DAILY Azithromycin [Zithromax] Meds 08/09/24 11:15 Active 500 mg PO DAILY Ceftriaxone/D5w 1 gm Premix [Rocephin 1 gm/50 ml D5w] Meds 08/09/24 09:00 Active 1 gm in 50 ml IV DAILY Folic Acid Meds 08/09/24 11:10 Active 1 mg PO DAILY Hydrocodone Bit/Acetaminophen [[place] 10-325] Meds 08/08/24 20:43 Active 1 tab PO 2XD PRN Ipratropium/Albuterol Neb [Duoneb] Meds 08/09/24 10:00 Active 3 ml NEB RTQ4H Lorazepam [Ativan] Meds 08/08/24 21:53 Active 0.5 mg PO ONCE PRN Lorazepam [Ativan] Meds 08/09/24 11:05 Active 1 mg PO Q2HR PRN Methylprednisolone Sod Succ/Pf [Solu-Medrol 40 mg] Meds 08/09/24 09:00 Active 40 mg IVP Q8HR Metoclopramide HCl [Reglan] Meds 08/08/24 16:55 Active 5 mg IVP Q6H PRN Metoprolol Tartrate [Lopressor] Meds 08/09/24 09:00 Active 50 mg PO DAILY Multivitamin [Multivitamin Tablet] Meds 08/09/24 11:10 Active 1 tab PO DAILY Ondansetron HCl/Pf [Zofran 4 mg/2 ml] Meds 08/08/24 16:55 Active 4 mg IVP Q6H PRN Pantoprazole Sodium [Protonix] Meds 08/09/24 09:00 Active 40 mg IVP DAILY Pregabalin [Lyrica] Meds 08/08/24 21:00 Active 100 mg PO BID Ringers Lactated Solution [Lactated Ringers] 1,000 ml Meds 08/08/24 17:00 Active IV 100 mls/hr Vitamin B-1 [Thiamine] Meds 08/09/24 11:10 Active 100 mg PO DAILY
--- NOTE | 2024-08-09 14:09 | RS.SWEVAL ---
Subjective Date of Evaluation: 08/09/24 Diagnosis: gastronenteritis Current Level of Function: Pt admitted to hospital with gastronenteritis. He also has a history of esophageal thickening. Patient does complain of throat pain and pain when swallowing. Current Diet: regular Current Subjective/complaints:: Difficulty swallowing Medical History Comments:: see medical chart for detailed history General Information General Patient Orientation: Person, Place, Time and Situation Ability to Follow Directions: Excellent Oral Expression Ability: No Impairment Oral-Facial Assessment Face Facial Symmetry: Symmetrical Dental/Labial Mouth Occlusion: Normal Teeth Characteristics: Intact/Normal Lingual Protrusion: Normal Retraction: Normal Tip Lateralization: Normal Food Presentation Solids Food Presented: Regular Behaviors/Comments: observed with lunch tray. He had difficulty with items and was observed to cough multiple times. Liquids Liquid Presented: Thin Behaviors/Comments: no s/s of aspiration observed Recommendations: Dysphagia Evaluation Dietary Recommendations: Minced and Moist and Thin Comments:: Discussed diet recommendation with patient and he was in agreement to try it Dysphagia Swallow Precautions/Strategies: Sitting Upright (90 deg), Small Bites and Sips and Alternate Liquids/Solids Summary Dysphagia Evaluation Summary: Pt was observed with lunch tray or regular diet. Due to difficulty observed during the meal and patient report of difficulty, it is recommended that he change his diet to mechanical soft with mince and moist. Further Therapy Indicated?: Yes Rehab Potential: Good Short Term Goals Goal #1: Patient will follow safe swallow precautions to safely consume diet. Goal #2: Patient will tolerate mechanical soft diet. Custodial Goals Goal #1: Patient will safely tolerate least restrictive diet. Plan Frequency of Treatment: 1-2 X day, as tolerated Treatment Code (1) Dysphagia: Code(s): R13.10 - Dysphagia, unspecified Qualifiers: Dysphagia type: pharyngoesophageal phase Qualified Code(s): R13.14 - Dysphagia, pharyngoesophageal phase
--- NOTE | 2024-08-09 21:59 | DCSUM ---
Hospital Provider Hospital [facility] Primary Care Physician: CHIRAG RAZA MD Hospital Course Vital Signs: Most Recent Vital Signs Temperature 98 F 08/09/24 17:59 Temperature Source Tympanic 08/09/24 17:59 Temperature Source Oral 08/08/24 12:19 Pulse Rate 82 08/09/24 17:59 Respiratory Rate 19 08/09/24 17:59 Blood Pressure 143/70 H 08/09/24 17:59 Blood Pressure Mean 94 08/09/24 17:59 Blood Pressure Left Arm 147/91 08/08/24 18:19 Blood Pressure Location Left Arm 08/09/24 17:59 Blood Pressure Position Sitting 08/09/24 17:59 O2 Sat by Pulse Oximetry 93 L 08/09/24 17:59 Oxygen Delivery Method Room Air 08/09/24 20:00 Oxygen Flow Rate 2 08/09/24 14:05 Height 6 ft 1 in 08/08/24 18:19 Weight 86.6 kg 08/08/24 18:19 Telemetry Type Remote Telemetry 08/09/24 19:00 Telemetry Monitoring Continues 08/09/24 19:00 Telemetry Heart Rate 87 08/09/24 19:00 Telemetry SPO2 97 08/09/24 07:00 EKG SD Interval 0.17 08/09/24 19:00 EKG QRS Interval 0.07 08/09/24 19:00 Telemetry Strip Reading SR W/ PVCS 08/09/24 19:00 Lab Results Last 24 Hours: 08/09/24 05:32 WBC 8.89 RBC 3.24 L Hgb 9.7 L D Hct 29.6 L D MCV 91.4 MCH 29.9 MCHC 32.8 RDW Coeff of Delia 14.2 Plt Count 111 L D Immature Gran % (Auto) 0.2 Neut % (Auto) 75.1 Lymph % (Auto) 17.4 [place] % (Auto) 7.0 Eos % (Auto) 0.1 Baso % (Auto) 0.2 Neut # (Auto) 6.7 Lymph # (Auto) 1.6 [place] # (Auto) 0.6 Eos # (Auto) 0.0 Baso # (Auto) 0.0 Immature Gran # (Auto) 0.0 Sodium 132.7 L Potassium 3.59 Chloride 94.4 L Carbon Dioxide 28.5 Anion Gap 13.39 BUN 43.7 H Creatinine 2.11 H D Estimated GFR (MDRD) 31.00 BUN/Creatinine Ratio 20.71 Glucose 122.2 H D Lactic Acid 0.70 Calcium 8.62 Total Bilirubin 0.73 AST 45.1 ALT 21.6 D Alkaline Phosphatase 57.6 Total Protein 6.36 Albumin 3.69 Globulin 2.67 Albumin/Globulin Ratio 1.38 Discharge Instructions Discharge Planning: Discharge Planning > 40 minutes If patient is discharged with left ventricular systolic dysfunction: Discharged with a beta tali? [] If no, why not? [] Discharged with an rohini/arb? [] If no, why not? [] Discharge Medications: Medications at Discharge (Home Meds & RX) pantoprazole 40 mg tablet,delayed release (Protonix) 40 mg PO BID #60 tabs 06/07/24 albuterol sulfate 90 mcg/actuation aerosol inhaler 2 puff inhalation QID PRN jordon rtness of breath or wheezing #8.5 grams 06/21/24 atorvastatin 20 mg tablet (Lipitor) 20 mg PO QDAY #90 tabs 07/26/24 metoprolol tartrate 50 mg tablet 50 mg PO QDAY #30 tabs 07/26/24 pregabalin 100 mg capsule 100 mg PO BID 07/26/24 hydrocodone 10 mg-acetaminophen 325 mg tablet 1 tab PO 2XD PRN pain 08/08/24 Discharge Plan Discharge Instructions: COPD (Chronic Obstructive Pulmonary Disease) (GEN) Patient Disposition: AMA Prescriptions: No Action pantoprazole [Protonix] 40 mg tablet,delayed release (DR/EC) 40 mg PO BID Qty: 60 3RF albuterol sulfate 90 mcg/actuation HFA aerosol inhaler 2 puff inhalation QID PRN (Reason: shortness of breath or wheezing) Qty: 8.5 3RF hydrocodone-acetaminophen 10-325 mg tablet 1 tab PO 2XD PRN (Reason: pain) pregabalin 100 mg capsule 100 mg PO BID atorvastatin [Lipitor] 20 mg tablet 20 mg PO QDAY Qty: 90 1RF metoprolol tartrate 50 mg tablet 50 mg PO QDAY Qty: 30 3RF Did you review [place] SL[place] for ALL controlled substances?: No Discussed opioids are addictive and Narcan is available by prescription or from pharmacy.: No Condition: Fair
[2024-08-10 05:27] LABS: HEMATOCRIT 27.8 % (42.0-52.0); HEMOGLOBIN 8.8 g/dl (14.0-18.0); IMMATURE GRANULOCYTE % (AUTO) 0.8 % (0.0-5.0); LYMPHOCYTES # (AUTO) 1.1 K/uL (0.60-3.4); LYMPHOCYTES % (AUTO) 22.4 (10.0-50.0); MEAN CORPUSCULAR HEMOGLOBIN 29.9 pg (27.0-31.0); MEAN CORPUSCULAR HGB CONC 31.7 (31.8-35.4); MEAN CORPUSCULAR VOLUME 94.6 fl (80.0-94.0); MONOCYTES # (AUTO) 0.5 K/uL (0.4-2.0); MONOCYTES % (AUTO) 10.6 (0-10); NEUTROPHILS # (AUTO) 3.2 K/ul (2.0-6.9); NEUTROPHILS % (AUTO) 66.2 % (42.2-75.2); PLATELET COUNT 96 10^3/uL (140-440); RDW COEFFICIENT OF VARIATION 13.8 % (11.6-14.8); RED BLOOD COUNT 2.94 10^6/ul (4.70-6.10); WHITE BLOOD COUNT 4.83 K/ul (4.2-10.2)
[2024-08-10 05:43] LABS: ALANINE AMINOTRANSFERASE 22.6 U/L (0-50); ALBUMIN 3.43 g/dL (3.5-5.0); ALKALINE PHOSPHATASE 55.8 U/L (56-119); ASPARTATE AMINO TRANSFERASE 44.9 U/L (17-59); BILIRUBIN,TOTAL 0.2 mg/dL (0.2-1.3); BLOOD UREA NITROGEN 43.4 mg/dL (9-20); CALCIUM 8.48 mg/dL (8.4-10.2); CARBON DIOXIDE 30.4 mmol/L (22-30.0); CREATININE 1.44 mg/dL (0.60-1.10); GLUCOSE 119.6 mg/dL (74-106); POTASSIUM 3.84 mmol/L (3.5-5.1); SODIUM 132.7 mmol/L (134.5-145); TOTAL PROTEIN 6.05 g/dL (6.3-8.2)
--- NOTE | 2024-08-10 09:54 | RS.DYSPHTX ---
Dysphagia Treatment Note Date of Note: 08/10/24 Time of Treatment: 08:30 Subjective: Patient was seen for skilled speech therapy. He was alert and finishing breakfast during the session. Total treatment time: 30 Short Term Goals Goal #1: Patient will follow safe swallow precautions to safely consume diet. Activity/Accuracy: discussed safe swallow techniques. Goal #2: Patient will tolerate mechanical soft diet. Activity/Accuracy: Reports he is tolerating diet. Mcfp Goals Goal #1: Patient will safely tolerate least restrictive diet. Assessment: Patient continues to complain about painful swallowing and sore throat. Units Charged Swallowing Therapy: 1
--- NOTE | 2024-08-10 12:30 | PCM.PROG ---
Date/Time Seen Date Seen by Provider: 08/10/24 Time Seen by Provider: 08:30 Provider Provider: REJI ESTRADA, [facility] Chief Complaint Chief Complaint: NED, GASTRONENTERITIS Subjective Subjective: Became agitated last night and wanted to leave AMA. Daughter came and talked him out of it. Discussed labs this am and patient agreeable to stay 1 more day for IV fluids. Feeling some better. Objective Appearance: Positive No Apparent Distress and Alert and Oriented x3 Chest/Lungs: Positive Symmetrical With Equal Breath Sounds, Clear to Auscultation Bilaterally and Good Air Movement all 4 Lung Orta Heart: Positive RRR and Pulses Normal GI/: Positive Soft, Nontender, Bowel Sounds Normal and No Distention Musculoskeletal: Positive Not Examined Neurological: Positive Sensation Intact, Motor intact, Alert and Oriented Vital Signs Vital Signs: Vital Signs: Last 24 Hours 08/09/24 13:00 08/09/24 13:54 08/09/24 14:05 Temperature 97.8 F Temperature Source Tympanic Pulse Rate 78 Respiratory Rate 18 Blood Pressure 102/67 Blood Pressure Mean 78 Blood Pressure Location Right Arm Blood Pressure Position Sitting O2 Sat by Pulse Oximetry 97 99 Oxygen Delivery Method Nasal Cannula Nasal Cannula Oxygen Flow Rate 2 Telemetry Type Remote Telemetry Telemetry Monitoring Continues Telemetry Heart Rate 78 EKG WI Interval 0.17 EKG QRS Interval 0.06 Telemetry Strip Reading SR w/ PVC 08/09/24 17:59 08/09/24 19:00 08/09/24 20:00 Temperature 98 F Temperature Source Tympanic Pulse Rate 82 Respiratory Rate 19 Blood Pressure 143/70 H Blood Pressure Mean 94 Blood Pressure Location Left Arm Blood Pressure Position Sitting O2 Sat by Pulse Oximetry 93 L Oxygen Delivery Method Nasal Cannula Room Air Oxygen Flow Rate Telemetry Type Remote Telemetry Telemetry Monitoring Continues Telemetry Heart Rate 87 EKG WI Interval 0.17 EKG QRS Interval 0.07 Telemetry Strip Reading SR W/ PVCS 08/09/24 22:00 08/10/24 01:00 08/10/24 05:17 Temperature 97.9 F 97.8 F Temperature Source Temporal Artery Scan Temporal Artery Scan Pulse Rate 83 76 Respiratory Rate 20 20 Blood Pressure 87/54 L 81/45 L Blood Pressure Mean 65 57 Blood Pressure Location Right Arm Right Arm Blood Pressure Position Supine Supine O2 Sat by Pulse Oximetry 95 96 Oxygen Delivery Method Room Air Room Air Oxygen Flow Rate Telemetry Type Telemetry Monitoring Telemetry Heart Rate EKG WI Interval EKG QRS Interval Telemetry Strip Reading REFUSES 08/10/24 05:43 08/10/24 07:00 08/10/24 07:26 Temperature Temperature Source Pulse Rate Respiratory Rate Blood Pressure Blood Pressure Mean Blood Pressure Location Blood Pressure Position O2 Sat by Pulse Oximetry 94 L Oxygen Delivery Method Room Air Room Air Oxygen Flow Rate Telemetry Type Telemetry Monitoring Telemetry Heart Rate EKG WI Interval EKG QRS Interval Telemetry Strip Reading refused 08/10/24 10:00 08/10/24 10:00 Temperature 98 F Temperature Source Temporal Artery Scan Pulse Rate 88 Respiratory Rate 20 Blood Pressure 162/79 H Blood Pressure Mean 106 Blood Pressure Location Left Arm Blood Pressure Position Supine O2 Sat by Pulse Oximetry 95 Oxygen Delivery Method Room Air Room Air Oxygen Flow Rate Telemetry Type Telemetry Monitoring Telemetry Heart Rate EKG WI Interval EKG QRS Interval Telemetry Strip Reading Lab Results Lab Results: Lab Results: Last 24 Hours 08/10/24 05:19 WBC 4.83 RBC 2.94 L Hgb 8.8 L Hct 27.8 L MCV 94.6 H MCH 29.9 MCHC 31.7 L RDW Coeff of Delia 13.8 Plt Count 96 L Immature Gran % (Auto) 0.8 Neut % (Auto) 66.2 Lymph % (Auto) 22.4 [place] % (Auto) 10.6 H Eos % (Auto) 0.0 Baso % (Auto) 0.0 Neut # (Auto) 3.2 Lymph # (Auto) 1.1 [place] # (Auto) 0.5 Eos # (Auto) 0.0 Baso # (Auto) 0.0 Immature Gran # (Auto) 0.0 Sodium 132.7 L Potassium 3.84 Chloride 97.0 L Carbon Dioxide 30.4 H Anion Gap 9.14 BUN 43.4 H Creatinine 1.44 H D Estimated GFR (MDRD) 48.00 BUN/Creatinine Ratio 30.13 Glucose 119.6 H Calcium 8.48 Total Bilirubin 0.20 AST 44.9 ALT 22.6 Alkaline Phosphatase 55.8 L Total Protein 6.05 L Albumin 3.43 L Globulin 2.62 Albumin/Globulin Ratio 1.30 Additional Comments Additional Comments: I have independently reviewed and interpreted the labs/EKGs/imaging ordered during this hospital stay. I have reviewed outside records that are available in our EMR that pertain to medical stay including imaging/notes/labs from previous visits. Active Medications Active Medications: Medications Generic Name Dose Route Start Last Admin Trade Name Freq PRN Reason Stop Dose Admin Acetaminophen 650 mg 08/08/24 16:55 Acetaminophen 325 Mg Tablet PO Q4H PRN Mild Pain Hydrocodone Bitart/Acetaminophen 1 tab 08/08/24 20:43 08/09/24 23:44 Hydrocodone Bit/Acetaminophen 10/325 Mg Tablet PO 1 tab 2XD PRN Administration Pain Albuterol Sulfate 2 puff 08/08/24 20:43 08/08/24 21:17 Albuterol Sulfate 8 Gm Inhaler IH 2 puff QID PRN Administration Wheezing Albuterol/Ipratropium 3 ml 08/10/24 12:00 Ipratropium/Albuterol Vial.Neb NEB RTQ6H BERNARDO Atorvastatin Calcium 20 mg 08/09/24 09:00 08/10/24 09:04 Atorvastatin Calcium 20 Mg Tablet PO 20 mg DAILY BERNARDO Administration Azithromycin 500 mg 08/09/24 11:15 08/10/24 09:03 Azithromycin 250 Mg Tablet PO 08/12/24 11:14 500 mg DAILY BERNARDO Administration Folic Acid 1 mg 08/09/24 11:10 08/10/24 09:02 Folic Acid 1 Mg Tablet PO 1 mg DAILY BERNARDO Administration Lactated Ringer's 1,000 mls @ 100 mls/hr 08/08/24 17:00 08/10/24 05:42 Lactated Ringers IV 100 mls/hr .Q10H BERNARDO Administration CEFTRIAXONE/D5W 1 GM PREMIX 1 gm in 50 mls @ 100 mls/hr 08/09/24 09:00 08/10/24 09:04 Rocephin 1 Gm/50 Ml D5w IV 08/12/24 08:59 100 mls/hr DAILY BERNARDO Administration Lorazepam 0.5 mg 08/08/24 21:53 08/09/24 00:27 Lorazepam 0.5 Mg Tablet PO 0.5 mg ONCE PRN Administration Anxiety Lorazepam 1 mg 08/09/24 11:05 08/09/24 22:22 Lorazepam 1 Mg Tablet PO 1 mg Q2HR PRN Administration Withdrawal Methylprednisolone Sodium Succinate 40 mg 08/09/24 09:00 08/10/24 05:48 Methylprednisolone Sod Succ/Pf 40 Mg/Ml Vial IVP 40 mg Q8HR BERNARDO Administration Metoclopramide HCl 5 mg 08/08/24 16:55 Metoclopramide Hcl 10 Mg/2 Ml IVP Q6H PRN Nausea / Vomiting Metoprolol Tartrate 50 mg 08/09/24 09:00 08/09/24 08:38 Metoprolol Tartrate 50 Mg Tablet PO 50 mg DAILY BERNARDO Administration Multivitamins 1 tab 08/09/24 11:10 08/10/24 09:01 Multivitamin 1 Tab PO 1 tab DAILY BERNARDO Administration Ondansetron HCl 4 mg 08/08/24 16:55 Ondansetron Hcl/Pf 4 Mg/2 Ml Sdv IVP Q6H PRN Nausea / Vomiting Pantoprazole Sodium 40 mg 08/09/24 09:00 08/10/24 08:18 Pantoprazole Sodium 40 Mg Vial IVP 40 mg DAILY BERNARDO Administration Pregabalin 100 mg 08/08/24 21:00 08/10/24 09:02 Pregabalin 50 Mg Capsule PO 100 mg BID BERNARDO Administration Thiamine HCl 100 mg 08/09/24 11:10 08/10/24 09:04 Vitamin B-1 100 Mg Tablet PO 100 mg DAILY BERNARDO Administration Assessment (1) Dysphagia: Status: Acute Code(s): R13.10 - Dysphagia, unspecified SNOMED Code(s): 50711306 Plan Plan: 1. Acute Hypoxic Respiratory Failure in setting of COPD Exacerbation - Resolved, on RA today, contine steroids, nebs, rocephin and azith 2. COPD Exacerbation - Improving rocephin and azith, steroids, nebs 3. Gastroenteritis - Improved, no further episodes of vomiting or diarrhea, tolerating PO, received 2 doses of flagyl 4. NED secondary to gastroenteritis - Improving, LR@100mL/hr, avoid nephrotoxins/hypotension 5. Underlying mass at level of stomach - Patient does not wish intervention 6. Alcohol abuse - CIWA per protocol, MVI, thiamine, and folic acid daily 7. Hypertension - chronic, continue home medications Review Statement Review Statement: I have personally discussed and reviewed the patient's visit/currently labs/imaging/decision making with Dr. Judge, my supervising attending. Greater that 50 minutes spent with patient, 50% of the time spent with this patient was devoted to counseling and coordination of care.
[2024-08-10] MEDS: DUONEB NEB SCH (14:40)
[2024-08-10 17:28] LABS: H. PYLORI STOOL ANTIGEN NEGATIVE
[2024-08-10 21:11] VITALS: RESP 18
[2024-08-11 05:29] LABS: EOSINOPHILS % (AUTO) 0.2 % (0.0-7.0); HEMATOCRIT 27.6 % (42.0-52.0); HEMOGLOBIN 8.9 g/dl (14.0-18.0); IMMATURE GRANULOCYTE # (AUTO) 0.1 (0.0-1.0); IMMATURE GRANULOCYTE % (AUTO) 1.8 % (0.0-5.0); LYMPHOCYTES # (AUTO) 0.5 K/uL (0.60-3.4); MEAN CORPUSCULAR HEMOGLOBIN 30.2 pg (27.0-31.0); MEAN CORPUSCULAR HGB CONC 32.2 (31.8-35.4); MEAN CORPUSCULAR VOLUME 93.6 fl (80.0-94.0); MONOCYTES # (AUTO) 0.3 K/uL (0.4-2.0); MONOCYTES % (AUTO) 5.9 (0-10); NEUTROPHILS # (AUTO) 3.5 K/ul (2.0-6.9); NEUTROPHILS % (AUTO) 80.1 % (42.2-75.2); PLATELET COUNT 101 10^3/uL (140-440); RDW COEFFICIENT OF VARIATION 13.9 % (11.6-14.8); RED BLOOD COUNT 2.95 10^6/ul (4.70-6.10); WHITE BLOOD COUNT 4.42 K/ul (4.2-10.2)
[2024-08-11 05:38] VITALS: BP 144/96; PULSE 72; TEMP 97.6
[2024-08-11 05:42] LABS: ALBUMIN 3.38 g/dL (3.5-5.0); ALKALINE PHOSPHATASE 56.6 U/L (56-119); ASPARTATE AMINO TRANSFERASE 42.8 U/L (17-59); BILIRUBIN,TOTAL 0.25 mg/dL (0.2-1.3); BLOOD UREA NITROGEN 32.1 mg/dL (9-20); CALCIUM 8.56 mg/dL (8.4-10.2); CARBON DIOXIDE 31.3 mmol/L (22-30.0); CHLORIDE 97.5 mmol/L (98-107); CREATININE 1.06 mg/dL (0.60-1.10); GLUCOSE 159.5 mg/dL (74-106); POTASSIUM 4.35 mmol/L (3.5-5.1); SODIUM 133.3 mmol/L (134.5-145); TOTAL PROTEIN 6.06 g/dL (6.3-8.2)
--- NOTE | 2024-08-11 06:51 | DCSUM ---
Admission Date Admission Date: 08/08/24 Discharge Date Discharge Date: 08/11/24 Admission Diagnosis Admission Diagnosis: 1. Acute Hypoxic Respiratory Failure in setting of COPD Exacerbation 2. COPD Exacerbation 3. Gastroenteritis 4. NED secondary to gastroenteritis 5. Underlying mass at level of stomach 6. Alcohol abuse 7. Hypertension Discharge Diagnosis Discharge Diagnosis: 1. Acute Hypoxic Respiratory Failure in setting of COPD Exacerbation - Resolved 2. COPD Exacerbation - Improving, completed course of azith, Rx for augmentin sent 3. Gastroenteritis - Improved 4. NED secondary to gastroenteritis - Resolved 5. Underlying mass at level of stomach - Patient does not wish intervention 6. Alcohol abuse - chronic, no s/sx of withdrawal 7. Hypertension - Chronic, stable Hospital Provider Hospital Provider: REJI ESTRADA, [facility] Phys[place] Primary Care Physician: CHIRAG RAZA MD Summary of History and Physical Summary of History and Physical: 69 yo male presented to the ER with complaints of abdominal pain, nausea, vomiting, and diarrhea. Reports this started 2 days ago and persisted. Denies bloody vomitus or stool. Upon exam, patient audibly wheezing and difficulty answering questions due to mild distress. States he also has been having trouble with sob intermittently. Uses albuterol at home but does not wear home oxygen. Requiring 2L via NC at this time. Denies fever, chills, chest pain, or other symptoms. Patient found to have gastroenteritis and underlying mass at the level of the stomach in which patient is aware of and does not wish to seek treatment for. Creatinine elevated at 3 with last result of 1.8 back in April of this year. Admitted to med/surg observation. Hospital Course Subjective: During stay, patient was initially admitted for treatment of gastroenteritis and NED with IV fluids and nausea medications. Received flagyl and rocephin. Also found to be in COPD exacerbation. Treated with rocephin and azith, steroids, and nebs. Required 2L of oxygen initially. Weaned off and was on RA all day yesterday. Noted underlying mass at level of stomach - discussed with patient and does not wish intervention. Only wants treatment for "acute" problems. Hx of alcohol abuse. Was under [facility] protocol. No active signs of withdrawal noted. Given MVI, folic acid, and thiamine. No changes to home medications. D/c with augmentin. Appearance: Pleasant, No Apparent Distress and Alert HEENT: MMM, Supple and No JVD CVS: No Murmur Abdomen: Soft, Non-Tender and No Distention Respiratory: No Dyspnea Extremities: No Edema Vital Signs: Most Recent Vital Signs Temperature 97.6 F 08/11/24 05:36 Temperature Source Temporal Artery Scan 08/11/24 05:36 Temperature Source Oral 08/08/24 12:19 Pulse Rate 72 08/11/24 05:36 Respiratory Rate 18 08/11/24 05:36 Blood Pressure 144/96 H 08/11/24 05:36 Blood Pressure Mean 112 08/11/24 05:36 Blood Pressure Left Arm 147/91 08/08/24 18:19 Blood Pressure Location Right Arm 08/11/24 05:36 Blood Pressure Position Supine 08/11/24 05:36 O2 Sat by Pulse Oximetry 95 08/11/24 05:36 Oxygen Delivery Method Room Air 08/11/24 05:36 Oxygen Flow Rate 2 08/09/24 14:05 Height 6 ft 1 in 08/08/24 18:19 Weight 86.6 kg 08/08/24 18:19 Telemetry Type Remote Telemetry 08/09/24 19:00 Telemetry Monitoring Continues 08/09/24 19:00 Telemetry Heart Rate 87 08/09/24 19:00 Telemetry SPO2 97 08/09/24 07:00 EKG WA Interval 0.17 08/09/24 19:00 EKG QRS Interval 0.07 08/09/24 19:00 Telemetry Strip Reading refused 08/10/24 07:00 Imaging: EXAM: CT ABDOMEN AND PELVIS WITHOUT CONTRAST FINDINGS: Lower Thorax: Mild dependent atelectasis bilaterally. *Limited assessment of the solid organs of the abdomen due to the lack of intravenous contrast.* Liver: Within normal limits in size, morphology and attenuation. No definite lesion/mass. Scattered calcified granulomas. Biliary: Gallbladder is unremarkable. No hepatic or extrahepatic biliary ductal dilation. Pancreas: No definite lesion/mass or abnormal dilation of the main duct. No adjacent inflammation or fluid collection. Spleen: Within normal limits in size. No definite lesion/mass. Calcified granulomas. Adrenals: No mass. Kidneys/Ureters/Bladder: No mass, radiopaque calculus, or hydronephrosis/hydroureter. Mild bladder wall thickening may be related to incomplete distension. Correlate for signs of cystitis. GI Tract: There is wall thickening throughout the stomach most pronounced along the greater curvature as noted on previous imaging which could be related to underlying gastritis, though infiltrating mass is not excluded on the basis of CT imaging. Correlation with results of previous workup is recommended. Mild distension and wall thickening of the distal esophagus with air-fluid levels concerning for underlying esophagitis though infiltrative process is not excluded. Distension with air and fluid involving the distal stomach through the proximal duodenum may be related to gastroduodenitis. There are are fluid filled but nondistended loops of proximal small bowel with scattered air-fluid levels which is nonspecific and could be seen in the setting of enteritis. No evidence of a high-grade bowel obstruction. It would the appendix is not visualized in keeping with previously provided history of appendectomy. No definite pneumatosis. Colonic diverticulosis without definite evidence of acute diverticulitis. Peritoneal Cavity: No free fluid or free air. Mild edema along the mesentery in the lower abdomen pelvis is nonspecific. Retroperitoneum: No fluid collection. Lymph Nodes: Sub centimeter shawanda hepatis, mesenteric or retroperitoneal lymph nodes are not pathologic by size criteria and overall similar in appearance. Vasculature: Limited assessment due to the lack of intravenous contrast. Extends aortic atherosclerotic calcifications. No aortic or iliac aneurysm. Small varicosities/collateral vessels within the anterior abdominal wall at the level of the pelvis through the inguinal region with similar appearance. Pelvis: No free fluid. Pelvic organs are grossly unremarkable. Bones/Soft Tissues: Chronic compression fracture of T12 with mild chronic compression fracture of L1. Similar appearance. Interbody spacer at L4/L5. Marked multilevel degenerative changes of the spine. Grade 1 anterolisthesis at L5/S1 with chronic bilateral pars defects at L5. Mild to moderate degenerative changes at the hips and bony pelvis. Visualized soft tissues are within normal limits. IMPRESSION: Gastric wall thickening and esophageal wall thickening could be related to marked gastritis/esophagitis though underlying mass/infiltrative process at the level of the stomach is not excluded as noted on previous imaging. Correlation with previous workup is recommended. Further assessment with direct visualization/upper endoscopy is recommended given the clinical history. No evidence of a high-grade bowel obstruction. Findings concerning for gastroenteritis as detailed above. Minimal edema involving the mesentery in the lower abdomen pelvis is nonspecific. Sub-centimeter intra-abdominal and intrapelvic lymph nodes are not pathologic by size criteria and may be reactive in nature. Chronic diverticulosis without definite evidence of acute diverticulitis. Atherosclerotic vascular disease. Mild wall thickening of the urinary bladder may be related to incomplete distension. Correlate for signs of cystitis. Lab Results Last 24 Hours: 08/11/24 08/10/24 05:21 15:20 WBC 4.42 RBC 2.95 L Hgb 8.9 L Hct 27.6 L MCV 93.6 MCH 30.2 MCHC 32.2 RDW Coeff of Delia 13.9 Plt Count 101 L Immature Gran % (Auto) 1.8 Neut % (Auto) 80.1 H Lymph % (Auto) 12.0 [place] % (Auto) 5.9 Eos % (Auto) 0.2 Baso % (Auto) 0.0 Neut # (Auto) 3.5 Lymph # (Auto) 0.5 L [place] # (Auto) 0.3 L Eos # (Auto) 0.0 Baso # (Auto) 0.0 Immature Gran # (Auto) 0.1 Sodium 133.3 L Potassium 4.35 Chloride 97.5 L Carbon Dioxide 31.3 H Anion Gap 8.85 BUN 32.1 H Creatinine 1.06 Estimated GFR (MDRD) 69.00 BUN/Creatinine Ratio 30.28 Glucose 159.5 H Calcium 8.56 Total Bilirubin 0.25 AST 42.8 ALT 26.0 Alkaline Phosphatase 56.6 Total Protein 6.06 L Albumin 3.38 L Globulin 2.68 Albumin/Globulin Ratio 1.26 Stool H. pylori Ag Negative Discharge Instructions Discharge Planning: Discharge Planning > 40 minutes If patient is discharged with left ventricular systolic dysfunction: NA Discharged with a beta tali? [] If no, why not? [] Discharged with an rohini/arb? [] If no, why not? [] Diagnosis: Gastroenteritis, COPD exacerbation, Dehydration Diet: Regular, bland Activity: as tolerated Follow-up with PCP next week Medications: Lionel Discharge Medications: Medications at Discharge (Home Meds & RX) pantoprazole 40 mg tablet,delayed release (Protonix) 40 mg PO BID #60 tabs 06/07/24 albuterol sulfate 90 mcg/actuation aerosol inhaler 2 puff inhalation QID PRN shortness of breath or wheezing #8.5 grams 06/21/24 atorvastatin 20 mg tablet (Lipitor) 20 mg PO QDAY #90 tabs 07/26/24 metoprolol tartrate 50 mg tablet 50 mg PO QDAY #30 tabs 07/26/24 pregabalin 100 mg capsule 100 mg PO BID 07/26/24 hydrocodone 10 mg-acetaminophen 325 mg tablet 1 tab PO 2XD PRN pain 08/08/24 Discharge Plan Discharge Discharge Orders: Discharge Patient (ONCE); Ordered 08/11/24 Ordered By: NATAN HERNANDEZ Activity Restrictions/Additional Instructions: Diagnosis: Gastroenteritis, COPD exacerbation, Dehydration Diet: Regular, bland Activity: as tolerated Follow-up with PCP next week Medications: Lionel Instructions: Dehydration (GEN), Acute Kidney Injury (DC), Gastroenteritis (GEN), COPD (Chronic Obstructive Pulmonary Disease) (GEN) Patient Disposition: HOME WITH FAMILY CARE Prescriptions: New amoxicillin-pot clavulanate 875-125 mg tablet 1 tab PO BID Qty: 8 0RF Continued pantoprazole [Protonix] 40 mg tablet,delayed release (DR/EC) 40 mg PO BID Qty: 60 3RF albuterol sulfate 90 mcg/actuation HFA aerosol inhaler 2 puff inhalation QID PRN (Reason: shortness of breath or wheezing) Qty: 8.5 3RF hydrocodone-acetaminophen 10-325 mg tablet 1 tab PO 2XD PRN (Reason: pain) pregabalin 100 mg capsule 100 mg PO BID atorvastatin [Lipitor] 20 mg tablet 20 mg PO QDAY Qty: 90 1RF metoprolol tartrate 50 mg tablet 50 mg PO QDAY Qty: 30 3RF Did you review [place] LEVEL DESIGNER for ALL controlled substances?: No Discussed opioids are addictive and Narcan is available by prescription or from pharmacy.: No Condition: Fair Referrals: CHIRAG RAZA MD [Primary Care Provider] - 08/15/24 11:00 am
== END 2024-08-11 08:40 | disposition home or self-care (01) | DRG 190 ==
LOC: ED 12:14 → MEDSURG B 12:14
PROVIDERS: ADMIT Hospitalist; ATTEND Nurse Practitioner Family
DX: R06.02 Shortness of breath; F17.210 Nicotine dependence, cigarettes, uncomplicated; J44.1 Chronic obstructive pulmonary disease with (acute) exacerbation; R19.00 Intra-abdominal and pelvic swelling, mass and lump, unspecified site; Z99.81 Dependence on supplemental oxygen; R10.10 Upper abdominal pain, unspecified; E86.0 Dehydration; J96.01 Acute respiratory failure with hypoxia; K52.9 Noninfective gastroenteritis and colitis, unspecified; N17.9 Acute kidney failure, unspecified; I10 Essential (primary) hypertension

== ENCOUNTER 2025-07-25 12:20 | Observation (INO) ==
[2025-07-25 13:04] LABS: IMMATURE GRANULOCYTE # (AUTO) 0.0 (0.0-1.0); IMMATURE GRANULOCYTE % (AUTO) 0.3 % (0.0-5.0); RDW COEFFICIENT OF VARIATION 16.7 % (11.6-14.8)
--- NOTE | 2025-07-25 13:13 | DI ---
EXAM: CHEST RADIOGRAPH (1 VIEW) TECHNIQUE: Frontal Chest Radiograph. HISTORY: Chest pain/shortness of breath COMPARISON: 2023. FINDINGS: Lines, Tubes, Devices: None Lungs and Pleura: Hazy opacities in the left lower lung and right upper lung. No dense consolidation. No pleural effusion or pneumothorax. Cardiac silhouette: Normal. Bones: No acute abnormality. IMPRESSION: Hazy densities in the lungs, nonspecific. Correlate for pneumonitis/pneumonia, interstitial lung disease-lateral chronic lung disease. Clinical and imaging follow up to ensure resolution.
[2025-07-25 13:17] LABS: CREATININE 1.67 mg/dL (0.60-1.10)
[2025-07-25 13:19] LABS: INR 1.2 SI (0.0-3.9)
[2025-07-25] MEDS: SODIUM CHLORIDE 1,000 ML IV ONE (13:20)
[2025-07-25 13:27] LABS: MOLECULAR FLU A NEGATIVE BY NAAT (NEGATIVE); MOLECULAR FLU B NEGATIVE BY NAAT (NEGATIVE); SARS COV-2 RNA RAPID NAAT NEGATIVE (NEGATIVE)
[2025-07-25] MEDS: INFUVITE ADULT 10 ML in DEXTROSE 5%-NS IV SOLUTION 1,000 ML IV STA (13:29)
[2025-07-25] MEDS: FOLIC ACID 1 MG in SODIUM CHLORIDE 50 ML IV STA (13:30)
[2025-07-25] MEDS: MAGNESIUM SULFATE 1 GM/2 ML VIAL IVP ONE (13:36)
--- NOTE | 2025-07-25 13:38 | ED.PDOC ---
General [facility] ED Provider: Dr. PAT HAZEL DO Chief Complaint: Dizziness Stated Complaint: 70-year-old male presents to the ER from pain management with hypotension. He is being seen there routinely but noted to be hypotensive. Patient was also bradycardic. He does take beta-blockers. Denies any headache chest pain shortness of breath or abdominal pain. Does report generalized weakness. Denies recent illness or fever. History reviewed in chart. Notably patient also has documented history of chronic alcohol abuse. Patient is able to orient to place situation and time. When asked if he was getting shots for pain management, he stated that he was not really sure. He also was unable to confirm or deny a history of low blood pressure. His medical history also demonstrates a history of hypotension. Time Seen by Provider: 07/25/25 12:40 Information Source: Patient Nursing and Triage Documentation Reviewed and Agree: Yes Opioid Naive vs. Tolerant What is Opioid Naive?: *Opioid Naive implies the patient is not already taking opioids or not chronically receiving opioids on a daily basis. *PRN dosing is not "usually" associated with tolerance. *Patients are at higher risk of over-sedation and aspiration. What is Opioid Tolerant?: *Opioid Tolerance implies less than the expected response to an opioid. *Acquired tolerance is defined by the patient taking 60mg of oral morphine daily (or equianalgesic dose of another opioid) for 1 week or more. *Often associated with chronic pain. *May take more than usual dose to achieve desired pain control. Review of Systems Review Of Systems Constitutional: Reports No symptoms All Other Systems: Reviewed and Negative [facility] Medical History COPD exacerbation J44.1 - Chronic obstructive pulmonary disease with (acute) exacerbation (ICD-10) Dehydration E86.0 - Dehydration (ICD-10) Abdominal pain R10.9 - Unspecified abdominal pain (ICD-10) Acute kidney injury N17.9 - Acute kidney failure, unspecified (ICD-10) DVT (deep venous thrombosis) left leg I82.409 - Acute embolism and thrombosis of unspecified deep veins of unspecified lower extremity (ICD-10) Syncope and collapse R55 - Syncope and collapse (ICD-10) Esophageal thickening K22.89 - Other specified disease of esophagus (ICD-10) Family History FATHER Diabetes Hypertension Mother Diabetes Hypertension SISTER Diabetes BROTHER Diabetes Social History Smoking and tobacco status: Current every day smoker Tobacco type: cigarettes Smoking packs per day: 1 Smoking cigarettes per day: 20.0 Alcohol intake: current Alcohol intake frequency: 3 or more drinks per day Alcohol type: beer Substance use type: former substance user Special antonio needs: No Agree to transfusion: Yes Adopted: No Caregiver/support person: No Foster care: No Household members: none Housing: house Marital status: D Lives independently: Yes Number of children: 2 Highest education level completed: high school graduate Financial difficulty paying for basics: not very hard service: No retirement: No Current occupational status: disabled History of recent travel: No Do you think of yourself as: straight/heterosexual Current gender identity: male Seatbelt use: always Drives intoxicated or rides with intoxicated patient transportation driver: No Current diet type/program: regular Water heater temperature set < 120 degrees: Yes Working smoke detector in home: Yes Fire extinguisher in home: Yes Carbon monoxide detector in home: Yes What type of physical activity do you participate in?: walking Surgical History Hx of neck surgery Z98.890 - Other specified postprocedural states (ICD-10) Previous back surgery Z98.890 - Other specified postprocedural states (ICD-10) History of appendectomy Z90.49 - Acquired absence of other specified parts of digestive tract (ICD- 10) History of vein stripping Dr. Mendoza Z98.890 - Other specified postprocedural states (ICD-10) Physical Exam Physical Exam Appearance: Reports Well-appearing, No pain distress and Well-nourished Eyes: Reports CHRISTINE and EOMI ENT: Reports Oropharynx normal Neck: Supple Respiratory: Reports Airway patent, Breath sounds clear and Respirations nonlabored Cardiovascular: Reports RRR and Pulses normal GI/: Reports Soft and Nontender Musculoskeletal: Reports Normal strength and ROM intact Skin: Reports Warm, Dry and Normal color Neurological: Reports Sensation intact, Motor intact, Cranial nerves intact, Alert and Oriented Psychiatric: Reports Affect appropriate and Mood appropriate Interpretation EKG Interpretation EKG Interpretation By: ED Physician Time of EKG #1: 12:54 Rate: Jonn (59) Rhythm: Sinus Ectopy: None [place]: Left ST Segment: Normal Interpretation: Normal intervals, nonischemic Radiology Interpretation Radiology Interpretation By: Radiologist Radiology Results: Positive (Nonspecific hazy densities per radiology report) Exam Interpreted: Portable CXR Re-Evaluation Re-Evaluation Additional Comments: 70-year-old male presents to the ER with hypotension from pain management. He does not appear clinically intoxicated. He is hypotensive and mildly bradycardic. The bradycardia could be from his beta-blockade. He is afebrile and nontoxic in appearance and I doubt sepsis. His chronic alcohol use could be a part of this with the possibility of malnutrition or decreased oral intake. Denies headache chest pain or shortness of breath and have low suspicion for acute cardiopulmonary processes to include but not limited to ACS, CA, PE, pneumothorax, dissection or tamponade. As laboratory results are reviewed, he is noted to be hyponatremic as well as hypomagnesemic with an NED. I had already ordered a liter of IV fluids in addition to a banana bag with potassium supplement. This heightens my suspicion for effects of chronic alcohol use. Warnicke's encephalopathy remains on the differential. Will begin replacing the magnesium while giving the IV fluids. This should also help with the low sodium and chloride. Will likely recommend hospitalization after review of final workup. Will order CT of the head for further neurologic rule out with low suspicion for CVA, TIA, SAH, ICH, SDH. Further laboratory evaluation demonstrates a chronic leukopenia, anemia and thrombocytopenia. These were compared to prior labs on file Physician Progress Note Physician Progress Note: All EKGs and plain film imaging independently reviewed and interpreted by me unless stated otherwise. CTs interpreted by radiology unless otherwise stated. All pediatric patients are accompanied by parent or legal guardian as primary historian and/or validate patient report unless otherwise stated. Critical Care Note Critical Care Note Total Critical Care Time (mins): 100 Comments: Patient presented with hypotension which puts him at critical risk for hemodynamic/cardiac collapse. He is also found to have multiple electrolyte disturbances to include hyponatremia, hypomagnesemia, hypochloremia, chronic leukopenia, anemia and thrombocytopenia. These electrolyte abnormalities pose significant risk and including cardiac arrest and if not corrected appropriately as well as potential neurologic damage. This required multiple bedside reassessments, constant cardiac monitoring and telemetry, replacement of critical electrolytes and monitoring of cardiac output measures. Course Course 07/25/25 12:45 07/25/25 12:45 Orders, Labs, Meds: Lab Review 07/25/25 07/25/25 12:45 13:05 WBC 3.83 L RBC 3.50 L Hgb 9.2 L Hct 29.7 L MCV 84.9 MCH 26.3 L MCHC 31.0 L RDW Coeff of Delia 16.7 H Plt Count 125 L Immature Gran % (Auto) 0.3 Neut % (Auto) 44.0 Lymph % (Auto) 38.4 [place] % (Auto) 8.9 Eos % (Auto) 6.8 Baso % (Auto) 1.6 Neut # (Auto) 1.7 L Lymph # (Auto) 1.5 [place] # (Auto) 0.3 L Eos # (Auto) 0.3 Baso # (Auto) 0.1 Immature Gran # (Auto) 0.0 PT 12.4 H INR 1.20 APTT 19.0 L Sodium 127.1 L Potassium 4.34 Chloride 93.7 L Carbon Dioxide 24.4 Anion Gap 13.34 BUN 22.9 H Creatinine 1.67 H Estimated GFR (MDRD) 41.00 BUN/Creatinine Ratio 13.71 Glucose 97.8 Lactic Acid 1.59 Calcium 7.91 L Magnesium 0.72 L* Total Bilirubin 0.46 AST 36.8 ALT 12.9 Alkaline Phosphatase 46.9 L Troponin I < 0.012 NT-Pro-B Natriuret Pep 433 H Total Protein 7.03 Albumin 4.10 Globulin 2.93 Albumin/Globulin Ratio 1.39 Influ A Molecular Assay Negative by naat Influ B Molecular Assay Negative by naat SARS CoV-2 RNA Rapid ARCHIE Negative Orders Category Date Time Status EKG-(ED & IP/OBS ONLY) Stat CARDIO 07/25/25 12:41 Completed TELEMETRY MONITORING TELE CARE 07/25/25 14:21 Active IV [ED IV/MEDIPORT/POWERPORT] .ONCE EMERGENCY 07/25/25 12:41 Active BLOOD CULTURE (ED ONLY) Stat LAB 07/25/25 13:26 Received CBC W/ AUTO DIFF Stat LAB 07/25/25 12:45 Completed COMPREHENSIVE METABOLIC PANEL Stat LAB 07/25/25 12:45 Completed COVID [SARS COV-2 RNA RAPID ARCHIE] Stat LAB 07/25/25 13:05 Completed DRUG SCREEN (RAPID FOR ED) [DRUG SCREEN, URINE, RAPID] LAB 07/25/25 12:43 Uncollected Stat ED PROBNP [NT-PROBNP(ED)] Stat LAB 07/25/25 12:45 Completed FLU A & B MOLECULAR [FLU A/B MOLECULAR] Stat LAB 07/25/25 13:05 Completed LACTIC ACID Stat LAB 07/25/25 12:45 Completed MAGNESIUM Stat LAB 07/25/25 12:45 Completed PT WITH INR Stat LAB 07/25/25 12:45 Completed PTT [PARTIAL THROMBOPLASTIN TIME] Stat LAB 07/25/25 12:45 Completed TROPONIN I Stat LAB 07/25/25 12:45 Completed URINALYSIS C & S IF INDICATED Stat LAB 07/25/25 12:43 Uncollected 0.9 % Sodium Chloride [Saline Flush] Meds 07/25/25 12:41 Active 1 syr IVF PRN PRN Dextrose 5 % and 0.9 % NaCl [Dextrose 5%-Ns IV Solution Meds 07/25/25 12:59 Discontinued ] 1,000 ml Mvi, Adult No.1 with Vit K [Infuvite Adult] 10 ml IV 1,000 mls/hr Folic Acid 1 mg Meds 07/25/25 12:59 Discontinued 0.9 % Sodium Chloride [Sodium Chloride] 50 ml IV ONCE Magnesium Sulfate [Magnesium Sulfate 1 gm/2 ml Vial] Meds 07/25/25 13:26 Discontinued 1 gm IVP ONCE ONE Sodium Chloride 0.9% [Sodium Chloride] 1,000 ml Meds 07/25/25 12:41 Discontinued IV BOLUS Vitamin B-1 Inj [Thiamine] 100 mg Meds 07/25/25 12:59 Discontinued 0.9 % Sodium Chloride [Sodium Chloride] 50 ml IV ONCE CHEST, 1V AP ONLY Stat RADS 07/25/25 12:[address] HEAD W/O CONTRAST Stat RADS 07/25/25 13:38 Completed Medications Generic Name Dose Route Start Last Admin Trade Name Freq PRN Reason Stop Dose Admin Acetaminophen 650 mg 07/25/25 14:48 Acetaminophen 325 Mg Tablet PO Q4H PRN Mild Pain Hydrocodone Bitart/Acetaminophen 1 tab 07/25/25 15:45 Hydrocodone Bit/Acetaminophen 10/325 Mg Tablet PO Q6H PRN Pain Albuterol Sulfate 2 puff 07/25/25 15:45 Albuterol Sulfate 8 Gm Inhaler IH QID PRN Wheezing Atorvastatin Calcium 20 mg 07/26/25 09:00 Atorvastatin Calcium 20 Mg Tablet PO DAILY [facility] Escitalopram Oxalate 10 mg 07/26/25 09:00 Escitalopram Oxalate 10 Mg Tablet PO DAILY [facility] Ferrous Sulfate 324 mg 07/26/25 09:00 Ferrous Sulfate 324 Mg Tablet. PO DAILY BERNARDO Folic Acid 1 mg 07/26/25 09:00 Folic Acid 1 Mg Tablet PO DAILY [facility] Sodium Chloride 1,000 mls @ 100 mls/hr 07/25/25 15:00 07/25/25 16:02 Sodium Chloride IV 100 mls/hr .Q10H BERNARDO Administration Lorazepam 2 mg 07/25/25 14:48 Lorazepam 1 Mg Tablet PO Q1HR PRN Withdrawal Lorazepam 1 mg 07/25/25 14:48 Lorazepam 1 Mg Tablet PO Q2HR PRN Withdrawal Lorazepam 2 mg 07/25/25 14:48 Lorazepam Inj 2 Mg/Ml Vial IVP Q15MIN PRN Withdrawal Lorazepam 2 mg 07/25/25 14:48 Lorazepam Inj 2 Mg/Ml Vial IVP Q1HR PRN Withdrawal Lorazepam 1 mg 07/25/25 14:48 Lorazepam Inj 2 Mg/Ml Vial IVP Q2HR PRN Withdrawal Metoprolol Tartrate 50 mg 07/26/25 09:00 Metoprolol Tartrate 50 Mg Tablet PO DAILY [facility] Multivitamins 1 tab 07/26/25 09:00 Multivitamin 1 Tab PO DAILY [facility] Ondansetron HCl 4 mg 07/25/25 14:48 Ondansetron Hcl/Pf 4 Mg/2 Ml Sdv IVP Q6H PRN Nausea / Vomiting Pantoprazole Sodium 40 mg 07/25/25 17:00 07/25/25 16:02 Pantoprazole Sodium 40 Mg Tablet. PO 40 mg BIDAC2 BERNARDO Administration Pregabalin 100 mg 07/25/25 21:00 Pregabalin 50 Mg Capsule PO BID [facility] Sodium Chloride 1 syr 07/25/25 12:41 07/25/25 13:39 0.9% Sodium Chloride 10 Ml Disp.Syrin IVF 1 syr PRN PRN Administration To flush IV Thiamine HCl 100 mg 07/26/25 09:00 Vitamin B-1 100 Mg Tablet PO DAILY [facility] Discontinued Medications Generic Name Dose Route Start Last Admin Trade Name Freq PRN Reason Stop Dose Admin Sodium Chloride 1,000 mls @ 1,000 mls/hr 07/25/25 12:41 07/25/25 13:20 Sodium Chloride IV 07/25/25 13:40 Not Given BOLUS ONE Multivitamins/Minerals 10 ml/ 1,010 mls @ 1,000 mls/hr 07/25/25 12:59 07/25/25 15:04 Dextrose/Sodium Chloride IV 07/25/25 13:59 Infused .Q1H1M STA Infusion Folic Acid 1 mg/ Sodium 50.2 mls @ 100 mls/hr 07/25/25 12:59 07/25/25 13:30 Chloride IV 07/25/25 13:29 100 mls/hr ONCE STA Administration Thiamine HCl 100 mg/ Sodium 51 mls @ 100 mls/hr 07/25/25 12:59 07/25/25 14:20 Chloride IV 07/25/25 13:29 100 mls/hr ONCE STA Administration Magnesium Sulfate 1 gm 07/25/25 13:26 07/25/25 13:36 Magnesium Sulfate Vial 1 Gm/2 Ml Vial IVP 07/25/25 13:27 1 gm ONCE ONE Administration Vital Signs: Temp Pulse Resp BP Pulse Ox 07/25/25 12:31 62 81/58 L 07/25/25 12:30 63 96/62 07/25/25 12:22 98.3 F 63 20 100/68 100 AYANNA Risk Score AYANNA Risk Score: Risk Score Odds of by 30D 0 0.1 (0.1-0.2) 1 0.3 (0.2-0.3) 2 0.4 (0.3-0.5) 3 0.7 (0.6-0.9) 4 1.2 (1.0-1.5) 5 2.2 (1.9-2.6) 6 3.0 (2.5-3.6) 7 4.8 (3.8-6.1) Discharge Plan Discharge Patient Disposition: ADMITTED INPATIENT Discharge Problem: Pancytopenia, Acute hyponatremia, Hypomagnesemia, Hypochloremia, NED (acute kidney injury), Acute hypotension Did you review [place] [facility] for ALL controlled substances?: Not Applicable ED Provider: PAT HAZEL Condition: Stable
--- NOTE | 2025-07-25 14:09 | CT ---
EXAMINATION: HEAD CT WITHOUT CONTRAST HISTORY: Mental status change. TECHNIQUE: Noncontrast CT of the brain was performed with images acquired from skull base to vertex. 2-D coronal and sagittal reformatted images were obtained from the axial source images. CT Dose Reduction Techniques Performed: Yes. Contrast: None. COMPARISON: 01/29/22. FINDINGS: Intraparenchymal hemorrhage: None. Parenchyma: Normal light-white differentiation. No mass effect or midline shift. White matter is within normal limits for age. Ventricles/Extra-axial spaces and basal cisterns: No hydrocephalus or extraaxial fluid collections. Paranasal sinuses and mastoid air cells: Mild chronic paranasal sinus disease. Mastoid air cells are clear. Orbits: Normal visualized portions. Sella/Skull Base: Normal. Bones: Calvarium is normal. Scalp/Soft Tissues: Scalp and visualized soft tissues are normal. IMPRESSION: 1. No intracranial hemorrhage. 2. No acute findings. All CT scans are performed using dose optimization techniques as appropriate to the performed exam and include at least one of the following: Automated exposure control, adjustment of the mA and/or kV according to size, and the use of iterative reconstruction technique.
[2025-07-25] MEDS: THIAMINE 100 MG in SODIUM CHLORIDE 50 ML IV STA (14:20)
[2025-07-25] MEDS ORDERED: ATIVAN IVP PRN ×3 (14:48)
[2025-07-25] MEDS ORDERED: ZOFRAN SDV IVP PRN (14:48)
[2025-07-25] MEDS ORDERED: ATIVAN PO PRN ×2 (14:48)
--- NOTE | 2025-07-25 15:33 | PCM ---
Date of Service Date Seen by Provider: 07/25/25 Time Seen by Provider: 15:15 Admit Day/Time Admission Date: 07/25/25 Admission Time: 14:20 Reason for Admission Chief Complaint: LAO ELECTROLYTEMIA (NA,MG,CL) , NED Hospital Provider Hospital Provider: REJI ESTRADA, [facility] History of Present Illness History of Present Illness: 70 yo male with pmh of chronic back, alcoholism, COPD, and pancytopenia presented to the ER from pain management appointment for hypotension. Patient reports this morning has felt like a fog and doesn't really remember much. ER provider reports he went to his pain management appointment and reported just generalized not feeling well. SBP was in 70s-80s. Sent to ER for evaluation. BP continued to be low. Mild NED present. Sodium and mag low. Rest of labs at chronic level. Chest xray and head CT clear. Received 1L NS, 1L banana bag, and mag rider. Denies any complaints at this time. Feeling much better currently. Drinking a sprite and talking with staff. Denies any symptoms other than weakness prior to arrival. Admitted to med/surg observation. Case Discussed With Case Discussed With: Patient's case was discussed with the ER Physicians, Dr. Panchal. [facility] Medical History COPD exacerbation J44.1 - Chronic obstructive pulmonary disease with (acute) exacerbation (ICD-10) Dehydration E86.0 - Dehydration (ICD-10) Abdominal pain R10.9 - Unspecified abdominal pain (ICD-10) Acute kidney injury N17.9 - Acute kidney failure, unspecified (ICD-10) DVT (deep venous thrombosis) left leg I82.409 - Acute embolism and thrombosis of unspecified deep veins of unspecified lower extremity (ICD-10) Syncope and collapse R55 - Syncope and collapse (ICD-10) Esophageal thickening K22.89 - Other specified disease of esophagus (ICD-10) Surgical History Hx of neck surgery Z98.890 - Other specified postprocedural states (ICD-10) Previous back surgery Z98.890 - Other specified postprocedural states (ICD-10) History of appendectomy Z90.49 - Acquired absence of other specified parts of digestive tract (ICD- 10) History of vein stripping Dr. Mendoza Z98.890 - Other specified postprocedural states (ICD-10) Family History FATHER Diabetes Hypertension Mother Diabetes Hypertension SISTER Diabetes BROTHER Diabetes Social History Smoking and tobacco status: Current every day smoker Tobacco type: cigarettes Smoking packs per day: 1 Smoking cigarettes per day: 20.0 Alcohol intake: current Alcohol intake frequency: 3 or more drinks per day Alcohol type: beer Substance use type: former substance user Special antonio needs: No Agree to transfusion: Yes Adopted: No Caregiver/support person: No Foster care: No Household members: none Housing: house Marital status: D Lives independently: Yes Number of children: 2 Highest education level completed: high school graduate Financial difficulty paying for basics: not very hard service: No residential: No Current occupational status: disabled History of recent travel: No Do you think of yourself as: straight/heterosexual Current gender identity: male Seatbelt use: always Drives intoxicated or rides with intoxicated hi low truck driver: No Current diet type/program: regular Water heater temperature set < 120 degrees: Yes Working smoke detector in home: Yes Fire extinguisher in home: Yes Carbon monoxide detector in home: Yes What type of physical activity do you participate in?: walking Allergies Allergies Allergy/AdvReac Type Severity Reaction Status Date / Time codeine AdvReac Unknown Verified 07/25/25 12:28 Penicillins AdvReac Unknown Verified 07/25/25 12:28 Current Medications Home Medications Acetaminophen (Acetaminophen 325 Mg Tablet) 650 mg PO Q4H PRN PRN Reason: Mild Pain Folic Acid (Folic Acid 1 Mg Tablet) 1 mg PO DAILY BERNARDO Sodium Chloride (Sodium Chloride) 1,000 mls @ 100 mls/hr IV .Q10H BERNARDO Lorazepam (Lorazepam 1 Mg Tablet) 2 mg PO Q1HR PRN PRN Reason: Withdrawal Lorazepam (Lorazepam 1 Mg Tablet) 1 mg PO Q2HR PRN PRN Reason: Withdrawal Lorazepam (Lorazepam Inj 2 Mg/Ml Vial) 2 mg IVP Q15MIN PRN PRN Reason: Withdrawal Lorazepam (Lorazepam Inj 2 Mg/Ml Vial) 2 mg IVP Q1HR PRN PRN Reason: Withdrawal Lorazepam (Lorazepam Inj 2 Mg/Ml Vial) 1 mg IVP Q2HR PRN PRN Reason: Withdrawal Multivitamins (Multivitamin 1 Tab) 1 tab PO DAILY BERNARDO Ondansetron HCl (Ondansetron Hcl/Pf 4 Mg/2 Ml Sdv) 4 mg IVP Q6H PRN PRN Reason: Nausea / Vomiting Sodium Chloride (0.9% Sodium Chloride 10 Ml Disp.Syrin) 1 syr IVF PRN PRN PRN Reason: To flush IV Last Admin: 07/25/25 13:39 Dose: 1 syr Thiamine HCl (Vitamin B-1 100 Mg Tablet) 100 mg PO DAILY BERNARDO albuterol sulfate 90 mcg/actuation aerosol inhaler 2 puff inhalation QID PRN shortness of breath or wheezing #8.5 grams 12/20/24 [Rx Confirmed 07/25/25] Held on 07/25/25. Instructions: ran out a week ago pantoprazole 40 mg tablet,delayed release (Protonix) 40 mg PO BID #60 tabs 02/13/25 [Rx Confirmed 07/25/25] metoprolol tartrate 50 mg tablet 50 mg PO QDAY #30 tabs 02/28/25 [Rx Confirmed 07/25/25] atorvastatin 20 mg tablet (Lipitor) 20 mg PO QDAY #90 tabs 03/13/25 [Rx Confirmed 07/25/25] ferrous sulfate 325 mg (65 mg iron) tablet 325 mg PO QDAY #30 tabs 04/06/25 [Rx Confirmed 07/25/25] hydrocodone 10 mg-acetaminophen 325 mg tablet 1 tab PO Q6H PRN pain #120 tabs 06/19/25 [Rx Confirmed 07/25/25] escitalopram oxalate 10 mg tablet (Lexapro) 10 mg PO QDAY #30 tabs 07/03/25 [Rx Confirmed 07/25/25] pregabalin 100 mg capsule 100 mg PO BID #60 caps 07/03/25 [Rx Confirmed 07/25/25] Opioid Naive vs. Tolerant Does Patient Take Opioids?: Yes Is Patient Opioid Naive?: No What is Opioid Naive?: *Opioid Naive implies the patient is not already taking opioids or not chronically receiving opioids on a daily basis. *PRN dosing is not "usually" associated with tolerance. *Patients are at higher risk of over-sedation and aspiration. Is Patient Opioid Tolerant?: No What is Opioid Tolerant?: *Opioid Tolerance implies less than the expected response to an opioid. *Acquired tolerance is defined by the patient taking 60mg of oral morphine daily (or equianalgesic dose of another opioid) for 1 week or more. *Often associated with chronic pain. *May take more than usual dose to achieve desired pain control. Review of Systems Constitutional: Reports Fatigue and Weakness; Denies Fever Head: Reports Normocephalic Eyes: Reports No symptoms Ears: Reports No symptoms Nose: Reports No symptoms Mouth: Reports No symptoms Throat: Reports No symptoms Cardiovascular: Reports No symptoms Respiratory: Reports No symptoms Gastrointestinal: Reports No symptoms Genitourinary: Reports No Symptoms Musculoskeletal: Reports No symptoms Endocrine: Reports No symptoms Hematology: Reports No symptoms Immunology: Reports No symptoms Neurological: Reports No symptoms Psychiatric: Reports No symptoms Physical examination Most Recent Vital Signs: Most Recent Vital Signs Temperature 98.3 F 07/25/25 12:22 Temperature Source Infrared 07/25/25 12:22 Pulse Rate 62 07/25/25 12:31 Respiratory Rate 20 07/25/25 12:22 Blood Pressure 81/58 L 07/25/25 12:31 Blood Pressure Location Right Arm 07/25/25 12:31 Blood Pressure Position Sitting 07/25/25 12:31 O2 Sat by Pulse Oximetry 100 07/25/25 12:22 Height 6 ft 1 in 07/25/25 12:22 Weight 82.1 kg 07/25/25 12:22 Telemetry Heart Rate 87 04/20/25 09:07 Telemetry SPO2 97 04/20/25 09:07 Appearance: Positive No Apparent Distress and Alert and Oriented x3 Skin: Positive Warm and Good Color HEENT: Positive Normocephalic and PERRLA Neck: Positive Supple and Midline Trachea Chest/Lungs: Positive Symmetrical With Equal Breath Sounds, Clear to Auscultation Bilaterally and Good Air Movement all 4 Lung Orta; Negative Rales, Rhonci or Wheezes Heart: Positive RRR and Pulses Normal GI/: Positive Soft, Nontender, Bowel Sounds Normal and No Distention Musculoskeletal: Positive Normal Gait and Station Extremities: Positive Intact Peripheral Pulses, Stable Joints Without Laxity and Good ROM in All Joints; Negative Edema Neurological: Positive Sensation Intact, Motor intact, Reflexes Intact, Alert, Oriented and Muscle Strength 5/5 in Upper and Lower Extremities Bilaterally Labs This Visit Labs This Visit: Labs This Visit 07/25/25 07/25/25 12:45 13:05 WBC 3.83 L RBC 3.50 L Hgb 9.2 L Hct 29.7 L MCV 84.9 MCH 26.3 L MCHC 31.0 L RDW Coeff of Delia 16.7 H Plt Count 125 L Immature Gran % (Auto) 0.3 Neut % (Auto) 44.0 Lymph % (Auto) 38.4 Door % (Auto) 8.9 Eos % (Auto) 6.8 Baso % (Auto) 1.6 Neut # (Auto) 1.7 L Lymph # (Auto) 1.5 Door # (Auto) 0.3 L Eos # (Auto) 0.3 Baso # (Auto) 0.1 Immature Gran # (Auto) 0.0 PT 12.4 H INR 1.20 APTT 19.0 L Sodium 127.1 L Potassium 4.34 Chloride 93.7 L Carbon Dioxide 24.4 Anion Gap 13.34 BUN 22.9 H Creatinine 1.67 H Estimated GFR (MDRD) 41.00 BUN/Creatinine Ratio 13.71 Glucose 97.8 Lactic Acid 1.59 Calcium 7.91 L Magnesium 0.72 L* Total Bilirubin 0.46 AST 36.8 ALT 12.9 Alkaline Phosphatase 46.9 L Troponin I < 0.012 NT-Pro-B Natriuret Pep 433 H Total Protein 7.03 Albumin 4.10 Globulin 2.93 Albumin/Globulin Ratio 1.39 Influ A Molecular Assay Negative by naat Influ B Molecular Assay Negative by naat SARS CoV-2 RNA Rapid ARCHIE Negative Imaging Imaging: EXAM: CHEST RADIOGRAPH (1 VIEW) TECHNIQUE: Frontal Chest Radiograph. HISTORY: Chest pain/shortness of breath COMPARISON: 2023. FINDINGS: Lines, Tubes, Devices: None Lungs and Pleura: Hazy opacities in the left lower lung and right upper lung. No dense consolidation. No pleural effusion or pneumothorax. Cardiac silhouette: Normal. Bones: No acute abnormality. IMPRESSION: Hazy densities in the lungs, nonspecific. Correlate for pneumonitis/pneumonia, interstitial lung disease-lateral chronic lung disease. Clinical and imaging follow up to ensure resolution. EXAMINATION: HEAD CT WITHOUT CONTRAST HISTORY: Mental status change. TECHNIQUE: Noncontrast CT of the brain was performed with images acquired from skull base to vertex. 2-D coronal and sagittal reformatted images were obtained from the axial source images. CT Dose Reduction Techniques Performed: Yes. Contrast: None. COMPARISON: 01/29/22. FINDINGS: Intraparenchymal hemorrhage: None. Parenchyma: Normal light-white differentiation. No mass effect or midline shift. White matter is within normal limits for age. Ventricles/Extra-axial spaces and basal cisterns: No hydrocephalus or extraaxial fluid collections. Paranasal sinuses and mastoid air cells: Mild chronic paranasal sinus disease. Mastoid air cells are clear. Orbits: Normal visualized portions. Sella/Skull Base: Normal. Bones: Calvarium is normal. Scalp/Soft Tissues: Scalp and visualized soft tissues are normal. IMPRESSION: 1. No intracranial hemorrhage. 2. No acute findings. EKG Interpretation EKG Interpretation: Sinus bradycardia rate 59, no acute changes. Review Statement Review Statement: I have independently reviewed and interpreted the labs/EKGs/imaging that were ordered by the ER provider. I have reviewed all outside records that are available currently in our EMR including imaging/notes/labs from previous visits. Plan Plan: 1. NED - prerenal due to lack of water intake/alcoholism, NS@100mL/hr, avoid nephrotoxins/hypotension 2. Acute Hyponatremia - mild, NS@100mL/hr, telemetry 3. Acute Hypomagnesemia - replacement given in ER, repeat @ 1900, telemetry 4. Chronic Alcoholism - CIWA protocol ordered, last drink this am, drinks "anywhere from 2-6 beers daily", MVI, folic acid, thiamine ordered daily 5. COPD - does not appear in exacerbation, continue home medications DVT Prophylaxis: Ambulation Time Spent: Greater than 80 minutes spent with patient, 50% of the time spent with this patient was devoted to counseling and coordination of care. Advanced [facility] Plannin minutes spent discussing advance care planning. Smoking Cessation: 3-10 minutes spent discussing smoking cessation. Disposition: Admit to: Med/Surg Observation Discussed Plan of Care with Dr. Amanda Judge. Medications Medication Orders: Medications Ordered Category Date Time Status 0.9 % Sodium Chloride [Saline Flush] Meds 07/25/25 12:41 Active 1 syr IVF PRN PRN Acetaminophen [Tylenol] Meds 07/25/25 14:48 Active 650 mg PO Q4H PRN Folic Acid Meds 07/26/25 09:00 Active 1 mg PO DAILY Lorazepam [Ativan] Meds 07/25/25 14:48 Active 1 mg IVP Q2HR PRN Lorazepam [Ativan] Meds 07/25/25 14:48 Active 1 mg PO Q2HR PRN Lorazepam [Ativan] Meds 07/25/25 14:48 Active 2 mg IVP Q15MIN PRN Lorazepam [Ativan] Meds 07/25/25 14:48 Active 2 mg IVP Q1HR PRN Lorazepam [Ativan] Meds 07/25/25 14:48 Active 2 mg PO Q1HR PRN Multivitamin [Multivitamin Tablet] Meds 07/26/25 09:00 Active 1 tab PO DAILY Ondansetron HCl/Pf [Zofran Sdv] Meds 07/25/25 14:48 Active 4 mg IVP Q6H PRN Sodium Chloride 0.9% [Sodium Chloride] 1,000 ml Meds 07/25/25 15:00 Active IV 100 mls/hr Vitamin B-1 [Thiamine] Meds 07/26/25 09:00 Active 100 mg PO DAILY
[2025-07-25 15:41] VITALS: BMI 24.8
[2025-07-25] MEDS: SODIUM CHLORIDE 1,000 ML IV SCH (16:02)
[2025-07-25] MEDS: PROTONIX PO SCH (16:02)
[2025-07-25 17:17] LABS: GLUCOSE, URINE (UA) Negative (NEGATIVE); LEUKOCYTE ESTERASE ,URINE Negative (NEGATIVE); URINE, BLOOD Negative (NEGATIVE)
[2025-07-25 17:25] LABS: AMPHETAMINE SCREEN,URINE NEGATIVE (NEGATIVE); CANNABINOID SCREEN,URINE NEGATIVE (NEGATIVE); COCAIN SCREEN,URINE NEGATIVE (NEGATIVE); METHADONE URINE SCREEN NEGATIVE (NEGATIVE); METHAMPHETAMINES SCREEN,URINE NEGATIVE (NEGATIVE); OXYCODONE URINE SCREEN NEGATIVE (NEGATIVE); TRICYCLIC ANTIDEPRESSANTS URIN NEGATIVE (NEGATIVE)
[2025-07-25] MEDS: LYRICA PO SCH (20:10)
[2025-07-25] MEDS: MAGNESIUM SULF 2 G/50 ML BAG 2 GM/50 ML PIGGYBACK IV ONE (20:11)
[2025-07-25] MEDS: NORCO 10-325 PO PRN (20:19)
[2025-07-26 06:00] LABS: CREATININE 1.28 mg/dL (0.60-1.10)
[2025-07-26 06:01] LABS: IMMATURE GRANULOCYTE # (AUTO) 0.0 (0.0-1.0); IMMATURE GRANULOCYTE % (AUTO) 0.3 % (0.0-5.0); RDW COEFFICIENT OF VARIATION 16.8 % (11.6-14.8)
[2025-07-26] MEDS: FOLIC ACID PO SCH (09:19)
[2025-07-26] MEDS: LIPITOR PO SCH (09:19)
[2025-07-26] MEDS: LEXAPRO PO SCH (09:19)
[2025-07-26] MEDS: MAGNESIUM SULFATE 1 GM/100 ML D5W 1 GM/100 ML BAG IV ONE (09:19)
[2025-07-26] MEDS: LOPRESSOR PO SCH (09:19)
[2025-07-26] MEDS: MULTIVITAMIN TABLET PO SCH (09:20)
[2025-07-26] MEDS: THIAMINE PO SCH (09:20)
[2025-07-26] MEDS: FERROUS SULFATE PO SCH (09:20)
[2025-07-26 12:27] LABS: CREATININE 1.14 mg/dL (0.60-1.10)
--- NOTE | 2025-07-26 12:35 | PCM.PROG ---
Date/Time Seen Date Seen by Provider: 07/26/25 Time Seen by Provider: 08:20 Provider Provider[facility], [facility] Chief Complaint Chief Complaint: LAO ELECTROLYTEMIA (NA,MG,CL) , NED Subjective Subjective: Still c/o some weakness, but feeling some better. Orthostasis noted on last orthostatic vital check. Objective Appearance: Positive No Apparent Distress and Alert and Oriented x3 Chest/Lungs: Positive Symmetrical With Equal Breath Sounds, Clear to Auscultation Bilaterally and Good Air Movement all 4 Lung Orta; Negative Rales, Rhonci or Wheezes Heart: Positive RRR and Pulses Normal GI/: Positive Soft, Nontender, Bowel Sounds Normal and No Distention Musculoskeletal: Positive Not Examined Neurological: Positive Sensation Intact, Motor intact, Reflexes Intact, Alert, Oriented and Other (generalized weakness) Vital Signs Vital Signs: Vital Signs: Last 24 Hours 07/25/25 15:19 07/25/25 15:19 07/25/25 16:00 Temperature 97 F L Temperature Source Temporal Artery Scan Pulse Rate 62 Respiratory Rate 16 16 Blood Pressure Blood Pressure Mean Blood Pressure Right Arm 143/71 Blood Pressure Location Blood Pressure Position Supine O2 Sat by Pulse Oximetry 98 Oxygen Delivery Method Room Air Room Air Room Air Height 6 ft Weight 83.1 kg Telemetry Type Telemetry Monitoring Irregular Telemetry Rate (Approximate) Telemetry Heart Rate EKG MS Interval EKG QRS Interval Telemetry Strip Reading 07/25/25 16:38 07/25/25 16:48 07/25/25 18:00 Temperature Temperature Source Pulse Rate Respiratory Rate Blood Pressure Blood Pressure Mean Blood Pressure Right Arm Blood Pressure Location Blood Pressure Position O2 Sat by Pulse Oximetry Oxygen Delivery Method Room Air Room Air Height Weight Telemetry Type Remote Telemetry Telemetry Monitoring Started Irregular Telemetry Rate (Approximate) Telemetry Heart Rate 57 L EKG MS Interval 0.18 EKG QRS Interval 0.08 Telemetry Strip Reading Sinus Bradycardia 07/25/25 18:00 07/25/25 18:38 07/25/25 19:00 Temperature 96.9 F L 97.5 F L Temperature Source Temporal Artery Scan Oral Pulse Rate 63 Respiratory Rate 20 Blood Pressure 129/66 Blood Pressure Mean 87 Blood Pressure Right Arm Blood Pressure Location Left Arm Blood Pressure Position Supine O2 Sat by Pulse Oximetry 99 Oxygen Delivery Method Room Air Room Air Room Air Height Weight Telemetry Type Telemetry Monitoring Irregular Telemetry Rate (Approximate) Telemetry Heart Rate EKG MS Interval EKG QRS Interval Telemetry Strip Reading 07/25/25 19:00 07/25/25 20:00 07/25/25 20:00 Temperature Temperature Source Pulse Rate Respiratory Rate Blood Pressure Blood Pressure Mean Blood Pressure Right Arm Blood Pressure Location Blood Pressure Position O2 Sat by Pulse Oximetry Oxygen Delivery Method Room Air Room Air Height Weight Telemetry Type Remote Telemetry Telemetry Monitoring Continues Irregular Telemetry Rate (Approximate) 60-70 BPM Telemetry Heart Rate 63 EKG MS Interval 0.18 EKG QRS Interval 0.09 Telemetry Strip Reading NSR 07/25/25 21:00 07/25/25 21:54 07/25/25 22:00 Temperature 96.9 F L Temperature Source Temporal Artery Scan Pulse Rate 64 Respiratory Rate 14 Blood Pressure 107/45 L Blood Pressure Mean 65 Blood Pressure Right Arm Blood Pressure Location Right Arm Blood Pressure Position Supine O2 Sat by Pulse Oximetry 97 Oxygen Delivery Method Room Air Room Air Room Air Height Weight Telemetry Type Telemetry Monitoring Irregular Telemetry Rate (Approximate) Telemetry Heart Rate EKG MS Interval EKG QRS Interval Telemetry Strip Reading 07/25/25 23:00 07/26/25 00:00 07/26/25 01:00 Temperature Temperature Source Pulse Rate Respiratory Rate Blood Pressure Blood Pressure Mean Blood Pressure Right Arm Blood Pressure Location Blood Pressure Position O2 Sat by Pulse Oximetry Oxygen Delivery Method Room Air Room Air Room Air Height Weight Telemetry Type Telemetry Monitoring Irregular Telemetry Rate (Approximate) Telemetry Heart Rate EKG MS Interval EKG QRS Interval Telemetry Strip Reading 07/26/25 01:00 07/26/25 02:00 07/26/25 03:00 Temperature Temperature Source Pulse Rate Respiratory Rate Blood Pressure Blood Pressure Mean Blood Pressure Right Arm Blood Pressure Location Blood Pressure Position O2 Sat by Pulse Oximetry Oxygen Delivery Method Room Air Room Air Height Weight Telemetry Type Remote Telemetry Telemetry Monitoring Continues Irregular Telemetry Rate (Approximate) Telemetry Heart Rate 59 L EKG MS Interval 0.23 H EKG QRS Interval 0.07 Telemetry Strip Reading SB WITH 1ST DEGREE BLOCK 07/26/25 04:00 07/26/25 05:00 07/26/25 05:46 Temperature Temperature Source Pulse Rate Respiratory Rate Blood Pressure Blood Pressure Mean Blood Pressure Right Arm Blood Pressure Location Blood Pressure Position O2 Sat by Pulse Oximetry Oxygen Delivery Method Room Air Room Air Room Air Height Weight Telemetry Type Telemetry Monitoring Irregular Telemetry Rate (Approximate) Telemetry Heart Rate EKG MS Interval EKG QRS Interval Telemetry Strip Reading 07/26/25 05:55 07/26/25 05:56 07/26/25 05:57 Temperature 97.4 F L Temperature Source Temporal Artery Scan Pulse Rate 63 64 70 Respiratory Rate 16 Blood Pressure 129/71 131/71 110/59 L Blood Pressure Mean 90 Blood Pressure Right Arm Blood Pressure Location Left Arm Left Arm Left Arm Blood Pressure Position Supine Sitting Standing O2 Sat by Pulse Oximetry 96 Oxygen Delivery Method Room Air Height Weight Telemetry Type Telemetry Monitoring Irregular Telemetry Rate (Approximate) Telemetry Heart Rate EKG MS Interval EKG QRS Interval Telemetry Strip Reading 07/26/25 07:00 07/26/25 07:00 07/26/25 08:00 Temperature Temperature Source Pulse Rate Respiratory Rate Blood Pressure Blood Pressure Mean Blood Pressure Right Arm Blood Pressure Location Blood Pressure Position O2 Sat by Pulse Oximetry Oxygen Delivery Method Room Air Room Air Height Weight Telemetry Type Remote Telemetry Telemetry Monitoring Continues Irregular Telemetry Rate (Approximate) Telemetry Heart Rate 60 EKG MS Interval 0.22 H EKG QRS Interval 0.09 Telemetry Strip Reading SR W/1ST DEGREE AVB 07/26/25 08:00 07/26/25 09:00 07/26/25 10:00 Temperature Temperature Source Pulse Rate Respiratory Rate Blood Pressure Blood Pressure Mean Blood Pressure Right Arm Blood Pressure Location Blood Pressure Position O2 Sat by Pulse Oximetry Oxygen Delivery Method Room Air Room Air Room Air Height Weight Telemetry Type Telemetry Monitoring Irregular Telemetry Rate (Approximate) Telemetry Heart Rate EKG MS Interval EKG QRS Interval Telemetry Strip Reading 07/26/25 10:00 07/26/25 11:00 07/26/25 12:00 Temperature 97.3 F L Temperature Source Temporal Artery Scan Pulse Rate 62 Respiratory Rate 18 Blood Pressure 126/78 Blood Pressure Mean 94 Blood Pressure Right Arm Blood Pressure Location Left Arm Blood Pressure Position Supine O2 Sat by Pulse Oximetry 97 Oxygen Delivery Method Room Air Room Air Room Air Height Weight Telemetry Type Telemetry Monitoring Irregular Telemetry Rate (Approximate) Telemetry Heart Rate EKG MS Interval EKG QRS Interval Telemetry Strip Reading Lab Results Lab Results: Lab Results: Last 24 Hours 07/26/25 07/26/25 07/25/25 12:04 05:10 18:50 WBC 3.22 L RBC 3.14 L Hgb 8.4 L Hct 27.5 L MCV 87.6 MCH 26.8 L MCHC 30.5 L RDW Coeff of Delia 16.8 H Plt Count 81 L D Immature Gran % (Auto) 0.3 Neut % (Auto) 52.1 Lymph % (Auto) 33.9 Door % (Auto) 7.8 Eos % (Auto) 5.0 Baso % (Auto) 0.9 Neut # (Auto) 1.7 L Lymph # (Auto) 1.1 [place] # (Auto) 0.3 L Eos # (Auto) 0.2 Baso # (Auto) 0.0 Immature Gran # (Auto) 0.0 PT INR APTT Sodium 132.0 L 131.2 L Potassium 4.53 4.06 Chloride 102.1 100.1 Carbon Dioxide 27.4 27.8 Anion Gap 7.03 7.36 BUN 16.3 19.0 Creatinine 1.14 H 1.28 H Estimated GFR (MDRD) 63.00 55.00 BUN/Creatinine Ratio 14.29 14.84 Glucose 97.1 D 154.0 H D Lactic Acid Calcium 8.12 L 7.93 L Magnesium 1.58 L 1.20 L Total Bilirubin 0.25 AST 29.5 ALT 11.5 Alkaline Phosphatase 48.4 L Troponin I NT-Pro-B Natriuret Pep Total Protein 6.22 L Albumin 3.57 Globulin 2.65 Albumin/Globulin Ratio 1.34 Urine Color Urine Clarity Urine pH Ur Specific [place] Urine Protein Urine Glucose (UA) Urine Ketones Urine Blood Urine Nitrite Urine Bilirubin Urine Urobilinogen Ur Leukocyte Esterase Urine Opiates Screen Ur Oxycodone Screen Urine Methadone Screen Ur Barbiturates Screen U Tricyclic Antidepress Ur Phencyclidine Scrn Ur Amphetamine Screen U Methamphetamines Scrn U Benzodiazepines Scrn Urine Cocaine Screen U Cannabinoids Screen Influ A Molecular Assay Influ B Molecular Assay SARS CoV-2 RNA Rapid ARCHIE 07/25/25 07/25/25 07/25/25 17:06 13:05 12:45 WBC 3.83 L RBC 3.50 L Hgb 9.2 L Hct 29.7 L MCV 84.9 MCH 26.3 L MCHC 31.0 L RDW Coeff of Delia 16.7 H Plt Count 125 L Immature Gran % (Auto) 0.3 Neut % (Auto) 44.0 Lymph % (Auto) 38.4 Door % (Auto) 8.9 Eos % (Auto) 6.8 Baso % (Auto) 1.6 Neut # (Auto) 1.7 L Lymph # (Auto) 1.5 Door # (Auto) 0.3 L Eos # (Auto) 0.3 Baso # (Auto) 0.1 Immature Gran # (Auto) 0.0 PT 12.4 H INR 1.20 APTT 19.0 L Sodium 127.1 L Potassium 4.34 Chloride 93.7 L Carbon Dioxide 24.4 Anion Gap 13.34 BUN 22.9 H Creatinine 1.67 H Estimated GFR (MDRD) 41.00 BUN/Creatinine Ratio 13.71 Glucose 97.8 Lactic Acid 1.59 Calcium 7.91 L Magnesium 0.72 L* Total Bilirubin 0.46 AST 36.8 ALT 12.9 Alkaline Phosphatase 46.9 L Troponin I < 0.012 NT-Pro-B Natriuret Pep 433 H Total Protein 7.03 Albumin 4.10 Globulin 2.93 Albumin/Globulin Ratio 1.39 Urine Color Yellow Urine Clarity Clear Urine pH 5.5 Ur Specific [place] 1.010 Urine Protein Negative Urine Glucose (UA) Negative Urine Ketones Negative Urine Blood Negative Urine Nitrite Negative Urine Bilirubin Negative Urine Urobilinogen 0.2 Ur Leukocyte Esterase Negative Urine Opiates Screen Positive H Ur Oxycodone Screen Negative Urine Methadone Screen Negative Ur Barbiturates Screen Negative U Tricyclic Antidepress Negative Ur Phencyclidine Scrn Negative Ur Amphetamine Screen Negative U Methamphetamines Scrn Negative U Benzodiazepines Scrn Negative Urine Cocaine Screen Negative U Cannabinoids Screen Negative Influ A Molecular Assay Negative by naat Influ B Molecular Assay Negative by naat SARS CoV-2 RNA Rapid ARCHIE Negative Additional Comments Additional Comments: I have independently reviewed and interpreted the labs/EKGs/imaging ordered during this hospital stay. I have reviewed outside records that are available in our EMR that pertain to medical stay including imaging/notes/labs from previous visits. Active Medications Active Medications: Medications Generic Name Dose Route Start Last Admin Trade Name Freq PRN Reason Stop Dose Admin Acetaminophen 650 mg 07/25/25 14:48 Acetaminophen 325 Mg Tablet PO Q4H PRN Mild Pain Hydrocodone Bitart/Acetaminophen 1 tab 07/25/25 15:45 07/26/25 09:28 Hydrocodone Bit/Acetaminophen 10/325 Mg Tablet PO 1 tab Q6H PRN Administration Pain Albuterol Sulfate 2 puff 07/25/25 15:45 Albuterol Sulfate 8 Gm Inhaler IH QID PRN Wheezing Atorvastatin Calcium 20 mg 07/26/25 09:00 07/26/25 09:19 Atorvastatin Calcium 20 Mg Tablet PO 20 mg DAILY BERNARDO Administration Escitalopram Oxalate 10 mg 07/26/25 09:00 07/26/25 09:19 Escitalopram Oxalate 10 Mg Tablet PO 10 mg DAILY BERNARDO Administration Ferrous Sulfate 324 mg 07/26/25 09:00 07/26/25 09:20 Ferrous Sulfate 324 Mg Tablet. PO 324 mg DAILY BERNARDO Administration Folic Acid 1 mg 07/26/25 09:00 07/26/25 09:19 Folic Acid 1 Mg Tablet PO 1 mg DAILY BERNARDO Administration Sodium Chloride 1,000 mls @ 100 mls/hr 07/25/25 15:00 07/26/25 03:50 Sodium Chloride IV 100 mls/hr .Q10H BERNARDO Administration Lorazepam 2 mg 07/25/25 14:48 Lorazepam 1 Mg Tablet PO Q1HR PRN Withdrawal Lorazepam 1 mg 07/25/25 14:48 Lorazepam 1 Mg Tablet PO Q2HR PRN Withdrawal Lorazepam 2 mg 07/25/25 14:48 Lorazepam Inj 2 Mg/Ml Vial IVP Q15MIN PRN Withdrawal Lorazepam 2 mg 07/25/25 14:48 Lorazepam Inj 2 Mg/Ml Vial IVP Q1HR PRN Withdrawal Lorazepam 1 mg 07/25/25 14:48 Lorazepam Inj 2 Mg/Ml Vial IVP Q2HR PRN Withdrawal Metoprolol Tartrate 50 mg 07/26/25 09:00 07/26/25 09:19 Metoprolol Tartrate 50 Mg Tablet PO 50 mg DAILY BERNARDO Administration Multivitamins 1 tab 07/26/25 09:00 07/26/25 09:20 Multivitamin 1 Tab PO 1 tab DAILY BERNARDO Administration Ondansetron HCl 4 mg 07/25/25 14:48 Ondansetron Hcl/Pf 4 Mg/2 Ml Sdv IVP Q6H PRN Nausea / Vomiting Pantoprazole Sodium 40 mg 07/25/25 17:00 07/26/25 05:40 Pantoprazole Sodium 40 Mg Tablet. PO 40 mg BIDAC2 BERNARDO Administration Pregabalin 100 mg 07/25/25 21:00 07/26/25 09:20 Pregabalin 50 Mg Capsule PO 100 mg BID BERNARDO Administration Sodium Chloride 1 syr 07/25/25 12:41 07/25/25 13:39 0.9% Sodium Chloride 10 Ml Disp.Syrin IVF 1 syr PRN PRN Administration To flush IV Thiamine HCl 100 mg 07/26/25 09:00 07/26/25 09:20 Vitamin B-1 100 Mg Tablet PO 100 mg DAILY BERNARDO Administration Plan Plan: 1. NED - Improving, prerenal due to lack of water intake/alcoholism, NS@100mL/hr, avoid nephrotoxins/hypotension 2. Acute Hyponatremia - Improving, mild, NS@100mL/hr, telemetry 3. Acute Hypomagnesemia - Improved, further replacement given for goal of 2, telemetry 4. Chronic Alcoholism - CIWA protocol ordered, last drink this am, drinks "anywhere from 2-6 beers daily", MVI, folic acid, thiamine ordered daily 5. COPD - does not appear in exacerbation, continue home medications DVT Prophylaxis: Ambulation Review Statement Review Statement: I have personally discussed and reviewed the patient's visit/currently labs/imaging/decision making with Dr. Judge, my supervising attending. Greater that 50 minutes spent with patient, 50% of the time spent with this patient was devoted to counseling and coordination of care.
[2025-07-26] MEDS: TYLENOL PO PRN (17:45)
[2025-07-27 02:09] VITALS: RESP 18
[2025-07-27 05:39] LABS: IMMATURE GRANULOCYTE # (AUTO) 0.0 (0.0-1.0); IMMATURE GRANULOCYTE % (AUTO) 0.0 % (0.0-5.0); RDW COEFFICIENT OF VARIATION 16.9 % (11.6-14.8)
[2025-07-27 05:48] LABS: CREATININE 0.95 mg/dL (0.60-1.10)
[2025-07-27] MEDS: MAGNESIUM SULF 2 G/50 ML BAG 2 GM/50 ML PIGGYBACK IV ONE (08:46)
[2025-07-27] MEDS: MAG-OX PO SCH (08:47)
[2025-07-27] MEDS: VENTOLIN HFA IH PRN (08:51)
[2025-07-27 09:37] VITALS: TEMP 97.5
--- NOTE | 2025-07-27 13:12 | DCSUM ---
Admission Date Admission Date: 07/25/25 Discharge Date Discharge Date: 07/27/25 Admission Diagnosis Admission Diagnosis: 1. NED 2. Acute Hyponatremia 3. Acute Hypomagnesemia Discharge Diagnosis Discharge Diagnosis: 1. NED - Resolved 2. Acute Hyponatremia - Resolved 3. Acute Hypomagnesemia - Resolved 4. Chronic Alcoholism - no s/sx of withdrawal during stay 5. COPD - stable Hospital Provider Hospital Provider: REJI ESTRADA, [facility] Primary Care Physician Primary Care Physician: SHANNON BLACK APRN Summary of History and Physical Summary of History and Physical: 70 yo male with pmh of chronic back, alcoholism, COPD, and pancytopenia presented to the ER from pain management appointment for hypotension. Patient reports this morning has felt like a fog and doesn't really remember much. ER provider reports he went to his pain management appointment and reported just generalized not feeling well. SBP was in 70s-80s. Sent to ER for evaluation. BP continued to be low. Mild NED present. Sodium and mag low. Rest of labs at chronic level. Chest xray and head CT clear. Received 1L NS, 1L banana bag, and mag rider. Denies any complaints at this time. Feeling much better currently. Drinking a sprite and talking with staff. Denies any symptoms other than weakness prior to arrival. Admitted to med/surg observation. Hospital Course Subjective: During stay, NED was treated with NS@100mL/hr. Creatinine slowly returned back to normal as of this am. Magnesium initially 0.7 and was replaced. Dropped back down to 1.2 this am. Oral and IV replacement given. Level up to 1.62 upon discharge. Sent with RX for mag oxide daily. BP returned to normal limits. No s/sx of alcohol withdrawal during stay. Rest of labs at baseline with chronic pancytopenia. No changes to home medications. Recommended repeating mag level at follow-up appointment. Follow-up with PCP. Encouraged alcohol cessation as well as increase in water intake. Appearance: Pleasant, No Apparent Distress and Alert HEENT: MMM, Supple and No JVD CVS: No Murmur, No Rubs and No Gallop Abdomen: Soft, Non-Tender and No Distention Respiratory: No Dyspnea Extremities: No Edema Vital Signs: Most Recent Vital Signs Temperature 97.5 F L 07/27/25 09:36 Temperature Source Temporal Artery Scan 07/27/25 09:36 Temperature Source Infrared 07/25/25 12:22 Pulse Rate 70 07/27/25 09:36 Respiratory Rate 18 07/27/25 09:36 Blood Pressure 106/74 07/27/25 09:36 Blood Pressure Mean 84 07/27/25 09:36 Blood Pressure Right Arm 143/71 07/25/25 15:19 Blood Pressure Location Left Arm 07/27/25 09:36 Blood Pressure Position Sitting 07/27/25 09:36 O2 Sat by Pulse Oximetry 99 07/27/25 09:36 Oxygen Delivery Method Room Air 07/27/25 13:00 Height 6 ft 07/25/25 15:19 Weight 83.1 kg 07/25/25 15:19 Telemetry Type Remote Telemetry 07/27/25 07:00 Telemetry Monitoring Continues 07/27/25 07:00 Irregular Telemetry Rate (Approximate) 60-70 BPM 07/26/25 13:00 Telemetry Heart Rate 64 07/27/25 07:00 Telemetry SPO2 97 04/20/25 09:07 EKG NE Interval 0.16 07/27/25 07:00 EKG QRS Interval 0.06 07/27/25 07:00 Telemetry Strip Reading SR w. PVCs 07/27/25 07:00 Imaging: EXAM: CHEST RADIOGRAPH (1 VIEW) TECHNIQUE: Frontal Chest Radiograph. HISTORY: Chest pain/shortness of breath COMPARISON: 2023. FINDINGS: Lines, Tubes, Devices: None Lungs and Pleura: Hazy opacities in the left lower lung and right upper lung. No dense consolidation. No pleural effusion or pneumothorax. Cardiac silhouette: Normal. Bones: No acute abnormality. IMPRESSION: Hazy densities in the lungs, nonspecific. Correlate for pneumonitis/pneumonia, interstitial lung disease-lateral chronic lung disease. Clinical and imaging follow up to ensure resolution. Lab Results Last 24 Hours: 07/27/25 07/27/25 12:45 05:00 WBC 2.35 L RBC 3.01 L Hgb 7.9 L Hct 27.4 L MCV 91.0 MCH 26.2 L MCHC 28.8 L RDW Coeff of Delia 16.9 H Plt Count 70 L Immature Gran % (Auto) 0.0 Neut % (Auto) 45.0 Lymph % (Auto) 43.0 [place] % (Auto) 6.8 Eos % (Auto) 4.3 Baso % (Auto) 0.9 Neut # (Auto) 1.1 L Lymph # (Auto) 1.0 [place] # (Auto) 0.2 L Eos # (Auto) 0.1 Baso # (Auto) 0.0 Immature Gran # (Auto) 0.0 Hypochromasia 1+ Anisocytosis 1+ Sodium 132.2 L Potassium 3.95 Chloride 106.2 Carbon Dioxide 25.8 Anion Gap 4.15 BUN 13.7 Creatinine 0.95 Estimated GFR (MDRD) 78.00 BUN/Creatinine Ratio 14.42 Glucose 99.7 Calcium 8.11 L Magnesium 1.63 1.29 L Total Bilirubin 0.33 AST 23.7 ALT 10.9 Alkaline Phosphatase 44.9 L Total Protein 5.73 L Albumin 3.22 L Globulin 2.51 Albumin/Globulin Ratio 1.28 Discharge Instructions Discharge Planning: Discharge Planning > 40 minutes If patient is discharged with left ventricular systolic dysfunction: na Discharged with a beta tali? [] If no, why not? [] Discharged with an rohini/arb? [] If no, why not? [] Discharge Medications: Medications at Discharge (Home Meds & RX) pantoprazole 40 mg tablet,delayed release (Protonix) 40 mg PO BID #60 tabs 02/13/25 ferrous sulfate 325 mg (65 mg iron) tablet 325 mg PO QDAY #30 tabs 04/06/25 hydrocodone 10 mg-acetaminophen 325 mg tablet 1 tab PO Q6H PRN pain #120 tabs 06/19/25 pregabalin 100 mg capsule 100 mg PO BID #60 caps 07/03/25 atorvastatin 20 mg tablet (Lipitor) 20 mg PO DAILY 07/25/25 escitalopram oxalate 10 mg tablet (Lexapro) 10 mg PO DAILY 07/25/25 albuterol sulfate 90 mcg/actuation aerosol inhaler 2 puff inhalation QID PRN shortness of breath or wheezing #8.5 grams 07/27/25 atorvastatin 20 mg tablet 20 mg PO DAILY #30 tabs 07/27/25 escitalopram oxalate 10 mg tablet 10 mg PO DAILY #30 tabs 07/27/25 magnesium oxide 400 mg (241.3 mg magnesium) tablet 400 mg PO DAILY #30 tabs 07/27/25 metoprolol tartrate 50 mg tablet 50 mg PO DAILY #30 tabs 07/27/25 Discharge Plan Discharge Discharge Orders: Discharge Patient (ONCE); Ordered 07/27/25 Ordered By: NATAN HERNANDEZ Activity Restrictions/Additional Instructions: Diagnosis: Acute Kidney Injury, Low Magnesium, Low Sodium Diet: Regular, Drink at least 2L of water per day with 1L of gatorade or powerade. Avoid alcohol use. Activity as tolerated. Medications: [facility] * Magnesium oxide 400 mg daily - for low magnesium * Refill sent in for your albuterol inhaler when the one from the hospital runs out. Follow-up with your primary care provider. Instructions: Acute Kidney Injury (GEN), At-Risk Alcohol Use (GEN), Hypomagnesemia (GEN) Patient Disposition: HOME SELF-CARE Prescriptions: New atorvastatin 20 mg Tablet 20 mg PO DAILY Qty: 30 0RF magnesium oxide 400 mg (241.3 mg magnesium) Tablet 400 mg PO DAILY Qty: 30 0RF metoprolol tartrate 50 mg Tablet 50 mg PO DAILY Qty: 30 0RF escitalopram oxalate 10 mg Tablet 10 mg PO DAILY Qty: 30 0RF Continued pantoprazole [Protonix] 40 mg tablet,delayed release (DR/EC) 40 mg PO BID Qty: 60 3RF ferrous sulfate 325 mg (65 mg iron) tablet 325 mg PO QDAY Qty: 30 3RF hydrocodone-acetaminophen 10-325 mg tablet 1 tab PO Q6H PRN (Reason: pain) Qty: 120 0RF pregabalin 100 mg capsule 100 mg PO BID Qty: 60 0RF atorvastatin [Lipitor] 20 mg tablet 20 mg PO DAILY escitalopram oxalate [Lexapro] 10 mg tablet 10 mg PO DAILY albuterol sulfate 90 mcg/actuation HFA aerosol inhaler 2 puff inhalation QID PRN (Reason: shortness of breath or wheezing) Qty: 8.5 0RF Discontinued metoprolol tartrate 50 mg tablet 50 mg PO DAILY Did you review [place] [employer] for ALL controlled substances?: No Discussed opioids are addictive and Narcan is available by prescription or from pharmacy.: No Condition: Stable Referrals: SHANNON BLACK APRN [Primary Care Provider, NURSE PRACTITIONER] - 07/31/25 9:00 am
[2025-07-27] MEDS: FLUZONE HIGH IM ONE (13:41)
[2025-07-27] MEDS: PREVNAR 20 SYRINGE IM ONE (13:43)
[2025-07-27 13:53] VITALS: BP 151/76; PULSE 69
== END 2025-07-27 15:00 | disposition home or self-care (01) ==
LOC: ED 12:20 → MEDSURG B 14:41 → INTOOBSV 14:41 → MEDSURG B 15:06
PROVIDERS: ADMIT Hospitalist; ATTEND Nurse Practitioner Family
DX: M62.81 Muscle weakness (generalized); F17.210 Nicotine dependence, cigarettes, uncomplicated; R06.02 Shortness of breath; F10.20 Alcohol dependence, uncomplicated; R00.1 Bradycardia, unspecified; J44.9 Chronic obstructive pulmonary disease, unspecified; R07.9 Chest pain, unspecified; G89.29 Other chronic pain; E83.42 Hypomagnesemia; E87.8 Other disorders of electrolyte and fluid balance, not elsewhere classified; I95.9 Hypotension, unspecified; N17.9 Acute kidney failure, unspecified; D64.9 Anemia, unspecified; Z51.81 Encounter for therapeutic drug level monitoring; E87.1 Hypo-osmolality and hyponatremia; D69.6 Thrombocytopenia, unspecified; Z20.822 Contact with and (suspected) exposure to COVID-19; D61.818 Other pancytopenia; D72.819 Decreased white blood cell count, unspecified; Z79.899 Other long term (current) drug therapy

== ENCOUNTER 2025-08-15 13:39 | Inpatient (IN) ==
--- NOTE | 2025-08-15 14:02 | ED.PDOC ---
General [facility] ED Provider: Dr. PILLO VANN MD Chief Complaint: Non-specific Complaint Stated Complaint: Patient brought over from surgery where he was going to get a nerve injection secondary to blood pressure being in the 80s. Patient was seen here on July 25 and admitted from the of the for very similar complaint at that time he was slightly hypotensive and bradycardic. Was also in acute kidney injury. Reviewed maninder Silverist history and physical, progress note, discharge summary. Patient was in NED and decreased Mg. Patient was fluid rehydrated and discharged after 2 days. Pt admits to drinking several drinks a night, no hx of WD, and last hospital stay did not have WD issues. Patient currently denies any severe headache, alteration of mental status, chest pain, shortness of breath, cough, abdominal pain, nausea, vomiting, urinary complaints. Time Seen by Provider: 08/15/25 13:57 Mode of Arrival: Wheelchair (Brought by preop) Information Source: Patient, Family and Other Exam Limitations: No limitations Primary Care Provider: SHANNON BLACK APRN Nursing and Triage Documentation Reviewed and Agree: Yes Opioid Naive vs. Tolerant Does Patient Take Opioids?: No Is Patient Opioid Naive?: Yes What is Opioid Naive?: *Opioid Naive implies the patient is not already taking opioids or not chronically receiving opioids on a daily basis. *PRN dosing is not "usually" associated with tolerance. *Patients are at higher risk of over-sedation and aspiration. Is Patient Opioid Tolerant?: No What is Opioid Tolerant?: *Opioid Tolerance implies less than the expected response to an opioid. *Acquired tolerance is defined by the patient taking 60mg of oral morphine daily (or equianalgesic dose of another opioid) for 1 week or more. *Often associated with chronic pain. *May take more than usual dose to achieve desired pain control. Review of Systems Review Of Systems Constitutional: Reports Weakness All Other Systems: Reviewed and Negative [facility] Medical History COPD exacerbation J44.1 - Chronic obstructive pulmonary disease with (acute) exacerbation (ICD-10) Dehydration E86.0 - Dehydration (ICD-10) Abdominal pain R10.9 - Unspecified abdominal pain (ICD-10) Acute kidney injury N17.9 - Acute kidney failure, unspecified (ICD-10) DVT (deep venous thrombosis) left leg I82.409 - Acute embolism and thrombosis of unspecified deep veins of unspecified lower extremity (ICD-10) Syncope and collapse R55 - Syncope and collapse (ICD-10) Esophageal thickening K22.89 - Other specified disease of esophagus (ICD-10) Family History FATHER Diabetes Hypertension Mother Diabetes Hypertension SISTER Diabetes BROTHER Diabetes Social History Smoking and tobacco status: Current every day smoker Tobacco type: cigarettes Smoking packs per day: 1 Smoking cigarettes per day: 20.0 Alcohol intake: current Alcohol intake frequency: 3 or more drinks per day Alcohol type: beer Substance use type: former substance user Special antonio needs: No Agree to transfusion: Yes Adopted: No Caregiver/support person: No Foster care: No Household members: none Housing: house Marital status: D Lives independently: Yes Number of children: 2 Highest education level completed: high school graduate Financial difficulty paying for basics: not very hard service: No FPC: No Current occupational status: disabled History of recent travel: No Do you think of yourself as: straight/heterosexual Current gender identity: male Seatbelt use: always Drives intoxicated or rides with intoxicated motor coach driver: No Current diet type/program: regular Water heater temperature set < 120 degrees: Yes Working smoke detector in home: Yes Fire extinguisher in home: Yes Carbon monoxide detector in home: Yes What type of physical activity do you participate in?: walking Surgical History Hx of neck surgery Z98.890 - Other specified postprocedural states (ICD-10) Previous back surgery Z98.890 - Other specified postprocedural states (ICD-10) History of appendectomy Z90.49 - Acquired absence of other specified parts of digestive tract (ICD- 10) History of vein stripping Dr. Mendoza Z98.890 - Other specified postprocedural states (ICD-10) Physical Exam Physical Exam Appearance: Reports No pain distress, Thin and Cachectic Ill-appearing: Mild Pain Distress: None ENT: Reports Ears normal Neck: Supple Respiratory: Reports Airway patent, Breath sounds clear and Breath sounds equal Cardiovascular: Reports RRR and Pulses normal GI/: Reports Soft and Nontender Musculoskeletal: Reports Normal strength Skin: Reports Warm and Dry Neurological: Reports Sensation intact, Motor intact, Reflexes intact, Alert and Oriented Psychiatric: Reports Affect appropriate Interpretation EKG Interpretation EKG Interpretation By: ED Physician Time of EKG #1: 14:19 (Normal sinus rhythm with a rate of 82. Left axis deviation. Normal intervals. Criteria for LVH. Poor R wave progression, no acute ST changes, similar to prior EKG) Radiology Interpretation Exam Interpreted: CXR (1 view chest x-ray independently interpreted by me showed no acute infiltrate or changes) Procedures IV/Art Line Insertion Location: R AC Type of Line: Peripheral IV Invasive Line/IV Catheter Gauge: 22 Number of Attempts: 3 Blood Return Positive: No (Unable to obtain US guided IV access ) Physician Progress Note Physician Progress Note: Pt presented w/ hypotensive, malaise from the preop area. Patient was recently mated July 25 to with similar story. Nursing notes reviewed. Vital signs reviewed. Reviewed Past medical history as documented above as well as listed surgical, family, and social history. Medication list reviewed. IV + monitor + pulse ox ABCD's assessed and addressed as necessary DDx includes: Sepsis, dehydration, chronic alcohol use Records reviewed: ER note from July 25, hospitalist note from July 25 through July 27 Independent historians used: Preop nurse Labs/imaging studies ordered/reviewed/significant findings: CBC, CMP, alcohol, urine drug screen, magnesium, phosphorus, TSH, UA, troponin. Patient's hemoglobin is improved to 9.6, platelets slightly improved to 139. CMP sodium lower than last admission at 128, chloride 95. Creatinine 2.62 was less than 1 at discharge on July 31. Magnesium low at 1.03. Alcohol level less than 10. Glucose 110. Troponin neg Previous labs/imaging studies reviewed: Previous labs from July 25 to July 27 reviewed occluding multiple CBCs, CMP's Independent interpretation of tests ordered: EKG, X-ray chest. Therapies prescribed: 100 mg Thiamine, 1L NS Response to therapies/Re-evaluation: Patient has had a MAP greater than 65 throughout his stay in the emergency department, alert and oriented. Still admitting to drinking 5-6 beers a night Consultations Provider: PRISCILA Mckeon at 1445, accepts full admit Consultations Non-Provider: Social determinants of health: Final Dx: Acute kidney injury, hypomagnesia, chronic alcohol use Patient with signs of dehydration, acute kidney injury, was brought over from preop area with a blood pressure in the 80s, was in the 1 teens here on arrival. Patient is awake, alert, and oriented, still admitting to alcohol use. Sodium slightly lower than previous admission, creatinine up to 2.62. Will give 100 mg of thiamine, start saline replacement, magnesium replacement. No signs of sepsis. Think this is secondary to EtOH. Unable to get IV access with multiple nurse attempts. I tried US guided IV without success. Got flash, could not threat. [employer] HELPER here to start IV. IV obtained. Pt remained stable throughout ER course. Disposition/Rx Discharged with: Admit Inpatient Course Course 08/15/25 14:08 08/15/25 14:08 Orders, Labs, Meds: Lab Review 08/15/25 14:08 WBC 5.28 RBC 3.59 L Hgb 9.6 L Hct 31.4 L MCV 87.5 MCH 26.7 L MCHC 30.6 L RDW Coeff of Delia 17.7 H Plt Count 139 L Immature Gran % (Auto) 0.2 Neut % (Auto) 51.5 Lymph % (Auto) 30.7 Banner % (Auto) 11.6 H Eos % (Auto) 5.1 Baso % (Auto) 0.9 Neut # (Auto) 2.7 Lymph # (Auto) 1.6 Banner # (Auto) 0.6 Eos # (Auto) 0.3 Baso # (Auto) 0.1 Immature Gran # (Auto) 0.0 Sodium 128.3 L Potassium 4.05 Chloride 95.4 L Carbon Dioxide 25.6 Anion Gap 11.35 BUN 23.5 H Creatinine 2.62 H Estimated GFR (MDRD) 24.00 BUN/Creatinine Ratio 8.96 Glucose 110.1 H Calcium 8.78 Phosphorus 5.22 H Magnesium 1.03 L Total Bilirubin 0.67 AST 27.4 ALT 18.4 Alkaline Phosphatase 66.4 Troponin I < 0.012 Total Protein 7.47 Albumin 4.37 Globulin 3.10 Albumin/Globulin Ratio 1.40 TSH 3.410 Plasma/Serum Alcohol < 10.0 Orders Category Date Time Status ADMIT PATIENT INPATIENT .TO [facility] (MONITORED BED) ADMISSION 08/15/25 14:46 Active EKG-(ED & IP/OBS ONLY) Stat CARDIO 08/15/25 13:53 Completed ACTIVITY .Up With Assistance CARE 08/15/25 14:46 Active INTAKE & OUTPUT Q8HR CARE 08/15/25 14:46 Active TELEMETRY MONITORING TELE CARE 08/15/25 14:46 Active VITAL SIGNS Q4HR CARE 08/15/25 14:47 Active CARDIAC DIET DIETARY 08/15/25 Dinner Ordered ED IV/MEDIPORT/POWERPORT .ONCE EMERGENCY 08/15/25 13:53 Active BLOOD ALCOHOL Stat LAB 08/15/25 14:08 Completed CBC W/ AUTO DIFF DAILY@0600 LAB 08/16/25 06:00 Ordered CBC W/ AUTO DIFF DAILY@0600 LAB 08/17/25 06:00 Ordered CBC W/ AUTO DIFF Stat LAB 08/15/25 14:08 Completed COMPREHENSIVE METABOLIC PANEL DAILY@0600 LAB 08/16/25 06:00 Ordered COMPREHENSIVE METABOLIC PANEL DAILY@0600 LAB 08/17/25 06:00 Ordered COMPREHENSIVE METABOLIC PANEL Stat LAB 08/15/25 14:08 Completed CREATININE, URINE Routine LAB 08/15/25 Ordered DRUG SCREEN, URINE, RAPID Stat LAB 08/15/25 13:53 Uncollected MAGNESIUM DAILY@0600 LAB 08/16/25 06:00 Ordered MAGNESIUM DAILY@0600 LAB 08/17/25 06:00 Ordered MAGNESIUM Stat LAB 08/15/25 14:08 Completed PHOSPHORUS Stat LAB 08/15/25 14:08 Completed SODIUM,URINE Routine LAB 08/15/25 Ordered THYROID STIMULATING HORMONE Stat LAB 08/15/25 14:08 Completed TROPONIN I Stat LAB 08/15/25 14:08 Completed URINALYSIS C & S IF INDICATED Stat LAB 08/15/25 13:53 Uncollected 0.9 % Sodium Chloride [Saline Flush] Meds 08/15/25 13:53 Active 1 syr IVF PRN PRN Acetaminophen [Tylenol] Meds 08/15/25 14:46 Active 650 mg PO Q4H PRN Folic Acid Meds 08/16/25 09:00 Active 1 mg PO DAILY Magnesium Sulfate in Water [Magnesium Sulf 2 G/50 ml Meds 08/15/25 14:46 Discontinued Bag] 2 gm in 50 ml IV ONCE Magnesium Sulfate in Water [Magnesium Sulf 2 G/50 ml Meds 08/15/25 17:00 Active Bag] 2 gm in 50 ml IV ONCE Multivitamin [Multivitamin Tablet] Meds 08/16/25 09:00 Active 1 tab PO DAILY Ondansetron HCl/Pf [Zofran Sdv] Meds 08/15/25 14:46 Active 4 mg IVP Q6H PRN Sodium Chloride 0.9% [Sodium Chloride] 1,000 ml Meds 08/15/25 15:00 Active IV 125 mls/hr Sodium Chloride 0.9% [Sodium Chloride] 500 ml Meds 08/15/25 13:54 Discontinued IV BOLUS Vitamin B-1 Inj [Thiamine] 100 mg Meds 08/15/25 13:54 Discontinued 0.9 % Sodium Chloride [Sodium Chloride] 50 ml IV ONCE Vitamin B-1 [Thiamine] Meds 08/16/25 09:00 Active 100 mg PO DAILY CHEST, 1V AP ONLY Stat RADS 08/15/25 14:06 Completed Medications Generic Name Dose Route Start Last Admin Trade Name Freq PRN Reason Stop Dose Admin Acetaminophen 650 mg 08/15/25 14:46 Acetaminophen 325 Mg Tablet PO Q4H PRN Mild Pain Folic Acid 1 mg 08/16/25 09:00 Folic Acid 1 Mg Tablet PO DAILY BERNARDO Sodium Chloride 1,000 mls @ 125 mls/hr 08/15/25 15:00 08/15/25 16:07 Sodium Chloride IV 125 mls/hr .Q8H BERNARDO Administration MAGNESIUM SULFATE IN WATER 2 gm in 50 mls @ 25 mls/hr 08/15/25 17:00 Magnesium Sulf 2 G/50 Ml Bag IV 08/15/25 18:59 ONCE ONE Multivitamins 1 tab 08/16/25 09:00 Multivitamin 1 Tab PO DAILY BERNARDO Ondansetron HCl 4 mg 08/15/25 14:46 Ondansetron Hcl/Pf 4 Mg/2 Ml Sdv IVP Q6H PRN Nausea / Vomiting Sodium Chloride 1 syr 08/15/25 13:53 0.9% Sodium Chloride 10 Ml Disp.Syrin IVF PRN PRN To flush IV Thiamine HCl 100 mg 08/16/25 09:00 Vitamin B-1 100 Mg Tablet PO DAILY BERNARDO Discontinued Medications Generic Name Dose Route Start Last Admin Trade Name Freq PRN Reason Stop Dose Admin Thiamine HCl 100 mg/ Sodium 51 mls @ 100 mls/hr 08/15/25 13:54 08/15/25 16:10 Chloride IV 08/15/25 14:24 100 mls/hr ONCE ONE Administration Sodium Chloride 500 mls @ 250 mls/hr 08/15/25 13:54 08/15/25 16:07 Sodium Chloride IV 08/15/25 15:53 Not Given BOLUS ONE MAGNESIUM SULFATE IN WATER 2 gm in 50 mls @ 25 mls/hr 08/15/25 14:46 Magnesium Sulf 2 G/50 Ml Bag IV 08/15/25 16:45 ONCE ONE Lidocaine HCl 5 ml 08/15/25 15:54 08/15/25 15:56 Lidocaine 1% 5 Ml Sdv SUBCUT 08/15/25 15:55 5 ml ONCE ONE Administration Vital Signs: Temp Pulse Resp BP Pulse Ox 08/15/25 13:46 97.2 F L 78 18 115/75 97 Discharge Plan Discharge Patient Disposition: ADMITTED INPATIENT Discharge Problem: Acute kidney injury, Hypomagnesemia, Chronic alcohol use Did you review [place] [employer] for ALL controlled substances?: Not Applicable ED Provider: PILLO VANN Condition: Poor
[2025-08-15 14:13] LABS: IMMATURE GRANULOCYTE # (AUTO) 0.0 (0.0-1.0); IMMATURE GRANULOCYTE % (AUTO) 0.2 % (0.0-5.0); RDW COEFFICIENT OF VARIATION 17.7 % (11.6-14.8)
[2025-08-15 14:26] LABS: CREATININE 2.62 mg/dL (0.60-1.10); PHOSPHORUS 5.22 mg/dL (2.5-4.5)
[2025-08-15 14:28] LABS: BLOOD ALCOHOL < 10.0 mg/dL (0.0-50.0)
--- NOTE | 2025-08-15 14:43 | DI ---
EXAM: CHEST RADIOGRAPH TECHNIQUE: Single frontal chest radiograph. HISTORY: Hypotension COMPARISON: 07/25/2025 IMPRESSION: No acute findings. The heart size is normal. Mediastinal contours and pulmonary vasculature are within normal limits. The lungs are clear. There is no pleural effusion. There is no pneumothorax.
[2025-08-15] MEDS ORDERED: ZOFRAN SDV IVP PRN (14:46)
[2025-08-15] MEDS ORDERED: TYLENOL PO PRN (14:46)
--- NOTE | 2025-08-15 14:52 | PCM ---
Date of Service Date Seen by Provider: 08/15/25 Time Seen by Provider: 15:00 Admit Day/Time Admission Date: 08/15/25 Admission Time: 14:46 Reason for Admission Chief Complaint: ACUTE KIDNEY INJURY Hospital Provider Hospital Provider: Angel Serna PA-C, [facility] Primary Care Physician Primary Care Physician: SHANNON BLACK APRN History of Present Illness History of Present Illness: Patient is a 70 year old male from home with pmhx of chronic alcohol use, hypomagnesemia, PAD, PUD, hyperlipidemia, heart disease, esophageal varices, hypertension, COPD, DM who presented to ER with overall not feeling well. Patient had been to pain management and didn't feel well, BP reading was low. He was brought to ER. Patient had a very similar experience about a month ago due to NED. In ER this visit, his Cr is 2.6, baseline 0.9. His mag was 1. BP stable in ER. He was given fluids and admitted to [facility]. Patient is a daily drinker. He is vague about how much fluid he drinks other than beer. He doesn't think he filled the magnesium supplement from last hospitalization. He denies NSAID use. States he thinks he eats and drinks ok at home overall. Case Discussed With Case Discussed With: Patient's case was discussed with the ER Physicians, Dr. Shelby. [facility] Medical History COPD exacerbation J44.1 - Chronic obstructive pulmonary disease with (acute) exacerbation (ICD-10) Dehydration E86.0 - Dehydration (ICD-10) Abdominal pain R10.9 - Unspecified abdominal pain (ICD-10) Acute kidney injury N17.9 - Acute kidney failure, unspecified (ICD-10) DVT (deep venous thrombosis) left leg I82.409 - Acute embolism and thrombosis of unspecified deep veins of unspecified lower extremity (ICD-10) Syncope and collapse R55 - Syncope and collapse (ICD-10) Esophageal thickening K22.89 - Other specified disease of esophagus (ICD-10) Surgical History Hx of neck surgery Z98.890 - Other specified postprocedural states (ICD-10) Previous back surgery Z98.890 - Other specified postprocedural states (ICD-10) History of appendectomy Z90.49 - Acquired absence of other specified parts of digestive tract (ICD- 10) History of vein stripping Dr. Mendoza Z98.890 - Other specified postprocedural states (ICD-10) Family History FATHER Diabetes Hypertension Mother Diabetes Hypertension SISTER Diabetes BROTHER Diabetes Social History Smoking and tobacco status: Current every day smoker Tobacco type: cigarettes Smoking packs per day: 1 Smoking cigarettes per day: 20.0 Alcohol intake: current Alcohol intake frequency: 3 or more drinks per day Alcohol type: beer Substance use type: former substance user Special antonio needs: No Agree to transfusion: Yes Adopted: No Caregiver/support person: No Foster care: No Household members: none Housing: house Marital status: D Lives independently: Yes Number of children: 2 Highest education level completed: high school graduate Financial difficulty paying for basics: not very hard service: No half-way: No Current occupational status: disabled History of recent travel: No Do you think of yourself as: straight/heterosexual Current gender identity: male Seatbelt use: always Drives intoxicated or rides with 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 Current diet type/program: regular Water heater temperature set < 120 degrees: Yes Working smoke detector in home: Yes Fire extinguisher in home: Yes Carbon monoxide detector in home: Yes What type of physical activity do you participate in?: walking Allergies Allergies Allergy/AdvReac Type Severity Reaction Status Date / Time codeine Allergy Unknown Verified 08/15/25 16:38 Penicillins Allergy Unknown Verified 08/15/25 16:38 Current Medications Home Medications Acetaminophen (Acetaminophen 325 Mg Tablet) 650 mg PO Q4H PRN PRN Reason: Mild Pain Hydrocodone Bitart/Acetaminophen (Hydrocodone Bit/Acetaminophen 10/325 Mg Tablet) 1 tab PO Q6H PRN PRN Reason: MODERATE PAIN Last Admin: 08/15/25 20:25 Dose: 1 tab Albuterol Sulfate (Albuterol Sulfate 8 Gm Inhaler) 2 puff IH RTQID PRN PRN Reason: sob Atorvastatin Calcium (Atorvastatin Calcium 20 Mg Tablet) 20 mg PO DAILY BERNARDO Last Admin: 08/16/25 09:14 Dose: 20 mg Escitalopram Oxalate (Escitalopram Oxalate 10 Mg Tablet) 10 mg PO DAILY [facility] Last Admin: 08/16/25 09:14 Dose: 10 mg Folic Acid (Folic Acid 1 Mg Tablet) 1 mg PO DAILY [facility] Last Admin: 08/16/25 09:14 Dose: 1 mg Sodium Chloride (Sodium Chloride) 1,000 mls @ 125 mls/hr IV .Q8H [facility] Last Admin: 08/16/25 01:27 Dose: 125 mls/hr MAGNESIUM SULFATE IN WATER (Magnesium Sulf 2 G/50 Ml Bag) 2 gm in 50 mls @ 25 mls/hr IV ONCE ONE Stop: 08/16/25 10:37 Magnesium Oxide (Magnesium Oxide 400 Mg Tablet) 400 mg PO DAILY [facility] Last Admin: 08/16/25 09:13 Dose: 400 mg Metoprolol Tartrate (Metoprolol Tartrate 50 Mg Tablet) 50 mg PO DAILY [facility] Last Admin: 08/16/25 09:13 Dose: 50 mg Multivitamins (Multivitamin 1 Tab) 1 tab PO DAILY [facility] Last Admin: 08/16/25 09:14 Dose: 1 tab Ondansetron HCl (Ondansetron Hcl/Pf 4 Mg/2 Ml Sdv) 4 mg IVP Q6H PRN PRN Reason: Nausea / Vomiting Pantoprazole Sodium (Pantoprazole Sodium 40 Mg Tablet.Dr) 40 mg PO BIDAC2 [facility] Pregabalin (Pregabalin 50 Mg Capsule) 100 mg PO BID [facility] Last Admin: 08/16/25 09:13 Dose: 100 mg Sodium Chloride (0.9% Sodium Chloride 10 Ml Disp.Syrin) 1 syr IVF PRN PRN PRN Reason: To flush IV Last Admin: 08/15/25 20:26 Dose: 1 syr Thiamine HCl (Vitamin B-1 100 Mg Tablet) 100 mg PO DAILY [facility] Last Admin: 08/16/25 09:14 Dose: 100 mg pantoprazole 40 mg tablet,delayed release (Protonix) 40 mg PO BID #60 tabs 02/13/25 [Rx Confirmed 08/15/25] atorvastatin 20 mg tablet (Lipitor) 20 mg PO DAILY 07/25/25 [History Confirmed 08/15/25] escitalopram oxalate 10 mg tablet (Lexapro) 10 mg PO DAILY 07/25/25 [History Confirmed 08/15/25] magnesium oxide 400 mg (241.3 mg magnesium) tablet 400 mg PO DAILY #30 tabs 07/27/25 [Rx Confirmed 08/15/25] metoprolol tartrate 50 mg tablet 50 mg PO DAILY #30 tabs 07/27/25 [Rx Confirmed 08/15/25] albuterol sulfate 90 mcg/actuation aerosol inhaler 2 puff inhalation QID PRN shortness of breath or wheezing #8.5 grams 07/31/25 [Rx Confirmed 08/15/25] hydrocodone 10 mg-acetaminophen 325 mg tablet 1 tab PO Q6H PRN pain #120 tabs 07/31/25 [Rx Confirmed 08/15/25] pregabalin 100 mg capsule 100 mg PO BID #60 caps 07/31/25 [Rx Confirmed 08/15/25] Opioid Naive vs. Tolerant Does Patient Take Opioids?: Yes Is Patient Opioid Naive?: No What is Opioid Naive?: *Opioid Naive implies the patient is not already taking opioids or not chronically receiving opioids on a daily basis. *PRN dosing is not "usually" associated with tolerance. *Patients are at higher risk of over-sedation and aspiration. Is Patient Opioid Tolerant?: No What is Opioid Tolerant?: *Opioid Tolerance implies less than the expected response to an opioid. *Acquired tolerance is defined by the patient taking 60mg of oral morphine daily (or equianalgesic dose of another opioid) for 1 week or more. *Often associated with chronic pain. *May take more than usual dose to achieve desired pain control. Review of Systems Constitutional: Reports Fatigue and Weakness; Denies Fever Head: Reports Normocephalic and Atraumatic Cardiovascular: Denies Chest pain Respiratory: Denies Cough or Shortness of air Gastrointestinal: Denies Nausea, Vomiting, Diarrhea, Abdominal pain or Melena Genitourinary: Denies Dysuria Neurological: Reports Dizziness and Weakness Physical examination Most Recent Vital Signs: Most Recent Vital Signs Temperature 97.2 F L 08/15/25 13:46 Temperature Source Infrared 08/15/25 13:46 Pulse Rate 78 08/15/25 13:46 Respiratory Rate 18 08/15/25 13:46 Blood Pressure 115/75 08/15/25 13:46 O2 Sat by Pulse Oximetry 97 08/15/25 13:46 Height 6 ft 08/15/25 13:46 Weight 80.8 kg 08/15/25 13:46 Telemetry Heart Rate 64 07/27/25 07:00 Telemetry SPO2 97 04/20/25 09:07 Appearance: Positive No Apparent Distress and Alert and Oriented x3 Skin: Positive [place] and Warm HEENT: Positive Normocephalic and Atraumatic; Negative Oral Mucous Moist Neck: Positive Supple and Midline Trachea Chest/Lungs: Positive Clear to Auscultation Bilaterally; Negative Rales, Rhonci or Wheezes Heart: Positive RRR GI/: Positive Soft, Nontender, Bowel Sounds Normal and No Distention Extremities: Negative Edema Neurological: Positive Cranial Nerves Intact, Alert, Oriented and Muscle Strength 5/5 in Upper and Lower Extremities Bilaterally Psychiatric: Positive Oriented x4, Appropriate Mood and Appropriate Affect Labs This Visit Labs This Visit: Labs This Visit 08/15/25 14:08 WBC 5.28 RBC 3.59 L Hgb 9.6 L Hct 31.4 L MCV 87.5 MCH 26.7 L MCHC 30.6 L RDW Coeff of Delia 17.7 H Plt Count 139 L Immature Gran % (Auto) 0.2 Neut % (Auto) 51.5 Lymph % (Auto) 30.7 [place] % (Auto) 11.6 H Eos % (Auto) 5.1 Baso % (Auto) 0.9 Neut # (Auto) 2.7 Lymph # (Auto) 1.6 [place] # (Auto) 0.6 Eos # (Auto) 0.3 Baso # (Auto) 0.1 Immature Gran # (Auto) 0.0 Sodium 128.3 L Potassium 4.05 Chloride 95.4 L Carbon Dioxide 25.6 Anion Gap 11.35 BUN 23.5 H Creatinine 2.62 H Estimated GFR (MDRD) 24.00 BUN/Creatinine Ratio 8.96 Glucose 110.1 H Calcium 8.78 Phosphorus 5.22 H Magnesium 1.03 L Total Bilirubin 0.67 AST 27.4 ALT 18.4 Alkaline Phosphatase 66.4 Troponin I < 0.012 Total Protein 7.47 Albumin 4.37 Globulin 3.10 Albumin/Globulin Ratio 1.40 Plasma/Serum Alcohol < 10.0 Imaging Imaging: EXAM: CHEST RADIOGRAPH TECHNIQUE: Single frontal chest radiograph. HISTORY: Hypotension COMPARISON: 07/25/2025 IMPRESSION: No acute findings. The heart size is normal. Mediastinal contours and pulmonary vasculature are within normal limits. The lungs are clear. There is no pleural effusion. There is no pneumothorax. Review Statement Review Statement: I have independently reviewed and interpreted the labs/EKGs/imaging that were ordered by the ER provider. I have reviewed all outside records that are available currently in our EMR including imaging/notes/labs from previous visits. Plan Plan: 1. NED, stage I - NS at 125 ml/hr ordered. Check urine sodium and cr. 2. Hypomagnesemia - 4 gm mag rider ordered. 3. Chronic alcoholism - Will start CIWA monitoring if needed, patient tolerated hospitalization well last month 4. COPD - baseline, no acute exacerbation 5. Hypertension - Restart metoprolol tomorrow 6. GERD - Cont home meds 7. Hyperlipidemia - Cont home meds 8. Depression - Cont home meds DVT Prophylaxis: Ambulation Time Spent: Greater than 80 minutes spent with patient, 50% of the time spent with this patient was devoted to counseling and coordination of care. [facility] Plannin minutes spent discussing advance care planning. Smoking Cessation: 3 minutes spent discussing smoking cessation. Admit to: Inpatient Discussed Plan of Care with Dr. Kiko Judge. Medications Medication Orders: Medications Ordered Category Date Time Status 0.9 % Sodium Chloride [Saline Flush] Meds 08/15/25 13:53 Active 1 syr IVF PRN PRN Acetaminophen [Tylenol] Meds 08/15/25 14:46 Active 650 mg PO Q4H PRN Folic Acid Meds 08/16/25 09:00 Active 1 mg PO DAILY Magnesium Sulfate in Water [Magnesium Sulf 2 G/50 ml Meds 08/15/25 14:46 Ordered Bag] 2 gm in 50 ml IV ONCE Magnesium Sulfate in Water [Magnesium Sulf 2 G/50 ml Meds 08/15/25 17:00 Orde red Bag] 2 gm in 50 ml IV ONCE Multivitamin [Multivitamin Tablet] Meds 08/16/25 09:00 Active 1 tab PO DAILY Ondansetron HCl/Pf [Zofran Sdv] Meds 08/15/25 14:46 Active 4 mg IVP Q6H PRN Sodium Chloride 0.9% [Sodium Chloride] 1,000 ml Meds 08/15/25 15:00 Active IV 125 mls/hr Sodium Chloride 0.9% [Sodium Chloride] 500 ml Meds 08/15/25 13:54 Active IV BOLUS Vitamin B-1 [Thiamine] Meds 08/16/25 09:00 Active 100 mg PO DAILY
[2025-08-15] MEDS: LIDOCAINE 2% 20 ML MDV INJ ONE (15:54)
[2025-08-15] MEDS: LIDOCAINE 1% 5 ML SDV ONE (15:55)
[2025-08-15] MEDS: LIDOCAINE 1% 5 ML SDV SUBCUT ONE (15:56)
[2025-08-15] MEDS: SODIUM CHLORIDE 500 ML IV ONE (16:07)
[2025-08-15] MEDS: SODIUM CHLORIDE 1,000 ML IV SCH (16:07)
[2025-08-15] MEDS: THIAMINE ONE (16:10)
[2025-08-15] MEDS: THIAMINE 100 MG in SODIUM CHLORIDE 50 ML IV ONE (16:10)
[2025-08-15 17:03] VITALS: BMI 24.0
[2025-08-15] MEDS: MAGNESIUM SULF 2 G/50 ML BAG 2 GM/50 ML PIGGYBACK IV ONE ×2 (17:22→19:35)
[2025-08-15] MEDS ORDERED: VENTOLIN HFA IH PRN (17:53)
[2025-08-15] MEDS: NORCO 10-325 PO PRN (20:25)
[2025-08-15] MEDS: PROTONIX PO SCH (20:25)
[2025-08-15] MEDS: LYRICA PO SCH (20:25)
[2025-08-16 05:25] LABS: IMMATURE GRANULOCYTE # (AUTO) 0.0 (0.0-1.0); IMMATURE GRANULOCYTE % (AUTO) 0.3 % (0.0-5.0); RDW COEFFICIENT OF VARIATION 17.6 % (11.6-14.8)
[2025-08-16 05:38] LABS: CREATININE 1.6 mg/dL (0.60-1.10)
[2025-08-16 06:48] LABS: GLUCOSE, URINE (UA) Negative (NEGATIVE); LEUKOCYTE ESTERASE ,URINE Negative (NEGATIVE); URINE, BLOOD Negative (NEGATIVE)
[2025-08-16 06:58] LABS: AMPHETAMINE SCREEN,URINE NEGATIVE (NEGATIVE); CANNABINOID SCREEN,URINE NEGATIVE (NEGATIVE); COCAIN SCREEN,URINE NEGATIVE (NEGATIVE); METHADONE URINE SCREEN NEGATIVE (NEGATIVE); METHAMPHETAMINES SCREEN,URINE NEGATIVE (NEGATIVE); OXYCODONE URINE SCREEN NEGATIVE (NEGATIVE); TRICYCLIC ANTIDEPRESSANTS URIN NEGATIVE (NEGATIVE)
[2025-08-16] MEDS: LOPRESSOR PO SCH (09:13)
[2025-08-16] MEDS: MAG-OX PO SCH (09:13)
[2025-08-16] MEDS: FOLIC ACID PO SCH (09:14)
[2025-08-16] MEDS: LEXAPRO PO SCH (09:14)
[2025-08-16] MEDS: MULTIVITAMIN TABLET PO SCH (09:14)
[2025-08-16] MEDS: THIAMINE PO SCH (09:14)
[2025-08-16] MEDS: LIPITOR PO SCH (09:14)
--- NOTE | 2025-08-16 09:56 | PCM.PROG ---
Date/Time Seen Date Seen by Provider: 08/16/25 Time Seen by Provider: 09:00 Provider Provider: ANGEL SERNA PA-C, [facility] Chief Complaint Chief Complaint: ACUTE KIDNEY INJURY Subjective Subjective: Patient has no complaints. Denies dizziness/lightheadedness. Cr better but not at baseline. No signs of withdrawal. Objective Appearance: Positive No Apparent Distress and Alert and Oriented x3 Chest/Lungs: Positive Clear to Auscultation Bilaterally; Negative Rales, Rhonci or Wheezes Heart: Positive RRR GI/: Positive Soft, Nontender, Bowel Sounds Normal and No Distention Neurological: Positive Cranial Nerves Intact, Alert, Oriented and Muscle Strength 5/5 in Upper and Lower Extremities Bilaterally Vital Signs Vital Signs: Vital Signs: Last 24 Hours 08/15/25 13:46 08/15/25 16:35 08/15/25 16:51 Temperature 97.2 F L 97.1 F L Temperature Source Infrared Temporal Artery Scan Pulse Rate 78 82 81 Respiratory Rate 18 16 18 Blood Pressure 115/75 129/53 L Blood Pressure Mean Blood Pressure Left Arm 147/83 Blood Pressure Location Blood Pressure Position Supine O2 Sat by Pulse Oximetry 97 97 96 Oxygen Delivery Method Room Air Height 6 ft 6 ft Weight 80.8 kg 80.5 kg Telemetry Type Telemetry Monitoring Telemetry Heart Rate EKG PA Interval EKG QRS Interval Telemetry Strip Reading 08/15/25 18:00 08/15/25 19:00 08/15/25 21:13 Temperature 96.8 F L 96.7 F L Temperature Source Temporal Artery Scan Tympanic Pulse Rate 89 83 Respiratory Rate 20 18 Blood Pressure 113/67 127/63 Blood Pressure Mean 82 84 Blood Pressure Left Arm Blood Pressure Location Left Arm Left Arm Blood Pressure Position O2 Sat by Pulse Oximetry 96 95 Oxygen Delivery Method Room Air Room Air Height Weight Telemetry Type Remote Telemetry Telemetry Monitoring Continues Telemetry Heart Rate 85 EKG PA Interval 0.20 EKG QRS Interval 0.07 Telemetry Strip Reading NSR 08/16/25 01:00 08/16/25 01:30 08/16/25 05:04 Temperature 96.9 F L 97.9 F Temperature Source Tympanic Tympanic Pulse Rate 74 72 Respiratory Rate 18 18 Blood Pressure 126/64 156/84 H Blood Pressure Mean 84 108 Blood Pressure Left Arm Blood Pressure Location Left Arm Left Arm Blood Pressure Position Supine O2 Sat by Pulse Oximetry 97 96 Oxygen Delivery Method Room Air Room Air Height Weight Telemetry Type Remote Telemetry Telemetry Monitoring Continues Telemetry Heart Rate 76 EKG PA Interval 0.20 EKG QRS Interval 0.06 Telemetry Strip Reading SR Lab Results Lab Results: Lab Results: Last 24 Hours 08/16/25 08/16/25 08/15/25 06:36 05:13 14:08 WBC 3.24 L 5.28 RBC 3.01 L 3.59 L Hgb 7.9 L 9.6 L Hct 26.6 L 31.4 L MCV 88.4 87.5 MCH 26.2 L 26.7 L MCHC 29.7 L 30.6 L RDW Coeff of Delia 17.6 H 17.7 H Plt Count 91 L D 139 L Immature Gran % (Auto) 0.3 0.2 Neut % (Auto) 43.6 51.5 Lymph % (Auto) 36.4 30.7 [place] % (Auto) 14.2 H 11.6 H Eos % (Auto) 4.6 5.1 Baso % (Auto) 0.9 0.9 Neut # (Auto) 1.4 L 2.7 Lymph # (Auto) 1.2 1.6 [place] # (Auto) 0.5 0.6 Eos # (Auto) 0.2 0.3 Baso # (Auto) 0.0 0.1 Immature Gran # (Auto) 0.0 0.0 Sodium 131.8 L 128.3 L Potassium 3.69 4.05 Chloride 101.6 95.4 L Carbon Dioxide 26.2 25.6 Anion Gap 7.69 11.35 BUN 23.1 H 23.5 H Creatinine 1.60 H D 2.62 H Estimated GFR (MDRD) 43.00 24.00 BUN/Creatinine Ratio 14.43 8.96 Glucose 115.4 H 110.1 H Calcium 8.23 L 8.78 Phosphorus 5.22 H Magnesium 1.75 1.03 L Total Bilirubin 0.45 0.67 AST 26.0 27.4 ALT 12.7 18.4 Alkaline Phosphatase 55.6 L 66.4 Troponin I < 0.012 Total Protein 6.22 L 7.47 Albumin 3.49 L 4.37 Globulin 2.73 3.10 Albumin/Globulin Ratio 1.27 1.40 TSH 3.410 Urine Color Yellow Urine Clarity Clear Urine pH 5.5 Ur Specific [place] 1.015 Urine Protein Negative Urine Glucose (UA) Negative Urine Ketones Negative Urine Blood Negative Urine Nitrite Negative Urine Bilirubin Negative Urine Urobilinogen 0.2 Ur Leukocyte Esterase Negative Urine Opiates Screen Positive H Ur Oxycodone Screen Negative Urine Methadone Screen Negative Ur Barbiturates Screen Negative U Tricyclic Antidepress Negative Ur Phencyclidine Scrn Negative Ur Amphetamine Screen Negative U Methamphetamines Scrn Negative U Benzodiazepines Scrn Negative Urine Cocaine Screen Negative U Cannabinoids Screen Negative Plasma/Serum Alcohol < 10.0 Additional Comments Additional Comments: I have independently reviewed and interpreted the labs/EKGs/imaging ordered during this hospital stay. I have reviewed outside records that are available in our EMR that pertain to medical stay including imaging/notes/labs from previous visits. Active Medications Active Medications: Medications Generic Name Dose Route Start Last Admin Trade Name Freq PRN Reason Stop Dose Admin Acetaminophen 650 mg 08/15/25 14:46 Acetaminophen 325 Mg Tablet PO Q4H PRN Mild Pain Hydrocodone Bitart/Acetaminophen 1 tab 08/15/25 17:53 08/15/25 20:25 Hydrocodone Bit/Acetaminophen 10/325 Mg Tablet PO 1 tab Q6H PRN Administration MODERATE PAIN Albuterol Sulfate 2 puff 08/15/25 17:53 Albuterol Sulfate 8 Gm Inhaler IH RTQID PRN sob Atorvastatin Calcium 20 mg 08/16/25 09:00 08/16/25 09:14 Atorvastatin Calcium 20 Mg Tablet PO 20 mg DAILY BERNARDO Administration Escitalopram Oxalate 10 mg 08/16/25 09:00 08/16/25 09:14 Escitalopram Oxalate 10 Mg Tablet PO 10 mg DAILY BERNARDO Administration Folic Acid 1 mg 08/16/25 09:00 08/16/25 09:14 Folic Acid 1 Mg Tablet PO 1 mg DAILY BERNARDO Administration Sodium Chloride 1,000 mls @ 125 mls/hr 08/15/25 15:00 08/16/25 01:27 Sodium Chloride IV 125 mls/hr .Q8H BERNARDO Administration MAGNESIUM SULFATE IN WATER 2 gm in 50 mls @ 25 mls/hr 08/16/25 08:38 Magnesium Sulf 2 G/50 Ml Bag IV 08/16/25 10:37 ONCE ONE Magnesium Oxide 400 mg 08/16/25 09:00 08/16/25 09:13 Magnesium Oxide 400 Mg Tablet PO 400 mg DAILY BERNARDO Administration Metoprolol Tartrate 50 mg 08/16/25 09:00 08/16/25 09:13 Metoprolol Tartrate 50 Mg Tablet PO 50 mg DAILY BERNARDO Administration Multivitamins 1 tab 08/16/25 09:00 08/16/25 09:14 Multivitamin 1 Tab PO 1 tab DAILY BERNARDO Administration Ondansetron HCl 4 mg 08/15/25 14:46 Ondansetron Hcl/Pf 4 Mg/2 Ml Sdv IVP Q6H PRN Nausea / Vomiting Pantoprazole Sodium 40 mg 08/16/25 17:00 Pantoprazole Sodium 40 Mg Tablet.Dr PO BIDAC2 BERNARDO Pregabalin 100 mg 08/15/25 21:00 08/16/25 09:13 Pregabalin 50 Mg Capsule PO 100 mg BID BERNARDO Administration Sodium Chloride 1 syr 08/15/25 13:53 08/15/25 20:26 0.9% Sodium Chloride 10 Ml Disp.Syrin IVF 1 syr PRN PRN Administration To flush IV Thiamine HCl 100 mg 08/16/25 09:00 08/16/25 09:14 Vitamin B-1 100 Mg Tablet PO 100 mg DAILY BERNARDO Administration Plan Plan: 1. NED, stage I - Improved, cont NS at 125 ml/hr. Urine sodium and cr pending. 2. Hypomagnesemia - Improved, give another mag 2 mg rider today. 3. Chronic alcoholism - Will start CIWA monitoring if needed, patient tolerated hospitalization well last month 4. COPD - baseline, no acute exacerbation 5. Hypertension - Cont home meds 6. GERD - Cont home meds 7. Hyperlipidemia - Cont home meds 8. Depression - Cont home meds 9. Chronic anemia - worsened today, likely dilutional, will monitor DVT Prophylaxis: Ambulation Review Statement Review Statement: I have personally discussed and reviewed the patient's visit/currently labs/ros ging/decision making with Dr. Judge, my supervising attending. Greater that 50 minutes spent with patient, 50% of the time spent with this patient was devoted to counseling and coordination of care.
[2025-08-16] MEDS: MAGNESIUM SULF 2 G/50 ML BAG 2 GM/50 ML PIGGYBACK IV ONE (11:06)
[2025-08-16] MEDS: PROTONIX PO SCH (17:22)
[2025-08-17 02:10] VITALS: RESP 16
[2025-08-17 05:34] LABS: IMMATURE GRANULOCYTE # (AUTO) 0.0 (0.0-1.0); IMMATURE GRANULOCYTE % (AUTO) 0.3 % (0.0-5.0); RDW COEFFICIENT OF VARIATION 17.7 % (11.6-14.8)
[2025-08-17 05:45] LABS: CREATININE 1.31 mg/dL (0.60-1.10)
[2025-08-17] MEDS: MAGNESIUM SULF 2 G/50 ML BAG 2 GM/50 ML PIGGYBACK IV ONE ×2 (09:06→12:36)
--- NOTE | 2025-08-17 10:45 | DCSUM ---
Admission Date Admission Date: 08/15/25 Discharge Date Discharge Date: 08/17/25 Admission Diagnosis Admission Diagnosis: 1. NED, stage I 2. Hypomagnesemia 3. Chronic alcoholism Discharge Diagnosis Discharge Diagnosis: 1. NED, stage I - Resolved 2. Hypomagnesemia - Improved 3. Chronic alcoholism 4. COPD - Chronic 5. Hypertension - Chronic 6. GERD - Chronic 7. Hyperlipidemia - Chronic 8. Depression - Chronic 9. Chronic anemia - Chronic Hospital Provider Hospital Provider: ANGEL SERNA PA-C, [facility] Primary Care Physician Primary Care Physician: SHANNON BLACK APRN Summary of History and Physical Summary of History and Physical: Patient is a 70 year old male from home with pmhx of chronic alcohol use, hypom agnesemia, PAD, PUD, hyperlipidemia, heart disease, esophageal varices, hypertension, COPD, DM who presented to ER with overall not feeling well. Patient had been to pain management and didn't feel well, BP reading was low. He was brought to ER. Patient had a very similar experience about a month ago due to NED. In ER this visit, his Cr is 2.6, baseline 0.9. His mag was 1. BP stable in ER. He was given fluids and admitted to [facility]. Patient is a daily drinker. He is vague about how much fluid he drinks other than beer. He doesn't think he filled the magnesium supplement from last hospitalization. He denies NSAID use. States he thinks he eats and drinks ok at home overall. Hospital Course Subjective: Patient's Cr is near baseline after receiving fluids. Magnesium had dropped low again this morning so today he received 2 more mag riders for a total of 4 mag riders. He has no complaints or symptoms. He has been advised to cut back on drinking alcohol and to drink more water. He has been prescribed a magnesium supplement bid. Otherwise uneventful stay. He agrees to plan of care. F/u with pcp. Appearance: No Apparent Distress and Alert HEENT: MMM and Supple CVS: No Murmur Abdomen: Soft and Non-Tender Respiratory: No Dyspnea Extremities: No Edema Vital Signs: Most Recent Vital Signs Temperature 97.4 F L 08/17/25 10:00 Temperature Source Temporal Artery Scan 08/17/25 10:00 Temperature Source Infrared 08/15/25 13:46 Pulse Rate 66 08/17/25 10:00 Respiratory Rate 16 08/17/25 05:43 Blood Pressure 139/68 08/17/25 10:00 Blood Pressure Mean 91 08/17/25 10:00 Blood Pressure Left Arm 147/83 08/15/25 16:51 Blood Pressure Location Left Arm 08/17/25 10:00 Blood Pressure Position Supine 08/17/25 10:00 O2 Sat by Pulse Oximetry 97 08/17/25 10:00 Oxygen Delivery Method Room Air 08/17/25 10:00 Height 6 ft 08/15/25 16:51 Weight 80.5 kg 08/15/25 16:51 Telemetry Type Remote Telemetry 08/17/25 07:00 Telemetry Monitoring Continues 08/17/25 07:00 Telemetry Heart Rate 72 08/17/25 07:00 Telemetry SPO2 97 04/20/25 09:07 EKG RI Interval 0.17 08/17/25 07:00 EKG QRS Interval 0.07 08/17/25 07:00 Telemetry Strip Reading NSR 08/17/25 07:00 Imaging: EXAM: CHEST RADIOGRAPH TECHNIQUE: Single frontal chest radiograph. HISTORY: Hypotension COMPARISON: 07/25/2025 IMPRESSION: No acute findings. The heart size is normal. Mediastinal contours and pulmonary vasculature are within normal limits. The lungs are clear. There is no pleural effusion. There is no pneumothorax. Lab Results Last 24 Hours: 08/17/25 05:29 WBC 2.87 L RBC 2.94 L Hgb 7.9 L Hct 26.6 L MCV 90.5 MCH 26.9 L MCHC 29.7 L RDW Coeff of Delia 17.7 H Plt Count 89 L Immature Gran % (Auto) 0.3 Neut % (Auto) 43.6 Lymph % (Auto) 39.7 [place] % (Auto) 10.5 H Eos % (Auto) 5.2 Baso % (Auto) 0.7 Neut # (Auto) 1.3 L Lymph # (Auto) 1.1 [place] # (Auto) 0.3 L Eos # (Auto) 0.2 Baso # (Auto) 0.0 Immature Gran # (Auto) 0.0 Sodium 133.6 L Potassium 3.94 Chloride 103.5 Carbon Dioxide 26.5 Anion Gap 7.54 BUN 14.8 Creatinine 1.31 H Estimated GFR (MDRD) 54.00 BUN/Creatinine Ratio 11.29 Glucose 103.7 Calcium 8.60 Magnesium 1.45 L Total Bilirubin 0.33 AST 33.0 ALT 15.5 Alkaline Phosphatase 50.6 L Total Protein 6.21 L Albumin 3.60 Globulin 2.61 Albumin/Globulin Ratio 1.37 Discharge Instructions Discharge Planning: Discharge Planning > [address] Amanda mazariegos Discharge Medications: Medications at Discharge (Home Meds & RX) pantoprazole 40 mg tablet,delayed release (Protonix) 40 mg PO BID #60 tabs 02/13/25 atorvastatin 20 mg tablet (Lipitor) 20 mg PO DAILY 07/25/25 escitalopram oxalate 10 mg tablet (Lexapro) 10 mg PO DAILY 07/25/25 metoprolol tartrate 50 mg tablet 50 mg PO DAILY #30 tabs 07/27/25 albuterol sulfate 90 mcg/actuation aerosol inhaler 2 puff inhalation QID PRN shortness of breath or wheezing #8.5 grams 07/31/25 hydrocodone 10 mg-acetaminophen 325 mg tablet 1 tab PO Q6H PRN pain #120 tabs 07/31/25 pregabalin 100 mg capsule 100 mg PO BID #60 caps 07/31/25 magnesium oxide 400 mg (241.3 mg magnesium) tablet 400 mg PO BID #60 tabs 08/17/25 Discharge Plan Discharge Discharge Orders: Discharge Patient (ONCE); Ordered 08/17/25 Ordered By: ANGEL SERNA Activity Restrictions/Additional Instructions: DISCHARGE TO HOME DX: DEHYDRATION, NED, LOW MAGNESIUM DIET: HEART HEALTHY ACTIVITY: FALL PRECAUTIONS PUSH FLUIDS OTHER THAN ALCOHOL F/U WITH Primary Care Provider ANOTHER MAGNESIUM SUPPLEMENT HAS BEEN PRESCRIBED, PLEASE PICK IT UP AND TAKE IT Instructions: Hypomagnesemia (DC) Patient Disposition: HOME SELF-CARE Prescriptions: Continued pantoprazole [Protonix] 40 mg tablet,delayed release (DR/EC) 40 mg PO BID Qty: 60 3RF hydrocodone-acetaminophen 10-325 mg tablet 1 tab PO Q6H PRN (Reason: pain) Qty: 120 0RF pregabalin 100 mg capsule 100 mg PO BID Qty: 60 0RF atorvastatin [Lipitor] 20 mg tablet 20 mg PO DAILY escitalopram oxalate [Lexapro] 10 mg tablet 10 mg PO DAILY metoprolol tartrate 50 mg Tablet 50 mg PO DAILY Qty: 30 0RF albuterol sulfate 90 mcg/actuation HFA aerosol inhaler 2 puff inhalation QID PRN (Reason: shortness of breath or wheezing) Qty: 8.5 2RF Changed magnesium oxide 400 mg (241.3 mg magnesium) Tablet 400 mg PO BID Qty: 60 0RF Did you review [place] [employer] for ALL controlled substances?: Not Applicable Discussed opioids are addictive and Narcan is available by prescription or from pharmacy.: No Condition: Stable Referrals: SHANNON BLACK APRN [Primary Care Provider, NURSE PRACTITIONER] - 08/24/25 10:20 am
[2025-08-17 11:17] LABS: CREATININE, URINE 58.8 mg/dL (Not Estab.)
[2025-08-17 15:19] VITALS: BP 139/57; PULSE 67; TEMP 97.1
== END 2025-08-17 14:50 | disposition home or self-care (01) | DRG 684 ==
LOC: ED 13:39 → MEDSURG B 15:40
PROVIDERS: ADMIT Hospitalist; ATTEND Physician Assistant